=== PATIENT | male | born 1945 | race Caucasian/White ===

== ENCOUNTER → 2017-11-18 16:18 | Outpatient (CLI) | payer MEDICARE, MEDICAID, SELFPAY | PROVIDERS: PCP Family Medicine; Visit Provider Family Medicine | DX: I25.10 Atherosclerotic heart disease of native coronary artery without angina pectoris (principal); R06.02 Shortness of breath | CPT/HCPCS: 93005 ==

== ENCOUNTER → 2017-11-21 09:47 | Outpatient (CLI) | payer MEDICARE, MEDICAID, SELFPAY ==
--- NOTE | 2017-11-21 10:03 | CA_ITS ---
PROCEDURE: 2-D M-mode and color Doppler study INDICATIONS FOR THE TEST: Chest pain COPD Heart Murmur Tobacco Smoking Palpitations Fatigue Syncope Edema HypertensionXDiabetes Mellitus Rheumatic Fever SOBXDOEXObesity HyperlipidemiaX Family History HD Additional History CM,ASHD PATIENT INFORMATION HEIGHT: 65 WEIGHT:195 GENDER: Male B/P:130/80 2-D/M-MODE INTERPRETATION: 2-D MEASUREMENTS OBSERVED VALUES IN CMS Right Ventricular Dimension (RVDd) 1.8 Interventricular Septum (Thickness)(IVsd) 1.1 Left Ventricular Internal Dimensions(LVIDd) 4.7 Left Ventricular Posterior Wall (Thickness)(LVPWd) 1.0 Aortic Root 3.3 Aortic Cusp Separation 1.9 Left Atrial Dimensions (LAD) 3.8 2D 1. Left atrium is mildly enlarged, left ventricle is normal size, there is mild concentric left ventricular hypertrophy present, visually estimated ejection fraction 55% with no obvious regional wall motion abnormality. 2. The right atrium and right ventricle are normal size and contractility. 3. The aortic valve is thickened and calcified leaflet continue to display mobility. 4. The mitral and tricuspid valve leaflets are minimally thickened. 5. The pulmonic valve is poorly visualized. 6. No significant pericardial effusion noted. DOPPLER INTERROGATION: Doppler interrogation of the aortic, mitral and tricuspid valvular presence of mild aortic, mild mitral and tricuspid regurgitation, tricuspid regurgitant jet velocity is insufficient for calculation of the right ventricular systolic pressure, grade 1 diastolic dysfunction seen with tissue Doppler evidence of raised left atrial pressure. CONCLUSION: 1. Mildly enlarged left atrium, normal left ventricular size, mild concentric left ventricular hypertrophy, visually estimated ejection fraction 55% with no obvious regional wall motion abnormality, grade 1 diastolic dysfunction seen with tissue Doppler evidence of raised left atrial pressure. Mild mitral, aortic and tricuspid regurgitation. 3. No significant pericardial effusion noted.
== END ==
PROVIDERS: Family Provider Family Medicine; PCP Family Medicine; Visit Provider Family Medicine
DX: R06.02 Shortness of breath (principal); I25.5 Ischemic cardiomyopathy; I25.10 Atherosclerotic heart disease of native coronary artery without angina pectoris
CPT/HCPCS: 93306

== ENCOUNTER 2017-11-28 11:25 | Inpatient (IN) | payer MEDICARE, MEDICAID, SELFPAY ==
[2017-11-28] VITALS (9 sets, daily range): BP systolic 107–190; BP diastolic 60–112; PULSE 66–103; RESP 18–28; TEMP 36.7–37.2; O2SAT 92–99; BMI 27.8; BMI 33.3; BMI 31.1
--- NOTE | 2017-11-28 | CT_ITS ---
CT angio chest HISTORY: Shortness of breath, chest pain, positive d-dimer ITS.REASON: POS D-DIMER ORDERING PHYSICIAN: Neville Dye MD PATIENT AGE: 72 years TECHNIQUE: Axial images obtained following the administration of 75 mL of Isovue 370 . Sagittal, and coronal reformatted images are also generated and reviewed. COMPARISON: None FINDINGS: There are scattered pulmonary emboli present in the proximal aspect of the right lower lobe branches, right middle lobe branches, left upper lobe branches and left lower lobe branches of the pulmonary arteries. No saddle embolus evident. No aortic aneurysm or dissection. There are few small lymph nodes in the mediastinum most prominent in the subcarinal region measuring up to 2.2 x 1.7 cm. Small nodes are present in the left hilum There is a large hiatal hernia. There is mild cardiomegaly. No obvious pericardial effusion. There is patchy groundglass density in the lower lobes on both sides nonspecific There is a 1 cm noncalcified nodule in the left upper lobe. There is some micronodularity of the margins of this nodule. This is indeterminate and follow-up is recommended. Consolidation is present within the medial aspect of the lingula. Upper abdominal images show a large hiatal hernia. No acute bony anomalies. IMPRESSION: 1. Positive for bilateral pulmonary emboli 2. Consolidation within the lingula system with pneumonia. 3. Indeterminate 1 cm nodule in the left upper lobe. Neoplasm or noncalcified granuloma is considered. PET CT follow-up recommended when patient can tolerate. 4. Large hiatal hernia
--- NOTE | 2017-11-28 11:29 | XR_ITS ---
XR chest 2V HISTORY: ITS.REASON: CHEST PAIN WITH MOVEMENT ORDERING PHYSICIAN: Eriberto Martínez MD PATIENT AGE: 72 years COMPARISON: 03/13/2011 FINDINGS: Cardiomegaly without failure. There is a large hiatal hernia. Patchy density is present in the lingula with an area of pneumonia. No acute bony anomalies. IMPRESSION: 1. Cardiomegaly with hiatal hernia. 2. Patchy lingular infiltrate.
[2017-11-28 11:45] LABS: Basophils % 0.4 % (0.1-2.0); Eosinophils # 0.4 K/mm3 (0.0-0.4); Eosinophils % 4.4 % (0.1-12.0); Lymphocytes # 1.3 K/mm3 (0.7-4.5); Lymphocytes % 14.9 K/mm3 (10-50); Mean Corpuscular Hemoglobin 29.2 pg (27.0-31.2); Mean Corpuscular Volume 91.4 fl (80-94); Mean Platelet Volume 7.4 fl (7.4-10.4); Monocytes # 0.6 K/mm3 (0.1-1.0); Monocytes % 6.7 % (1.7-9.3); Neutrophils # 6.2 K/mm3 (1.8-7.8); Neutrophils % 73.6 % (37.0-80.0); Platelet Count 307 K/mm3 (142-424); Red Blood Count 5.15 M/mm3 (4.60-6.20); Red Cell Distribution Width 14.2 % (11.5-17.5); White Blood Count 8.4 K/mm3 (4.8-10.8)
--- NOTE | 2017-11-28 11:51 | HMH.EDCP ---
ED Disposition Clinical Impression: Chest pain, Hypertensive urgency, Hiatal hernia, Renal insufficiency, Pulmonary embolism Disposition: Still a Patient Condition on Discharge: Fair - Critical Care Critical Care Time: No Attestation: On 11/28/17, the high probability of a clinically significant, sudden or life threatening deterioration of the following system(s) required my full and direct attention, intervention and personal management. The time I documented below is in addition to time spent performing reported procedures but includes the following listed in this critical care notation. Medical Decision Making - Medical Records Medical records reviewed: Yes: I reviewed the patient's medical records. Vital Signs: 11/28/17 11:25 11/28/17 11:40 11/28/17 12:55 Temperature 98.1 F Temperature Source Oral Pulse Rate 85 Pulse Rate [Right Brachial] 66 103 H Respiratory Rate 18 18 Blood Pressure [Right Arm] 190/112 107/60 Blood Pressure Mean [Right Arm] 138 75 Blood Pressure Source [Right Arm] Automatic Cuff Automatic Cuff Blood Pressure Position [Right Arm] Sitting Sitting 02 Sat by Pulse Oximetry 98 99 Oxygen Delivery Method Room Air Room Air - Lab Data Lab Results 11/28/17 11:35: WBC 8.4, RBC 5.15, Hgb 15.0, Hct 47.0, MCV 91.4, MCH 29.2, MCHC 32.0, RDW 14.2, Plt Count 307, MPV 7.4, Neut % (Auto) 73.6, Lymph % (Auto) 14.9, [place] % (Auto) 6.7, Eos % (Auto) 4.4, Baso % (Auto) 0.4, Neut # (Auto) 6.2, Lymph # (Auto) 1.3, [place] # (Auto) 0.6, Eos # (Auto) 0.4, Baso # (Auto) 0.0 11/28/17 11:35: Sodium 143, Potassium 3.9, Chloride 110 H, Carbon Dioxide 29, Anion Gap 7.9, BUN 19 H, Creatinine 1.63 H, Estimated Creat Clear 52, Estimated GFR 42 L, Est GFR ( Amer) 50 L, Glucose 111 H, Calcium 9.4, Total Bilirubin 0.6, AST 18, ALT 30, Alkaline Phosphatase 79, Total Creatine Kinase 84, CK-MB (CK-2) 0.6, CK-MB (CK-2) Rel Index 0.7, Troponin I < 0.02, Total Protein 7.3, Albumin 3.5, Globulin 3.8 H, Albumin/Globulin Ratio 0.9 L 11/28/17 11:35: D-Dimer 2020 H* 11/28/17 11:35: B-Natriuretic Peptide 52 Result diagrams: 11/28/17 11:35 11/28/17 11:35 Orders (Tests/Meds): ED MEDICATIONS Generic Name Dose Route Start Last Admin Trade Name Freq PRN Reason Stop Dose Admin Aspirin 325 mg 11/29/17 09:00 Aspirin Ec 325mg Tablet PO 12/29/17 08:59 DAILY ZAIDA Enoxaparin Sodium 80 mg 11/28/17 14:30 Lovenox 80mg/0.8ml Syringe SQ 12/28/17 14:29 Q12H ZAIDA Sodium Chloride 1,000 mls @ 50 mls/hr 11/28/17 14:07 Sod Chloride 0.9% 1000ml Bag IV 12/28/17 14:06 .Q20H ZAIDA Discontinued Medications Generic Name Dose Route Start Last Admin Trade Name Freq PRN Reason Stop Dose Admin Albuterol/Ipratropium 3 ml 11/28/17 11:43 11/28/17 11:40 Duoneb 3ml Neb IH 11/28/17 11:44 3 ml ONCE ONE Administration Aspirin 324 mg 11/28/17 11:30 11/28/17 11:38 Aspirin 81mg Chewable Tablet PO 11/28/17 11:31 324 mg ONCE ONE Administration Aspirin 325 mg 11/29/17 09:00 Aspirin Ec 325mg Tablet PO 12/29/17 08:59 DAILY ZAIDA Enoxaparin Sodium 80 mg 11/28/17 12:30 11/28/17 12:44 Lovenox 80mg/0.8ml Syringe SQ 11/28/17 12:31 80 mg ONCE ONE Administration Sodium Chloride 250 mls @ 999 mls/hr 11/28/17 13:30 Sodium Chloride 0.9% 250ml Bag IV 11/28/17 13:45 .Q16M ONE Sodium Chloride 250 mls @ 999 mls/hr 11/28/17 13:45 Sodium Chloride 0.9% 250ml Bag IV 11/28/17 14:00 ONCE ONE Sodium Chloride 250 mls @ 999 mls/hr 11/28/17 14:07 Sodium Chloride 0.9% 250ml Bag IV 11/28/17 14:22 .Q16M ONE Sodium Chloride 250 mls @ 999 mls/hr 11/28/17 14:07 Sodium Chloride 0.9% 250ml Bag IV 11/28/17 14:22 ONCE ONE Iopamidol 70 ml 11/28/17 14:00 11/28/17 14:04 Rad-Isovue 300 75ml IV 11/28/17 14:01 70 ml ONCE ONE Administration Nitroglycerin 1 gm 11/28/17 12:30 11/28/17 12:30 Nitroglycerin 1 Inch Oint Ud
--- NOTE | 2017-11-28 11:54 | ED_ITS ---
ED Disposition Clinical Impression: Chest pain, Hypertensive urgency, Hiatal hernia, Renal insufficiency, Pulmonary embolism Disposition: Still a Patient Condition on Discharge: Fair - Critical Care Critical Care Time: No Attestation: On 11/28/17, the high probability of a clinically significant, sudden or life threatening deterioration of the following system(s) required my full and direct attention, intervention and personal management. The time I documented below is in addition to time spent performing reported procedures but includes the following listed in this critical care notation. Medical Decision Making - Medical Records Medical records reviewed: Yes: I reviewed the patient's medical records. Vital Signs: 11/28/17 11:25 11/28/17 11:40 11/28/17 12:55 Temperature 98.1 F Temperature Source Oral Pulse Rate 85 Pulse Rate [Right Brachial] 66 103 H Respiratory Rate 18 18 Blood Pressure [Right Arm] 190/112 107/60 Blood Pressure Mean [Right Arm] 138 75 Blood Pressure Source [Right Arm] Automatic Cuff Automatic Cuff Blood Pressure Position [Right Arm] Sitting Sitting 02 Sat by Pulse Oximetry 98 99 Oxygen Delivery Method Room Air Room Air - Lab Data Lab Results 11/28/17 11:35: WBC 8.4, RBC 5.15, Hgb 15.0, Hct 47.0, MCV 91.4, MCH 29.2, MCHC 32.0, RDW 14.2, Plt Count 307, MPV 7.4, Neut % (Auto) 73.6, Lymph % (Auto) 14.9 , [place] % (Auto) 6.7, Eos % (Auto) 4.4, Baso % (Auto) 0.4, Neut # (Auto) 6.2, Lymph # (Auto) 1.3, [place] # (Auto) 0.6, Eos # (Auto) 0.4, Baso # (Auto) 0.0 11/28/17 11:35: Sodium 143, Potassium 3.9, Chloride 110 H, Carbon Dioxide 29, Anion Gap 7.9, BUN 19 H, Creatinine 1.63 H, Estimated Creat Clear 52, Estimated GFR 42 L, Est GFR ( Amer) 50 L, Glucose 111 H, Calcium 9.4, Total Bilirubin 0.6, AST 18, ALT 30, Alkaline Phosphatase 79, Total Creatine Kinase 84 , CK-MB (CK-2) 0.6, CK-MB (CK-2) Rel Index 0.7, Troponin I < 0.02, Total Protein 7.3, Albumin 3.5, Globulin 3.8 H, Albumin/Globulin Ratio 0.9 L 11/28/17 11:35: D-Dimer 2020 H* 11/28/17 11:35: B-Natriuretic Peptide 52 Result diagrams: 11/28/17 11:35 11/28/17 11:35 Orders (Tests/Meds): ED MEDICATIONS Generic Name Dose Route Start Last Admin Trade Name Freq PRN Reason Stop Dose Admin Aspirin 325 mg 11/29/17 09:00 Aspirin Ec 325mg Tablet PO 12/29/17 08:59 DAILY ZAIDA Enoxaparin Sodium 80 mg 11/28/17 14:30 Lovenox 80mg/0.8ml Syringe SQ 12/28/17 14:29 Q12H ZAIDA Sodium Chloride 1,000 mls @ 50 mls/hr 11/28/17 14:07 Sod Chloride 0.9% 1000ml Bag IV 12/28/17 14:06 .Q20H ZAIDA Discontinued Medications Generic Name Dose Route Start Last Admin Trade Name Freq PRN Reason Stop Dose Admin Albuterol/Ipratropium 3 ml 11/28/17 11:43 11/28/17 11:40 Duoneb 3ml Neb IH 11/28/17 11:44 3 ml ONCE ONE Administration Aspirin 324 mg 11/28/17 11:30 11/28/17 11:38 Aspirin 81mg Chewable Tablet PO 11/28/17 11:31 324 mg ONCE ONE Administration Aspirin 325 mg 11/29/17 09:00 Aspirin Ec 325mg Tablet PO 12/29/17 08:59 DAILY ZAIDA Enoxaparin Sodium 80 mg 11/28/17 12:30 11/28/17 12:44 Lovenox 80mg/0.8ml Syringe SQ 11/28/17 12:31 80 mg ONCE ONE Administration Sodium Chloride 250 mls @ 999 mls/hr 02
[2017-11-28 12:06] LABS: Alanine Aminotransferase 30 U/L (12-78); Albumin Level 3.5 gm/dL (3.4-5.0); Albumin/Globulin Ratio 0.9 (1.1-1.8); Alkaline Phosphatase 79 U/L (46-116); Anion Gap 7.9 mEq/L (5-15); Aspartate Amino Transferase 18 U/L (15-37); Bilirubin,Total 0.6 mg/dL (0.2-1.0); Blood Urea Nitrogen 19 mg/dL (7-18); CKMB Relative Index 0.7 U/L (0-4.0); Calcium 9.4 mg/dL (8.5-10.1); Carbon Dioxide 29 mmol/L (21.0-32.0); Chloride 110 mmol/L (98-107); Creatine Kinase 84 U/L (39-308); Creatine Kinase MB 0.6 mg/ml (0.0-3.6); Creatinine Clearance Estimated 52 mL/min (0-300); Creatinine,Serum 1.63 mg/dL (0.70-1.30); Estimated Glomerular Filt Rate 42 ml/min (>60); GFR (African American) 50 ML/MIN (>60); Globulin 3.8 gm/dl (1.3-3.2); Glucose 111 mg/dL (74-106); Potassium 3.9 mmoL/L (3.5-5.1); Sodium 143 mmol/L (136-145); Total Protein,Serum 7.3 gm/dL (6.4-8.2); Troponin I < 0.02 ng/ml (0.00-0.06)
[2017-11-28 12:24] LABS: D-Dimer 2020 (0-400)
--- NOTE | 2017-11-28 13:11 | PC.NURSE ---
PT UP TO RESTROOM
--- NOTE | 2017-11-28 16:02 | HMH.HP ---
*Admission Date: 11/28/17 <Spring Gerard 11/28/17 17:13> *Chief complaint: SOA <Spring Gerard 11/28/17 17:13> *History of present illness: The chart is reviewed. Admitted with pulmonary embolisms. Receiving enoxaparin complains of chest pain. Pain medication will be ordered. [facility] <Neville Dye - 11/28/17 19:44> Mr. Gallardo is a 72 year old white male with a history of hypertension and [place]. 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 He then woke up at 0800 am with left-sided chest pain and SOA. He describes the pain as dull and it increases with deep breathing, cough and upper extremities movement. He denies having fever, chills, or productive sputum. He denies any radiation. He denies palpitations and nausea. He denies hematemesis, coffee-ground emesis, or bleeding per rectum. His blood pressure was 180/100 in the ER. He was evaluated and a CTA showed a PE. He was admitted. <Spring Gerard 11/28/17 17:41> [facility] History Medical History: Reports:: Cardiomyopathy, Hyperlipidemia, Hypertension, Myocardial Infarction Denies:: Cancer, Diabetes Mellitus Type 1, Diabetes Mellitus Type 2, MRSA <Spring Gerard 11/28/17 17:41> Other Surgeries: Yes: Hernia Repair <Spring Gerard 11/28/17 17:13> Comment: Fatty tumor removed from back <Spring Gerard 11/28/17 17:41> - *Social History Educational Level: Completed High School <Spring Gerard 11/28/17 17:13> Smoking Status: Unknown if ever smoked <Spring Gerard 11/28/17 17:13> Tobacco Type: smokeless tobacco <Spring Gerard 11/28/17 17:13> Smoking End Date: 2 weeks ago <Spring Gerard 11/28/17 17:13> Alcohol Intake: never <Spring Gerard 11/28/17 17:13> Occupational Status: retired <Spring Gerard 11/28/17 17:13> - Psychiatric History Expresses thoughts of harming self/others: None <Spring Gerard 11/28/17 17:13> Suicide Plan Description: No Plan <Spring Gerard 11/28/17 17:13> *Family Hx:: Diabetes, Hypertension <Spring Gerard 11/28/17 17:41> Review of Systems - Constitutional Denies body ache(s), Denies chills, Denies weakness <Spring Gerard 11/28/17 17:41> - Eyes Denies blurry vision, Denies double vision <Spring Gerard 11/28/17 17:41> - ENT Denies nasal discharge, Denies sore throat <Spring Gerard 11/28/17 17:41> - *Cardiovascular Reports chest pain, Denies irregular heart rhythm, Denies leg swelling <Spring Gerard 11/28/17 17:41> - *Respiratory Reports shortness of breath <Spring Gerard 11/28/17 17:41> - *Gastrointestinal Denies abdominal pain, Denies constipation, Denies nausea, Denies vomiting <Spring Gerard 11/28/17 17:41> - *Genitourinary Denies difficulty urinating, Denies painful urination <Spring Gerard 11/28/17 17:41> - *Musculoskeletal Denies joint pain, Denies muscle weakness <Spring Gerard 11/28/17 17:41> - *Neurologic Denies headache(s), Denies dizziness <Spring Gerard 11/28/17 17:41> Meds Home Medications Medication Instructions Recorded Confirmed Type Aspirin [Aspir 81] 81 mg PO DAILY 11/28/17 11/28/17 History Aspirin [[place] Aspirin] 81 mg PO DAILY 11/28/17 11/28/17 History Atorvastatin Calcium [Atorvastatin 80 mg PO DAILY 11/28/17 11/28/17 History 80mg Tab] B12/Levomefolate Calcium/B-6 1 each PO DAILY 11/28/17 11/28/17 History [Folbic Rf Tablet] Citalopram Hydrobromide [Celexa 20 mg PO DAILY 11/28/17 11/28/17 History 20mg Tablet] Ergocalciferol (Vitamin D2) 400 unit PO DAILY 11/28/17 11/28/17 History [Vitamin D] Fenofibrate Nanocrystallized 145 mg PO DAILY 11/28/17 11/28/17 History [Fenofibrate] Lisinopril [Lisinopril 10mg Tab] 10 mg PO DAILY MDD . 11/28/17 11/28/17 History Metoprolol Tartrate [Lopressor 100 mg PO DAILY 11/28/17 11/28/17 History 100mg Tablet] Metoprolol Tartrate [Lopressor 50 mg PO PM 11/28/17 11/28/17 History 50mg tablet] Mirabegron [Myrbetriq] 25 mg PO DAILY 11/28/17 11/28/17 History Niacin [[facility] [place]
--- NOTE | 2017-11-28 17:13 | P.HP_ITS ---
*Admission Date: 11/28/17 <Spring Gerard 11/28/17 17:13> *Chief complaint: SOA <Spring Gerard 11/28/17 17:13> *History of present illness: The chart is reviewed. Admitted with pulmonary embolisms. Receiving enoxaparin complains of chest pain. Pain medication will be ordered. [facility] <Neville Dye - 11/28/17 19:44> Mr. Gallardo is a 72 year old white male with a history of hypertension and [place]. 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 He then woke up at 0800 am with left-sided chest pain and SOA. He describes the pain as dull and it increases with deep breathing, cough and upper extremities movement. He denies having fever, chills, or productive sputum. He denies any radiation. He denies palpitations and nausea. He denies hematemesis, coffee-ground emesis , or bleeding per rectum. His blood pressure was 180/100 in the ER. He was evaluated and a CTA showed a PE. He was admitted. <Spring Gerard 11/28/17 17:41> [facility] History Medical History: Reports:: Cardiomyopathy, Hyperlipidemia, Hypertension, Myocardial Infarction Denies:: Cancer, Diabetes Mellitus Type 1, Diabetes Mellitus Type 2, MRSA < Spring Gerard 11/28/17 17:41> Other Surgeries: Yes: Hernia Repair <Spring Gerard 11/28/17 17:13> Comment: Fatty tumor removed from back <Spring Gerard 11/28/17 17:41> - *Social History Educational Level: Completed High School <Spring Gerard 11/28/17 17:13> Smoking Status: Unknown if ever smoked <Spring Gerard 11/28/17 17:13> Tobacco Type: smokeless tobacco <Spring Gerard 11/28/17 17:13> Smoking End Date: 2 weeks ago <Spring Gerard 11/28/17 17:13> Alcohol Intake: never <Spring Gerard 11/28/17 17:13> Occupational Status: retired <Spring Gerard 11/28/17 17:13> - Psychiatric History Expresses thoughts of harming self/others: None <Spring Gerard 11/28/17 17: 13> Suicide Plan Description: No Plan <Spring Gerard 11/28/17 17:13> *Family Hx:: Diabetes, Hypertension <Spring Gerard 11/28/17 17:41> Review of Systems - Constitutional Denies body ache(s), Denies chills, Denies weakness <Spring Gerard 11/28/17 17:41> - Eyes Denies blurry vision, Denies double vision <Spring Gerard 11/28/17 17:41> - ENT Denies nasal discharge, Denies sore throat <Spring Gerard 11/28/17 17:41> - *Cardiovascular Reports chest pain, Denies irregular heart rhythm, Denies leg swelling <Spring Gerard 11/28/17 17:41> - *Respiratory Reports shortness of breath <Spring Gerard 11/28/17 17:41> - *Gastrointestinal Denies abdominal pain, Denies constipation, Denies nausea, Denies vomiting < Spring Gerard 11/28/17 17:41> - *Genitourinary Denies difficulty urinating, Denies painful urination <Spring Gerard 17:41> - *Musculoskeletal Denies joint pain, Denies muscle weakness <Spring Gerard 11/28/17 17:41> - *Neurologic Denies headache(s), Denies dizziness <Spring Gerard 11/28/17 17:41> Meds Home Medications Medication Instructions Recorded Confirmed Type Aspirin [Aspir 81] 81 mg PO DAILY 11/28/17 11/28/17 History Aspirin [[employer] Aspirin] 81 mg PO DAILY 11/28/17 11/28/17 History Atorvastatin Calcium [Atorvastatin 80 mg PO DAILY 11/28/17 11/28/17 History 80mg Tab] B12/Levomefolate Calcium/B-6 1 each PO DAILY 11/28/17 11/28/17 History [Folbic Rf Tablet] Citalopram Hydrobromide [Celexa 20 mg PO DAILY 11/28/17 11/28/17 History 20mg Tablet] Ergocalciferol (Vitamin D2) 400 unit PO DAILY 11/28/17 11/28/17 History [Vitamin D] Fen
[2017-11-28 18:04] LABS: Troponin I < 0.02 ng/ml (0.00-0.06)
--- NOTE | 2017-11-28 19:15 | PC.NURSE ---
REPORT GIVEN TO ETTA CAZARES RN
[2017-11-28 21:00] LABS: Troponin I < 0.02 ng/ml (0.00-0.06)
[2017-11-29] VITALS (11 sets, daily range): BP systolic 116–154; BP diastolic 71–102; PULSE 65–86; RESP 18–34; TEMP 36.6–37.1; O2SAT 93–97
--- NOTE | 2017-11-29 03:43 | PC.NURSE ---
PT CONT TO HAVE CHEST/PLEURAL PAIN. PT STATES IT FEELS LIKE A PULLED MUSCLE. LUNGS ARE DIMINISHED. PT REMAINS ON 2L OF NC WITH AN SAT OF 95% AT THIS TIME. 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 MORPHINE 4 MG WAS ADMIN X2 AND 2MG OF MORPHINE X1. PT REMAINS NSR ON TELEMETRY. LOVENOX ADMIN PER DEC. ABX ALSO ADMIN PER DEC. PT WAS EDUCATED ON MEDICATIONS GIVEN. NO OTHER CONCERNS AT THIS TIME. WILL CONT TO MONITOR.
--- NOTE | 2017-11-29 07:40 | P.CONPHA_ITS ---
[facility] Pharmacy VTE Monitoring - Patient Demographics Admission date: 11/28/17 Report Date: 11/29/17 Time: 07:39 Allergies/Adverse Reactions: Patient Allergies No Known Allergies Allergy (Verified 11/28/17 11:26) Height: 1.65 m Weight: 84.878 kg Patient Problems: Current Active Problems Chest pain (Acute) Hypertensive urgency (Acute) Hiatal hernia (Chronic) Renal insufficiency (Acute) Pulmonary embolism (Acute) - VTE Risk Labs: VTE Related Lab Results Hgb 15.0 g/dL (14.1-18.0) 11/28/17 11:35 Hct 47.0 % (42.0-52.0) 11/28/17 11:35 Plt Count 307 K/mm3 (142-424) 11/28/17 11:35 BUN 19 mg/dL (7-18) H 11/28/17 11:35 Creatinine 1.63 mg/dL (0.70-1.30) H 11/28/17 11:35 Estimated Creat Clear 52 mL/min (0-300) 11/28/17 11:35 Was VTE Risk Assessment Performed: Yes VTE Score: 1 VTE Risk Level: Very Low Risk - Prophylaxis VTE Prophylaxis Ordered?: Yes Types of VTE Prophylaxis: Pharmacological Pharmacologic Type: Enoxaparin - VTE Diagnosis Confirmed Treatment or plan recommended: Continue Current Treatment
--- NOTE | 2017-11-29 07:51 | PC.NURSE ---
0715 RECEIVED REPORT FROM ETTA CAZARES RN
--- NOTE | 2017-11-29 08:39 | HMH.ACPN2 ---
Internal Medicine - PN: Subj *Date: 11/29/17 *Time: 08:39 Interval history: Patient states he is feeling better today. Chest pain is improving. He slept last night and ate most of his breakfast. Exam Vital signs and Labs for Last 24 Hours: Temp Pulse Resp BP Pulse Ox 98.1 F 70 20 122/76 93 L 11/29/17 04:00 11/29/17 04:00 11/29/17 04:00 11/29/17 04:00 11/29/17 04:00 Laboratory Results - last 24 hr 11/28/17 17:40: Troponin I < 0.02 11/28/17 20:30: Troponin I < 0.02 I & O for Last 24 hours: Intake & Output 11/26/17 11/27/17 11/28/17 11/29/17 11:59 11:59 11:59 11:59 Intake Total 992 / 992 Balance 992 / 992 Weight 187 lb 2 oz - Constitutional no acute distress - *Routine Respiratory Exam Present: CTA bilaterally - *Routine Cardiovascular Exam Present: RRR - *Routine Abdominal Exam Present: soft, normoactive bowel sounds. Absent: tenderness - *Routine Extremities Exam Absent: edema Assessment and Plan (1) Pulmonary embolism Current visit: Yes Status: Acute Category: Medical Code(s): I26.99 - Other pulmonary embolism without acute cor pulmonale (2) Chest pain Current visit: Yes Status: Acute Category: Medical Code(s): R07.9 - Chest pain, unspecified (3) Hypertensive urgency Current visit: Yes Status: Acute Category: Medical Code(s): I16.0 - Hypertensive urgency (4) Renal insufficiency Current visit: Yes Status: Acute Category: Medical Code(s): N28.9 - Disorder of kidney and ureter, unspecified (5) Hiatal hernia Current visit: Yes Status: Chronic Category: Medical Code(s): K44.9 - Diaphragmatic hernia without obstruction or gangrene - Assessment and plan all Dx Assessment and Plan for all problems:: Patient has been started on rocephin for a possible pneumonia. He is currently getting lovenox. Will get lower extremity dopplers today.
--- NOTE | 2017-11-29 11:00 | NVE_ITS ---
Venous Exam Indications: 415.19 Other pulmonary embolism and infarction. IMPRESSIONS 1. There is no evidence of significant Reflux. 2. No evidence of deep or superficial vein thrombosis involving the right lower extremity and left lower extremity History: PMH: Pulmonary embolus. Risk factors: Hypertension. Complete lower extremity venous duplex evaluation. Doppler flow study including spectral analysis, color and edgar scale imaging. Location: Bedside. Patient status: Inpatient. Tables: Venous flow and imaging: + +-------+ + Location Overall Flow properties + +-------+ + Right common femoral Patent Normal phasicity; spontaneous; normal augmentation; compressible + +-------+ + Right saphenofemoral junction Patent Compressible + +-------+ + Right profunda femoral Patent Compressible + +-------+ + Right femoral Patent Normal phasicity; spontaneous; normal augmentation; compressible; no reflux + +-------+ + Right greater saphenous Patent Normal phasicity; spontaneous; normal augmentation; compressible + +-------+ + Right popliteal Patent Normal phasicity; spontaneous; normal augmentation; compressible + +-------+ + Right posterior tibial Patent Compressible + +-------+ + Right peroneal Patent Compressible + +-------+ + Right gastrocnemius Patent Compressible + +-------+ + Right soleal Patent Compressible + +-------+ + Left common femoral Patent Normal phasicity; spontaneous; normal augmentation; compressible + +-------+ + Left saphenofemoral junction Patent Compressible + +-------+ + Left profunda femoral Patent Compressible + +-------+ + Left femoral Patent Normal phasicity; spontaneous; normal augmentation; compressible + +-------+ + Left greater saphenous Patent Normal phasicity; spontaneous; normal augmentation; compressible + +-------+ + Left popliteal
--- NOTE | 2017-11-29 14:35 | XR_ITS ---
XR chest portable HISTORY: Follow-up pneumonia ITS.REASON: SOA, CHEST PAIN ORDERING PHYSICIAN: Neville Dye MD PATIENT AGE: 72 years COMPARISON: To 118 FINDINGS: There are low lung lines. There is a hiatal hernia with mild cardiomegaly. Increasing consolidation is present within the lingula consistent with worsening pneumonia. IMPRESSION: Worsening lingular pneumonia
[2017-11-29 14:52] LABS: ABG Base Excess -1.2 mmol/L (-2.4-2.3); ABG HCO3 23.5 mmhg (22.0-26.0); ABG Oxygen Saturation 96 % (90-100); ABG PCO2 38.7 mmhg (35.0-45.0); ABG TCO2 24.7 mmhg (23-27)
[2017-11-29 14:53] LABS: Allen's Test ACCEPTABLE; Oxygen 2LPM %
[2017-11-29 14:54] LABS: Source L RADIAL
[2017-11-29 15:12] LABS: INR 1.03 (0.9-1.1); Prothrombin Time 11.1 seconds (9.4-11.8)
[2017-11-29 15:26] LABS: Creatine Kinase 61 U/L (39-308); Troponin I < 0.02 ng/ml (0.00-0.06)
[2017-11-29 15:31] LABS: CKMB Relative Index 0.8 U/L (0-4.0); Creatine Kinase MB < 0.5 mg/ml (0.0-3.6)
[2017-11-29 15:50] LABS: INR 1.04 (0.9-1.1); Prothrombin Time 11.2 seconds (9.4-11.8)
[2017-11-29 17:05] LABS: Basophils % 0.4 % (0.1-2.0); Eosinophils # 0.2 K/mm3 (0.0-0.4); Eosinophils % 1.7 % (0.1-12.0); Hematocrit 45.9 % (42.0-52.0); Hemoglobin 14.6 g/dL (14.1-18.0); Lymphocytes % 10.6 K/mm3 (10-50); Mean Corpuscular HGB Conc 31.9 g/dL (31.8-35.4); Mean Corpuscular Hemoglobin 29.6 pg (27.0-31.2); Mean Corpuscular Volume 92.8 fl (80-94); Mean Platelet Volume 8.3 fl (7.4-10.4); Monocytes # 0.6 K/mm3 (0.1-1.0); Monocytes % 6.7 % (1.7-9.3); Neutrophils # 7.8 K/mm3 (1.8-7.8); Neutrophils % 80.7 % (37.0-80.0); Platelet Count 271 K/mm3 (142-424); Red Blood Count 4.94 M/mm3 (4.60-6.20); Red Cell Distribution Width 14.1 % (11.5-17.5); White Blood Count 9.6 K/mm3 (4.8-10.8)
--- NOTE | 2017-11-29 19:38 | PC.NURSE ---
PATIENT IS RESTING IN BED WITH FAMILY AT BEDSIDE. HE HAS SEVERE PAIN LEFT CHEST WHEN COUGHING. EARLIER IN SHIFT AROUND 1430 HE HAD A COUGHING SPELL AND BECAME SOA AND DIAPHORETIC. DR TELLEZ ORDERED A CARDIAC WORKUP INCLUDING CXR, CARDIAC ENZYMES, EKG, AND ABG. CARDIAC WORKUP WAS UNREMARKABLE. PATIENT CALMED DOWN AND STARTED FEELING BETTER AFTER 4MG MORPHINE GIVEN PER MAR. PATIENT IS CALM AT THIS TIME VISITING WITH FAMILY. CALL LIGHT WITHIN REACH WILL CONTINUE TO MONITOR
[2017-11-30] VITALS (12 sets, daily range): BP systolic 111–146; BP diastolic 63–90; PULSE 70–90; RESP 16–30; TEMP 36.7–36.9; O2SAT 93–96
--- NOTE | 2017-11-30 00:42 | PC.NURSE ---
AT [address] TELLEZ NOTIFIED OF PTS DECREASED O2 SAT TO LOW 80'S. PT WITH COUGHING SPELL, DIAPHORETIC. LUNGS DIMINISHED THOUGHOUT WITH WHEEZING. INCREASED OXYGEN TO 3L PER NC. MORPHINE 2MG IV GIVEN. RECEIVED ORDER FOR DUONEB NOW AND TID. PT EVENTUALLY FELL OFF TO SLEEP AND O2 SATS 91-93 PERCENT ON 3L PER NC.
--- NOTE | 2017-11-30 06:28 | PC.NURSE ---
PT HAS RESTED WELL SINCE EPISODE OF DECREASED SATS, AND COUGH. REQUESTING MORPHINE EVERY 2 -3 HOURS FOR CHEST DISCOMFORT AND GENERALIZED PAIN. AT BSD. NSR ON TELEMETRY. PT CURRENTLY ON 3L PER NC WITH O2 SAT 93 PERCENT.
[2017-11-30 06:49] LABS: INR 1.12 (0.9-1.1); Prothrombin Time 12.1 seconds (9.4-11.8)
[2017-11-30 06:56] LABS: Alanine Aminotransferase 23 U/L (12-78); Albumin/Globulin Ratio 0.8 (1.1-1.8); Alkaline Phosphatase 62 U/L (46-116); Anion Gap 13.2 mEq/L (5-15); Aspartate Amino Transferase 21 U/L (15-37); Bilirubin,Total 0.5 mg/dL (0.2-1.0); Blood Urea Nitrogen 24 mg/dL (7-18); Calcium 9.3 mg/dL (8.5-10.1); Carbon Dioxide 26 mmol/L (21.0-32.0); Chloride 106 mmol/L (98-107); Creatinine Clearance Estimated 54 mL/min (0-300); Creatinine,Serum 1.45 mg/dL (0.70-1.30); Estimated Glomerular Filt Rate 48 ml/min (>60); GFR (African American) 58 ML/MIN (>60); Glucose 110 mg/dL (74-106); Potassium 4.2 mmoL/L (3.5-5.1); Sodium 141 mmol/L (136-145)
--- NOTE | 2017-11-30 07:46 | PC.NURSE ---
REPORT OBTAINED FROM AMBAR EVANS
--- NOTE | 2017-11-30 15:27 | P.PN_ITS ---
Internal Medicine - PN: Subj *Date: 11/30/17 *Time: 15:23 Interval history: The patient was seen this morning. He had some discomfort during the night but seems more stable this morning. His states that she thinks he is doing better. Exam Vital signs and Labs for Last 24 Hours: Temp Pulse Resp BP Pulse Ox 98.1 F 70 18 127/63 96 11/30/17 12:00 11/30/17 12:00 11/30/17 12:00 11/30/17 12:00 11/30/17 12:00 Laboratory Results - last 24 hr 11/29/17 14:55: Total Creatine Kinase 61, CK-MB (CK-2) < 0.5, CK-MB (CK-2) Rel Index 0.8, Troponin I < 0.02 11/29/17 14:55: PT 11.1, INR 1.03 11/29/17 14:55: WBC 9.6, RBC 4.94, Hgb 14.6, Hct 45.9, MCV 92.8, MCH 29.6, MCHC 31.9, RDW 14.1, Plt Count 271, MPV 8.3, Neut % (Auto) 80.7 H, Lymph % (Auto) 10.6, [place] % (Auto) 6.7, Eos % (Auto) 1.7, Baso % (Auto) 0.4, Neut # (Auto) 7.8 , Lymph # (Auto) 1.0, [place] # (Auto) 0.6, Eos # (Auto) 0.2, Baso # (Auto) 0.0 11/29/17 15:30: PT 11.2, INR 1.04 11/30/17 05:50: Sodium 141, Potassium 4.2, Chloride 106, Carbon Dioxide 26, Anion Gap 13.2, BUN 24 H D, Creatinine 1.45 H, Estimated Creat Clear 54, Estimated GFR 48 L, Est GFR ( Amer) 58 L, Glucose 110 H, Calcium 9.3, Total Bilirubin 0.5, AST 21, ALT 23, Alkaline Phosphatase 62, Total Protein 7.0 , Albumin 3.0 L, Globulin 4.0 H, Albumin/Globulin Ratio 0.8 L 11/30/17 05:50: PT 12.1 H, INR 1.12 H I & O for Last 24 hours: Intake & Output 11/28/17 11/29/17 11/30/17 12/01/17 11:59 11:59 11:59 11:59 Intake Total 992 / 992 1773 / 1773 Balance 992 / 992 1773 / 1773 Weight 187 lb 2 oz Microbiology Reports for the Last 24 Hours: Microbiology 11/29/17 20:40 Sputum - Expectorated Sputum Gram Stain - Final - Constitutional no acute distress - *Routine HEENT Exam Eye: Present: PERRL ENT: Present: mucous membranes moist - *Routine Respiratory Exam Present: decreased breath sounds Comments: Air movement. Some bibasilar rales. I do not hear any specific endings in the lingular area. - *Routine Cardiovascular Exam Present: RRR - *Routine Extremities Exam Absent: edema Assessment and Plan (1) Pulmonary embolism Current visit: Yes Status: Acute Category: Medical Code(s): I26.99 - Other pulmonary embolism without acute cor pulmonale (2) Chest pain Current visit: Yes Status: Acute Category: Medical Code(s): R07.9 - Chest pain, unspecified (3) Hypertensive urgency Current visit: Yes Status: Acute Category: Medical Code(s): I16.0 - Hypertensive urgency (4) Renal insufficiency Current visit: Yes Status: Acute Category: Medical Code(s): N28.9 - Disorder of kidney and ureter, unspecified (5) Hiatal hernia Current visit: Yes Status: Chronic Category: Medical Code(s): K44.9 - Diaphragmatic hernia without obstruction or gangrene - Assessment and plan all Dx Assessment and Plan for all problems:: Daily Coumadin ordered.
--- NOTE | 2017-11-30 15:46 | HMH.PHAVTE ---
[facility] Pharmacy VTE Monitoring - Patient Demographics Admission date: 11/28/17 Report Date: 11/30/17 Time: 15:46 Allergies/Adverse Reactions: Patient Allergies No Known Allergies Allergy (Verified 11/28/17 11:26) Height: 1.65 m Weight: 84.878 kg Patient Problems: Current Active Problems Chest pain (Acute) Hypertensive urgency (Acute) Hiatal hernia (Chronic) Renal insufficiency (Acute) Pulmonary embolism (Acute) Confusion (Acute) - VTE Risk Labs: VTE Related Lab Results Hgb 14.6 g/dL (14.1-18.0) 11/29/17 14:55 Hct 45.9 % (42.0-52.0) 11/29/17 14:55 Plt Count 271 K/mm3 (142-424) 11/29/17 14:55 PT 12.1 seconds (9.4-11.8) H 11/30/17 05:50 INR 1.12 (0.9-1.1) H 11/30/17 05:50 BUN 24 mg/dL (7-18) H D 11/30/17 05:50 Creatinine 1.45 mg/dL (0.70-1.30) H 11/30/17 05:50 Estimated Creat Clear 54 mL/min (0-300) 11/30/17 05:50 Was VTE Risk Assessment Performed: Yes VTE Score: 1 VTE Risk Level: Very Low Risk - Prophylaxis VTE Prophylaxis Ordered?: Yes Types of VTE Prophylaxis: TEDS Knee High, Pharmacological Pharmacologic Type: Enoxaparin (AND WARFARIN) - VTE Diagnosis Confirmed Treatment or plan recommended: Add Warfarin Warfarin counseling provided if indicated?: Yes Bridge therapy started inpt?: Yes (LOVENOX AND WARFARIN) Comment: INR ON DISCHARGE IS 2.49
[2017-11-30 16:18] LABS: Basophils % 0.4 % (0.1-2.0); Eosinophils # 0.3 K/mm3 (0.0-0.4); Eosinophils % 3.7 % (0.1-12.0); Hematocrit 40.6 % (42.0-52.0); Lymphocytes # 0.9 K/mm3 (0.7-4.5); Lymphocytes % 11.3 K/mm3 (10-50); Mean Corpuscular Hemoglobin 29.8 pg (27.0-31.2); Mean Corpuscular Volume 93.1 fl (80-94); Mean Platelet Volume 7.9 fl (7.4-10.4); Monocytes # 0.6 K/mm3 (0.1-1.0); Monocytes % 6.5 % (1.7-9.3); Neutrophils # 6.5 K/mm3 (1.8-7.8); Neutrophils % 78.2 % (37.0-80.0); Platelet Count 222 K/mm3 (142-424); Red Blood Count 4.36 M/mm3 (4.60-6.20); White Blood Count 8.4 K/mm3 (4.8-10.8)
--- NOTE | 2017-11-30 17:50 | PC.NURSE ---
patient has done well this shift. has been up to use bathroom but was reminded to not walk much at this time. did get sob at times with exertion. is starting to cough up some sputum that was tinged with blood a couple of times. no concerns at this time. still having pain in chest staying about a 5. vss will continue to monitor.
--- NOTE | 2017-11-30 19:57 | PC.NURSE ---
report give to cristal ward
[2017-12-01] VITALS (15 sets, daily range): BP systolic 144–186; BP diastolic 68–108; PULSE 60–96; RESP 18–22; TEMP 36.3–36.9; O2SAT 93–97
--- NOTE | 2017-12-01 04:36 | PC.NURSE ---
NSR NOTED PER MACHINE CHOCOLATE MOLDER. WHEEZING NOTED PER AUSCULTATION OF LUNG SOUNDS.
--- NOTE | 2017-12-01 05:40 | PC.NURSE ---
C/O PULLING PAIN IN CHEST FOLLOWING COUGHING, REQUESTED PRN PAIN MEDICATION, RATED PAIN 7/10 ON 0-10 JUICE SCALEMAN. MEDICATED WITH PRN MORPHINE PER DEC.
[2017-12-01 06:14] LABS: Prothrombin Time 22.8 seconds (9.4-11.8)
--- NOTE | 2017-12-01 10:23 | CT_ITS ---
CT abdomen pelvis w con CLINICAL INDICATION: Abdominal tenderness and bloating. Left upper lobe nodule, evaluate for neoplasm ITS.REASON: PE ORDERING PHYSICIAN: Neville Dye MD PATIENT AGE: 72 years COMPARISON: 11/30/2015 TECHNIQUE: Axial images obtained with sagittal and coronal reformats. PROCEDURE: Oral Contrast: Redicat IV Contrast: 75 mL Isovue-[id number]. FINDINGS: Is a moderate to large sized hiatal hernia with compressive atelectasis. Small left pleural effusion. Atelectatic change left lung base. Pulmonary emboli noted in the lower lobe branches. Atelectasis or infiltrate within the lingula and left lower lobe No focal liver lesion. The gallbladder, spleen, pancreas and adrenal glands are unremarkable. No renal mass or obstructing renal or ureteral calculi. Diverticulum is present projecting off the descending portion of the duodenum Unremarkable appendix. No evidence of intestinal obstruction or free air. Tiny umbilical hernia contains fat. Colonic diverticulosis noted. No evidence of diverticulitis. Lobular soft tissue density is present in the right inguinal region 2.8 x 2.2 cm similar to the previous exam. Mildly enlarged prostate of 5.8 cm. There is a small left inguinal hernia containing fat. Grade 1 spondylitic spondylolisthesis L5-S1. IMPRESSION: 1. Large hiatal hernia. 2. Small left effusion with bibasilar atelectasis and/or infiltrate 3. No acute abdominal or pelvic findings. 4. Soft tissue density right inguinal region similar to the previous exam and could be related to postsurgical change with scarring from prior hernia repair. Adenopathy is also a consideration. Small left inguinal hernia 4. Mildly enlarged prostate 5. No evidence of abdominal or pelvic metastasis
--- NOTE | 2017-12-01 10:26 | HMH.ACPN2 ---
Internal Medicine - PN: Subj *Date: 12/01/17 *Time: 10:26 Interval history: He feels significantly better. He is not having chest pain at this time. His chest is slightly tender to palpation. His lungs sound clear. He complains of constipation. His INR is therapeutic. Coumadin dose will be adjusted. CT of the abdomen will be obtained. Exam Vital signs and Labs for Last 24 Hours: Temp Pulse Resp BP Pulse Ox 97.4 F L 96 H 20 156/100 94 L 12/01/17 08:00 12/01/17 08:00 12/01/17 08:00 12/01/17 08:00 12/01/17 08:30 Laboratory Results - last 24 hr 11/30/17 16:03: WBC 8.4, RBC 4.36 L, Hgb 13.0 L, Hct 40.6 L, MCV 93.1, MCH 29.8, MCHC 32.0, RDW 14.0, Plt Count 222, MPV 7.9, Neut % (Auto) 78.2, Lymph % (Auto) 11.3, [place] % (Auto) 6.5, Eos % (Auto) 3.7, Baso % (Auto) 0.4, Neut # (Auto) 6.5, Lymph # (Auto) 0.9, [place] # (Auto) 0.6, Eos # (Auto) 0.3, Baso # (Auto) 0.0 12/01/17 05:35: PT 22.8 H, INR 2.10 H Laboratory Tests 11/30/17 11/30/17 11/30/17 05:50 05:50 16:03 WBC 8.4 Hgb 13.0 L Hct 40.6 L INR 1.12 H Sodium 141 Potassium 4.2 Chloride 106 BUN 24 H D Creatinine 1.45 H 12/01/17 05:35 WBC Hgb Hct INR 2.10 H Sodium Potassium Chloride BUN Creatinine I & O for Last 24 hours: Intake & Output 11/28/17 11/29/17 11/30/17 12/01/17 11:59 11:59 11:59 11:59 Intake Total 992 / 992 1773 / 1773 2803 / 2803 Output Total 950 / 950 Balance 992 / 992 1773 / 1773 1853 / 1853 Weight 187 lb 2 oz 187 lb 2 oz - Constitutional no acute distress - *Routine HEENT Exam Eye: Present: PERRL ENT: Present: mucous membranes moist - Routine Chest/Breast/Axilla Exam Chest wall: Present: tenderness (Lessened) - *Routine Respiratory Exam Present: CTA bilaterally - *Routine Cardiovascular Exam Present: RRR, S4 - *Routine Abdominal Exam Present: soft. Absent: tenderness, organomegaly - *Routine Extremities Exam Absent: edema - *Routine Neurological Exam Present: alert, oriented X3 Assessment and Plan (1) Pulmonary embolism Current visit: Yes Status: Acute Category: Medical Code(s): I26.99 - Other pulmonary embolism without acute cor pulmonale (2) Chest pain Current visit: Yes Status: Acute Category: Medical Code(s): R07.9 - Chest pain, unspecified (3) Hypertensive urgency Current visit: Yes Status: Acute Category: Medical Code(s): I16.0 - Hypertensive urgency (4) Renal insufficiency Current visit: Yes Status: Acute Category: Medical Code(s): N28.9 - Disorder of kidney and ureter, unspecified (5) Hiatal hernia Current visit: Yes Status: Chronic Category: Medical Code(s): K44.9 - Diaphragmatic hernia without obstruction or gangrene
--- NOTE | 2017-12-01 10:29 | P.PN_ITS ---
Internal Medicine - PN: Subj *Date: 12/01/17 *Time: 10:26 Interval history: He feels significantly better. He is not having chest pain at this time. His chest is slightly tender to palpation. His lungs sound clear. He complains of constipation. His INR is therapeutic. Coumadin dose will be adjusted. CT of the abdomen will be obtained. Exam Vital signs and Labs for Last 24 Hours: Temp Pulse Resp BP Pulse Ox 97.4 F L 96 H 20 156/100 94 L 12/01/17 08:00 12/01/17 08:00 12/01/17 08:00 12/01/17 08:00 12/01/17 08:30 Laboratory Results - last 24 hr 11/30/17 16:03: WBC 8.4, RBC 4.36 L, Hgb 13.0 L, Hct 40.6 L, MCV 93.1, MCH 29.8 , MCHC 32.0, RDW 14.0, Plt Count 222, MPV 7.9, Neut % (Auto) 78.2, Lymph % (Auto ) 11.3, [place] % (Auto) 6.5, Eos % (Auto) 3.7, Baso % (Auto) 0.4, Neut # (Auto) 6.5, Lymph # (Auto) 0.9, [place] # (Auto) 0.6, Eos # (Auto) 0.3, Baso # (Auto) 0.0 12/01/17 05:35: PT 22.8 H, INR 2.10 H Laboratory Tests 11/30/17 11/30/17 11/30/17 05:50 05:50 16:03 WBC 8.4 Hgb 13.0 L Hct 40.6 L INR 1.12 H Sodium 141 Potassium 4.2 Chloride 106 BUN 24 H D Creatinine 1.45 H 12/01/17 05:35 WBC Hgb Hct INR 2.10 H Sodium Potassium Chloride BUN Creatinine I & O for Last 24 hours: Intake & Output 11/28/17 11/29/17 11/30/17 12/01/17 11:59 11:59 11:59 11:59 Intake Total 992 / 992 1773 / 1773 2803 / 2803 Output Total 950 / 950 Balance 992 / 992 1773 / 1773 1853 / 1853 Weight 187 lb 2 oz 187 lb 2 oz - Constitutional no acute distress - *Routine HEENT Exam Eye: Present: PERRL ENT: Present: mucous membranes moist - Routine Chest/Breast/Axilla Exam Chest wall: Present: tenderness (Lessened) - *Routine Respiratory Exam Present: CTA bilaterally - *Routine Cardiovascular Exam Present: RRR, S4 - *Routine Abdominal Exam Present: soft. Absent: tenderness, organomegaly - *Routine Extremities Exam Absent: edema - *Routine Neurological Exam Present: alert, oriented X3 Assessment and Plan (1) Pulmonary embolism Current visit: Yes Status: Acute Category: Medical Code(s): I26.99 - Other pulmonary embolism without acute cor pulmonale (2) Chest pain Current visit: Yes Status: Acute Category: Medical Code(s): R07.9 - Chest pain, unspecified (3) Hypertensive urgency Current visit: Yes Status: Acute Category: Medical Code(s): I16.0 - Hypertensive urgency (4) Renal insufficiency Current visit: Yes Status: Acute Category: Medical Code(s): N28.9 - Disorder of kidney and ureter, unspecified (5) Hiatal hernia Current visit: Yes Status: Chronic Category: Medical Code(s): K44.9 - Diaphragmatic hernia without obstruction or gangrene
--- NOTE | 2017-12-01 11:41 | P.PN_ITS ---
Internal Medicine - PN: Subj *Date: 12/01/17 *Time: 11:39 Exam Vital signs and Labs for Last 24 Hours: Temp Pulse Resp BP Pulse Ox 97.4 F L 96 H 20 156/100 94 L 12/01/17 08:00 12/01/17 08:00 12/01/17 08:00 12/01/17 08:00 12/01/17 08:30 Laboratory Results - last 24 hr 11/30/17 16:03: WBC 8.4, RBC 4.36 L, Hgb 13.0 L, Hct 40.6 L, MCV 93.1, MCH 29.8 , MCHC 32.0, RDW 14.0, Plt Count 222, MPV 7.9, Neut % (Auto) 78.2, Lymph % (Auto ) 11.3, [place] % (Auto) 6.5, Eos % (Auto) 3.7, Baso % (Auto) 0.4, Neut # (Auto) 6.5, Lymph # (Auto) 0.9, [place] # (Auto) 0.6, Eos # (Auto) 0.3, Baso # (Auto) 0.0 12/01/17 05:35: PT 22.8 H, INR 2.10 H I & O for Last 24 hours: Intake & Output 11/28/17 11/29/17 11/30/17 12/01/17 23:59 23:59 23:59 23:59 Intake Total 384 / 384 1328 / 1328 1413 / 1413 2443 / 2443 Output Total 800 / 800 150 / 150 Balance 384 / 384 1328 / 1328 613 / 613 2293 / 2293 Weight 84.878 kg 84.878 kg 84.878 kg Assessment and Plan (1) Pulmonary embolism Current visit: Yes Status: Acute Category: Medical Code(s): I26.99 - Other pulmonary embolism without acute cor pulmonale (2) Chest pain Current visit: Yes Status: Acute Category: Medical Code(s): R07.9 - Chest pain, unspecified (3) Hypertensive urgency Current visit: Yes Status: Acute Category: Medical Code(s): I16.0 - Hypertensive urgency (4) Renal insufficiency Current visit: Yes Status: Acute Category: Medical Code(s): N28.9 - Disorder of kidney and ureter, unspecified (5) Hiatal hernia Current visit: Yes Status: Chronic Category: Medical Code(s): K44.9 - Diaphragmatic hernia without obstruction or gangrene The patient's infection will respond to the chosen ABx?: Yes Is the patient receiving the right drug, dose, and route?: Yes Could a more targeted ABx be ordered?: No
--- NOTE | 2017-12-01 17:09 | PC.NURSE ---
BLOOD PRESSURE ELEVATED AT THIS TIME. GIVING NIGHT DOSE OF METOPROLOL NOW. WILL RECHECK BP IN 45MINUTES. IF NO CHANGE WILL NOTIFY
[2017-12-01 17:26] LABS: PSA, Free 0.87 ng/mL; Prostate Specific Ag 3.3 ng/mL (0.0-4.0)
--- NOTE | 2017-12-01 18:01 | PC.NURSE ---
CALLED DR. TELLEZ TO REPORT INCREASE OF PATIENT BP OF 150'S OVER 108 AND THAT IT HAD BEEN HIGHER AT TIMES. ALSO TOLD MD THAT METOPROLOL WAS GIVEN AND MD ASKED ABOUT PATIENT BP MEDS. MD STATED TO GIVE PATIENT 10MG OF LISINOPRIL NOW AND TO CHANGE THE DAILY DOSE OF LISINOPRIL TO 20MG
--- NOTE | 2017-12-01 19:51 | PC.NURSE ---
SOME FAMILY CONCERNS WITH PATIENT APPEARING CONFUSED AT TIMES. STAFF HAS NOTICED SOME MILD CONFUSION AT TIMES, THAT PATIENT SEEMS TO CATCH SELF WHEN SAYING SOME THINGS. APPEARS THAT STRESS OF HOSPITAL STAY IS CAUSING SOME CONFUSION AT TIMES, AND HAS BEEN SEEN PULLLING AT CORDS AND SOME FORGETFULNESS. PASSED TO CLIENT CARE SPECIALIST NURSE THIS INFO TO STAY AWARE OF
--- NOTE | 2017-12-01 20:13 | PC.NURSE ---
nurse notifiied of pts elevated bp
--- NOTE | 2017-12-01 22:18 | PC.NURSE ---
[employer] MANAG[employer] TRAINEE PROGRAM STORES FOR ROSALINDA AT 2130. DR. TELLEZ RESPONDED TO PAGE AT 2136. NOTIFIED OF ELEVATED BP: 157/103 NOTED ON 1999 VITAL SIGN ROUND. MILD CONFUSION NOTED WELL ON ASSESSMENT. PT IS A&OX3 BUT MAKES INAPPROPRIATE STATEMENTS TO FAMILY AND STAFF. FOR EXAMPLE, PT HAS STATED LOOK AT ALL THAT WATER OUT THERE AND POINTS TO THE [address] WAY. STATING TO RT ARE YOU MY SNAPPER ON? NO WATER WAS NOTED IN [address]. ON ASSESSMENT, PERRLA NOTED, WOODWORKING CRAFTSMAN EQUAL BILAT, NO FACIAL DROOPING NOTED, FACE REMAINS SYMMETRICAL WITH SMILE. BP WAS OBTAINED AT 2129 AGAIN AND NOTED AT 157/97. OTHER VS NOTED WNL. PRN MORPHINE HAS NOT BEEN ADMINISTERED THIS SHIFT. ADDITIONAL BP MEDICATION WAS ADMINISTERED PER DAY SHIFT RN. DR. ETLLEZ ORDERED AMLODIPINE 2.5MG PO ONE TIME DOSE. THIS ORDER WAS VERIFIED WITH/ REPEATED BACK TO , CONFIRMED ORDER.
[2017-12-02] VITALS (11 sets, daily range): BP systolic 140–178; BP diastolic 76–110; PULSE 64–87; RESP 18–20; TEMP 36.6–36.9; O2SAT 91–96
--- NOTE | 2017-12-02 04:10 | PC.NURSE ---
nurse notifieed of pts bp
--- NOTE | 2017-12-02 05:58 | PC.NURSE ---
NO CHANGE SINCE LAST DOCUMENTED. ON REASSESSMENT PT REMAINED A&OX3 BUT INAPPROPIATE BEHAVIOR AND STATEMENTS ARE STILL BEING MADE. DRUG COORDINATOR HAVE REMAINED EQUAL AND PERRLA REMAINS. INCONTINENT EPISODES NOTED. PT WOKE UP IN MIDDLE OF NIGHT AND STATED HEY HONEY, LET'S GET OUT OF HERE. GIVE ME MY SHOES AND LET'S GO. SAFETY DEVICE WAS APPLIED WHILE WAS SLEEPING. WEANED OXYGEN FROM 3LNC TO 1LNC AND PT HAS TOLERATED WELL WITH O2SATS REMAINING >90%. NSR NOTED PER ROADING ENGINEER. VSS. WILL CONTINUE TO MONITOR.
[2017-12-02 06:29] LABS: INR 3.18 (0.9-1.1); Prothrombin Time 34.8 seconds (9.4-11.8)
--- NOTE | 2017-12-02 08:49 | HMH.ACPN2 ---
Internal Medicine - PN: Subj *Date: 12/02/17 *Time: 08:49 Interval history: Laboratory Tests 12/02/17 05:55 INR 3.18 H Patient Denies CP and SOB; stayed with him all night and states that he has been confused; eating OK Nurses say BP remains elevated Exam Vital signs and Labs for Last 24 Hours: Temp Pulse Resp BP Pulse Ox 98.2 F 79 20 178/97 91 L 12/02/17 04:00 12/02/17 06:15 12/02/17 04:00 12/02/17 04:00 12/02/17 06:15 Laboratory Results - last 24 hr 11/29/17 15:30: Prostate Specific Ag 3.3, Free PSA 0.87, % Free PSA 26.4 12/02/17 05:55: PT 34.8 H, INR 3.18 H I & O for Last 24 hours: Intake & Output 11/29/17 11/30/17 12/01/17 12/02/17 11:59 11:59 11:59 11:59 Intake Total 992 / 992 1773 / 1773 2803 / 2803 1934 / 1934 Output Total 950 / 950 200 / 200 Balance 992 / 992 1773 / 1773 1853 / 1853 1734 / 1734 Weight 187 lb 2 oz 187 lb 2 oz Microbiology Reports for the Last 24 Hours: Microbiology 11/29/17 20:40 Sputum - Expectorated Sputum Gram Stain - Final - *Routine Respiratory Exam Present: CTA bilaterally - *Routine Cardiovascular Exam Present: RRR - *Routine Abdominal Exam Present: soft, normoactive bowel sounds. Absent: tenderness - *Routine Extremities Exam Present: edema (trace bilaterally) Assessment and Plan (1) Pulmonary embolism Current visit: Yes Status: Acute Category: Medical Code(s): I26.99 - Other pulmonary embolism without acute cor pulmonale (2) Chest pain Current visit: Yes Status: Acute Category: Medical Code(s): R07.9 - Chest pain, unspecified (3) Hypertensive urgency Current visit: Yes Status: Acute Category: Medical Code(s): I16.0 - Hypertensive urgency (4) Renal insufficiency Current visit: Yes Status: Acute Category: Medical Code(s): N28.9 - Disorder of kidney and ureter, unspecified (5) Hiatal hernia Current visit: Yes Status: Chronic Category: Medical Code(s): K44.9 - Diaphragmatic hernia without obstruction or gangrene (6) Confusion Current visit: Yes Status: Acute Category: Medical Code(s): R41.0 - Disorientation, unspecified - Assessment and plan all Dx Assessment and Plan for all problems:: will add Amlodipine qd
[2017-12-02 09:17] LABS: Basophils % 0.4 % (0.1-2.0); Eosinophils # 0.5 K/mm3 (0.0-0.4); Eosinophils % 9.3 % (0.1-12.0); Hematocrit 41.8 % (42.0-52.0); Hemoglobin 13.6 g/dL (14.1-18.0); Lymphocytes # 0.6 K/mm3 (0.7-4.5); Lymphocytes % 11.8 K/mm3 (10-50); Mean Corpuscular HGB Conc 32.6 g/dL (31.8-35.4); Mean Corpuscular Hemoglobin 29.1 pg (27.0-31.2); Mean Corpuscular Volume 89.3 fl (80-94); Mean Platelet Volume 7.7 fl (7.4-10.4); Monocytes # 0.3 K/mm3 (0.1-1.0); Monocytes % 6.2 % (1.7-9.3); Neutrophils # 3.9 K/mm3 (1.8-7.8); Neutrophils % 72.4 % (37.0-80.0); Platelet Count 247 K/mm3 (142-424); Red Blood Count 4.68 M/mm3 (4.60-6.20); Red Cell Distribution Width 13.8 % (11.5-17.5); White Blood Count 5.4 K/mm3 (4.8-10.8)
[2017-12-02 09:28] LABS: Alanine Aminotransferase 35 U/L (12-78); Albumin/Globulin Ratio 0.7 (1.1-1.8); Alkaline Phosphatase 59 U/L (46-116); Anion Gap 8.7 mEq/L (5-15); Aspartate Amino Transferase 33 U/L (15-37); Bilirubin,Total 0.3 mg/dL (0.2-1.0); Blood Urea Nitrogen 21 mg/dL (7-18); Calcium 9.6 mg/dL (8.5-10.1); Carbon Dioxide 30 mmol/L (21.0-32.0); Chloride 103 mmol/L (98-107); Creatinine Clearance Estimated 58 mL/min (0-300); Creatinine,Serum 1.37 mg/dL (0.70-1.30); Estimated Glomerular Filt Rate 51 ml/min (>60); GFR (African American) 62 ML/MIN (>60); Globulin 4.2 gm/dl (1.3-3.2); Glucose 115 mg/dL (74-106); Potassium 3.7 mmoL/L (3.5-5.1); Sodium 138 mmol/L (136-145); Total Protein,Serum 7.2 gm/dL (6.4-8.2)
--- NOTE | 2017-12-02 09:38 | XR_ITS ---
XR chest 2V HISTORY: Follow-up pneumonia ITS.REASON: PE, pneumonia ORDERING PHYSICIAN: Neville Dye MD PATIENT AGE: 72 years COMPARISON: 2-18 FINDINGS: Borderline cardiomegaly without failure. Moderate-sized hiatal hernia once again noted. There remains consolidation within the lingula not significant change. There is a small left pleural effusion. Degenerative changes are present in the shoulders and thoracic spine. IMPRESSION: 1. No change lingular infiltrate with small effusion. 2. Hiatal hernia.
[2017-12-02 15:18] LABS: PTT-LA 32.2 sec (0.0-51.9); Protein C Functional 84 % (73-180)
[2017-12-03] VITALS: BP 147/97; PULSE 70; PULSE 76; RESP 20; TEMP 36.3; O2SAT 93
--- NOTE | 2017-12-03 00:49 | PC.NURSE ---
AT 2255 DR. WALTERS NOTIFIED OF BP ELEVATED AT 1999 VITAL SIGN ROUND. OBTAINED BP AGAIN AT 2235. BP NOTED 167/97. DR. TELLEZ HAD ADDED AMLODIPINE ONCE A DAY TO PT'S MEDICATIONS. METOPROLOL, AMLODIPINE, LISINOPRIL, AND HCTZ ADMINISTERED ON DAY SHIFT BUT NO MEDICATIONS AVAILABLE FOR ADMINISTRATION ON FRONT SERVICES AGENT. ORDERED: ONE TIME DOSE OF 0.1 MG PO CLONIDINE CLONIDINE ADMINISTERED PER DEC.
--- NOTE | 2017-12-03 03:35 | PC.NURSE ---
NO COMPLAINTS STATED. PT STATED I FEEL GREAT. LUNG SOUNDS CLEAR BUT DIMINISHED IN BASES. TOLERATED RA WELL. NO CONFUSION NOTED THIS SHIFT. NSR NOTED PER YARDER BOSS. VSS. WILL CONTINUE TO MONITOR.
[2017-12-03 04:00] VITALS: BP 149/95; PULSE 68; PULSE 70; RESP 20; TEMP 36.5; O2SAT 92
[2017-12-03 05:57] VITALS: PULSE 71; O2SAT 91
[2017-12-03 05:59] VITALS: PULSE 66
[2017-12-03 06:22] LABS: Protein S Antigen, Total 91 % (60-150); Protein S Functional 85 % (63-140)
[2017-12-03 06:23] LABS: Lupus Reflex Interpretation Comment: (.)
[2017-12-03 07:05] LABS: INR 2.49 (0.9-1.1); Prothrombin Time 27.2 seconds (9.4-11.8)
[2017-12-03 08:00] VITALS: BP 123/84; PULSE 79; RESP 20; TEMP 36.4; O2SAT 93
--- NOTE | 2017-12-03 08:35 | HMH.ACPN2 ---
Internal Medicine - PN: Subj *Date: 12/03/17 *Time: 08:35 Interval history: Feels much better today; slept well last night; eating without problems; bowels are moving; he is voiding QS; he denies chest pain and shortness of breath; has been ambulating in the room without difficulty and shortness of breath states that both she and her slept well last night: She has noted no confusion; nursing documentation indicates no confusion. Exam Vital signs and Labs for Last 24 Hours: Temp Pulse Resp BP Pulse Ox 97.5 F L 79 20 123/84 93 L 12/03/17 08:00 12/03/17 08:00 12/03/17 08:00 12/03/17 08:00 12/03/17 08:00 Laboratory Results - last 24 hr 11/29/17 19:36: Functional Protein C 84, Protein S Antigen 91, Functional Protein S 85 11/29/17 19:36: LA PTT Screen 32.2, Dil Cliff Viper Venom 47.7 H, Lupus Anticoag Interp Comment: 12/02/17 09:05: Sodium 138, Potassium 3.7, Chloride 103, Carbon Dioxide 30, Anion Gap 8.7, BUN 21 H, Creatinine 1.37 H, Estimated Creat Clear 58, Estimated GFR 51 L, Est GFR ( Amer) 62, Glucose 115 H, Calcium 9.6, Total Bilirubin 0.3, AST 33 D, ALT 35 D, Alkaline Phosphatase 59, Total Protein 7.2, Albumin 3.0 L, Globulin 4.2 H, Albumin/Globulin Ratio 0.7 L 12/02/17 09:05: WBC 5.4 D, RBC 4.68, Hgb 13.6 L, Hct 41.8 L, MCV 89.3, MCH 29.1, MCHC 32.6, RDW 13.8, Plt Count 247, MPV 7.7, Neut % (Auto) 72.4, Lymph % (Auto) 11.8, [place] % (Auto) 6.2, Eos % (Auto) 9.3, Baso % (Auto) 0.4, Neut # (Auto) 3.9, Lymph # (Auto) 0.6 L, [place] # (Auto) 0.3, Eos # (Auto) 0.5 H, Baso # (Auto) 0.0 12/03/17 06:05: PT 27.2 H, INR 2.49 H 12/03/17 06:05: PT 27.2 H, INR 2.49 H I & O for Last 24 hours: Intake & Output 11/30/17 12/01/17 12/02/17 12/03/17 11:59 11:59 11:59 11:59 Intake Total 1773 / 1773 2803 / 2803 2174 / 2174 960 / 960 Output Total 950 / 950 200 / 200 100 / 100 Balance 1773 / 1773 1853 / 1853 1973 / 1973 860 / 860 Weight 187 lb 2 oz Microbiology Reports for the Last 24 Hours: Microbiology 11/29/17 20:40 Sputum - Expectorated Sputum Gram Stain - Final 11/29/17 20:40 Sputum - Expectorated Sputum Sputum Culture - Final Normal Respiratory [facility] Reports for the Last 24 Hours: 11/28/17 CTA of chest IMPRESSION: 1. Positive for bilateral pulmonary emboli 2. Consolidation within the lingula system with pneumonia. 3. Indeterminate 1 cm nodule in the left upper lobe. Neoplasm or noncalcified granuloma is considered. PET CT follow-up recommended when patient can tolerate. 4. Large hiatal hernia 12/02/17 CXR IMPRESSION: 1. No change lingular infiltrate with small effusion. 2. Hiatal hernia. 12/01/17 CT of abdomen and pelvis IMPRESSION: 1. Large hiatal hernia. 2. Small left effusion with bibasilar atelectasis and/or infiltrate 3. No acute abdominal or pelvic findings. 4. Soft tissue density right inguinal region similar to the previous exam and could be related to postsurgical change with scarring from prior hernia repair. Adenopathy is also a consideration. Small left inguinal hernia 4. Mildly enlarged prostate 5. No evidence of abdominal or pelvic metastasis - Constitutional no acute distress Comments: Awake and sitting up in the bed talking with his - *Routine Respiratory Exam Absent: accessory muscle use Comments: Review right basilar crackles - *Routine Cardiovascular Exam Present: RRR - *Routine Abdominal Exam Present: soft, normoactive bowel sounds. Absent: tenderness - *Routine Extremities Exam Present: full ROM. Absent: edema - *Routine Neurological Exam Present: alert, oriented X3 Assessment and Plan (1) Pulmonary embolism Current visit: Yes Status: Acute Category: Medical Code(s): I26.99 - Other pulmonary embolism without acute cor pulmonale (2) Chest pain Current visit: Yes Status: Acute Category: Medical Code(s): R07.9 - Chest pain, unspecified (3) Hypertensi
--- NOTE | 2017-12-03 08:39 | P.PN_ITS ---
Internal Medicine - PN: Subj *Date: 12/03/17 *Time: 08:35 Interval history: Feels much better today; slept well last night; eating without problems; bowels are moving; he is voiding QS; he denies chest pain and shortness of breath; has been ambulating in the room without difficulty and shortness of breath states that both she and her slept well last night: She has noted no confusion; nursing documentation indicates no confusion. Exam Vital signs and Labs for Last 24 Hours: Temp Pulse Resp BP Pulse Ox 97.5 F L 79 20 123/84 93 L 12/03/17 08:00 12/03/17 08:00 12/03/17 08:00 12/03/17 08:00 12/03/17 08:00 Laboratory Results - last 24 hr 11/29/17 19:36: Functional Protein C 84, Protein S Antigen 91, Functional Protein S 85 11/29/17 19:36: LA PTT Screen 32.2, Dil Cliff Viper Venom 47.7 H, Lupus Anticoag Interp Comment: 12/02/17 09:05: Sodium 138, Potassium 3.7, Chloride 103, Carbon Dioxide 30, Anion Gap 8.7, BUN 21 H, Creatinine 1.37 H, Estimated Creat Clear 58, Estimated GFR 51 L, Est GFR ( Amer) 62, Glucose 115 H, Calcium 9.6, Total Bilirubin 0.3, AST 33 D, ALT 35 D, Alkaline Phosphatase 59, Total Protein 7.2 , Albumin 3.0 L, Globulin 4.2 H, Albumin/Globulin Ratio 0.7 L 12/02/17 09:05: WBC 5.4 D, RBC 4.68, Hgb 13.6 L, Hct 41.8 L, MCV 89.3, MCH 29.1 , MCHC 32.6, RDW 13.8, Plt Count 247, MPV 7.7, Neut % (Auto) 72.4, Lymph % (Auto ) 11.8, [place] % (Auto) 6.2, Eos % (Auto) 9.3, Baso % (Auto) 0.4, Neut # (Auto) 3.9, Lymph # (Auto) 0.6 L, [place] # (Auto) 0.3, Eos # (Auto) 0.5 H, Baso # (Auto) 0.0 12/03/17 06:05: PT 27.2 H, INR 2.49 H 12/03/17 06:05: PT 27.2 H, INR 2.49 H I & O for Last 24 hours: Intake & Output 11/30/17 12/01/17 12/02/17 12/03/17 11:59 11:59 11:59 11:59 Intake Total 1773 / 1773 2803 / 2803 2174 / 2174 960 / 960 Output Total 950 / 950 200 / 200 100 / 100 Balance 1773 / 1773 1853 / 1853 1973 / 1973 860 / 860 Weight 187 lb 2 oz Microbiology Reports for the Last 24 Hours: Microbiology 11/29/17 20:40 Sputum - Expectorated Sputum Gram Stain - Final 11/29/17 20:40 Sputum - Expectorated Sputum Sputum Culture - Final Normal Res[facility] Reports for the Last 24 Hours: 11/28/17 CTA of chest IMPRESSION: 1. Positive for bilateral pulmonary emboli 2. Consolidation within the lingula system with pneumonia. 3. Indeterminate 1 cm nodule in the left upper lobe. Neoplasm or noncalcified granuloma is considered. PET CT follow-up recommended when patient can tolerate. 4. Large hiatal hernia 12/02/17 CXR IMPRESSION: 1. No change lingular infiltrate with small effusion. 2. Hiatal hernia. 12/01/17 CT of abdomen and pelvis IMPRESSION: 1. Large hiatal hernia. 2. Small left effusion with bibasilar atelectasis and/or infiltrate 3. No acute abdominal or pelvic findings. 4. Soft tissue density right inguinal region similar to the previous exam and could be related to postsurgical change with scarring from prior hernia repair. Adenopathy is also a consideration. Small left inguinal hernia 4. Mildly enlarged prostate 5. No evidence of abdominal or pelvic metastasis - Constitutional no acute distress Comments: Awake and sitting up in the bed talking with his - *Routine Respiratory Exam Absent: accessory muscle use Comments: Review right basilar crackles - *Routine Cardiovascular Exam Present: RRR - *
[2017-12-03 11:41] VITALS: BP 122/80; PULSE 64; RESP 20; O2SAT 97
--- NOTE | 2017-12-03 13:32 | PC.NURSE ---
was paged at 1300 about pt discharge, awaiting return call.
--- NOTE | 2017-12-04 08:12 | HMH.DCSUM ---
General - General Admission date: 11/28/17 Discharge date: 12/03/17 HPI HPI: Mr. Gallardo is a 72 year old white male with a history of hypertension and MS. 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 He then woke up at 0800 am with left-sided chest pain and SOA. He describes the pain as dull and it increases with deep breathing, cough and upper extremities movement. He denies having fever, chills, or productive sputum. He denies any radiation. He denies palpitations and nausea. He denies hematemesis, coffee-ground emesis, or bleeding per rectum. His blood pressure was 180/100 in the ER. He was evaluated and a CTA showed a PE. He was admitted. Objective Vital signs: Temp Pulse Resp BP Pulse Ox 97.5 F L 64 20 122/80 97 12/03/17 08:00 12/03/17 11:41 12/03/17 11:41 12/03/17 11:41 12/03/17 11:41 Narrative: - Constitutional no acute distress - *Routine HEENT Exam Head: Present: normocephalic, atraumatic Eye: Present: EOMI, PERRL ENT: Present: mucous membranes moist - *Routine Neck Exam Present: supple, full ROM - *Routine Respiratory Exam Present: CTA bilaterally - *Routine Cardiovascular Exam Present: RRR - *Routine Abdominal Exam Present: soft, normoactive bowel sounds. Absent: tenderness - *Routine Extremities Exam Absent: edema - *Routine Skin Exam Present: intact - *Routine Neurological Exam Present: alert, oriented X3 Hospital Course Hospital Course: The patient was started on lovenox for his PE. CXR showed a possible pneumonia, therefore he was started on abx as well. His lower extremity dopplers showed no DVT. He was started on coumadin. His CP resolved, but then he began having abdominal pain. A CT was ordered but showed nothing acute. He was adequately anticoagulated on Coumadin. There is 1 lupus study (viper venom)that is very slightly elevated. On repeat chest x-ray he still had a lingular infiltrate which Dr. Dye felt was connected with the pulmonary emboli more than an infectious process. He was, however discharged on Cefdinir as well as 5 mg of Coumadin daily. He will be seen back in the office soon for recheck of his INR. DS: Diagnosis - Discharge Diagnosis (1) Pulmonary embolism Status: Acute (2) Chest pain Status: Acute (3) Hypertensive urgency Status: Acute (4) Renal insufficiency Status: Acute (5) Hiatal hernia Status: Chronic Meds Home Medications Medication Instructions Recorded Confirmed Type Aspirin [Aspir 81] 81 mg PO DAILY 11/28/17 11/28/17 History Atorvastatin Calcium [Atorvastatin 80 mg PO HS 11/28/17 11/29/17 History 80mg Tab] B12/Levomefolate Calcium/B-6 1 each PO DAILY 11/28/17 11/28/17 History [Folbic Rf Tablet] Citalopram Hydrobromide [Celexa 20 mg PO DAILY 11/28/17 11/28/17 History 20mg Tablet] Ergocalciferol (Vitamin D2) 400 unit PO DAILY 11/28/17 11/28/17 History [Vitamin D] Fenofibrate Nanocrystallized 145 mg PO DAILY 11/28/17 11/28/17 History [Fenofibrate] Lisinopril [Lisinopril 10mg Tab] 10 mg PO DAILY 11/28/17 11/28/17 History Metoprolol Tartrate [Lopressor 100 mg PO DAILY 11/28/17 11/28/17 History 100mg Tablet] Metoprolol Tartrate [Lopressor 50 mg PO PM 11/28/17 11/28/17 History 50mg tablet] Mirabegron [Myrbetriq] 25 mg PO DAILY 11/28/17 11/28/17 History Niacin [Slo-Niacin] 250 mg PO HS 11/28/17 11/29/17 History Potassium Chloride [K-Tab ER 20 20 meq PO DAILY 11/28/17 11/28/17 History mEq] Temazepam [Restoril] 15 mg PO HS 11/28/17 11/29/17 History hydroCHLOROthiazide 12.5 mg PO QODHS 11/28/17 11/29/17 History [Hydrochlorothiazide 12.5mg Tab] Nitroglycerin 0.4 mg PO Q5MINP PRN 11/29/17 11/29/17 History Allergies Allergy/AdvReac Type Severity Reaction Status Date / Time No Known Allergies Allergy Verified 11/28/17 11:26 Discharge Plan - Patient Discharge Instructions ACTIVITY: Limited activi
--- NOTE | 2017-12-04 08:19 | P.DS_ITS ---
General - General Admission date: 11/28/17 Discharge date: 12/03/17 HPI HPI: Mr. Gallardo is a 72 year old white male with a history of hypertension and AL. 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 He then woke up at 0800 am with left-sided chest pain and SOA. He describes the pain as dull and it increases with deep breathing, cough and upper extremities movement. He denies having fever, chills, or productive sputum. He denies any radiation. He denies palpitations and nausea. He denies hematemesis, coffee-ground emesis , or bleeding per rectum. His blood pressure was 180/100 in the ER. He was evaluated and a CTA showed a PE. He was admitted. Objective Vital signs: Temp Pulse Resp BP Pulse Ox 97.5 F L 64 20 122/80 97 12/03/17 08:00 12/03/17 11:41 12/03/17 11:41 12/03/17 11:41 12/03/17 11:41 Narrative: - Constitutional no acute distress - *Routine HEENT Exam Head: Present: normocephalic, atraumatic Eye: Present: EOMI, PERRL ENT: Present: mucous membranes moist - *Routine Neck Exam Present: supple, full ROM - *Routine Respiratory Exam Present: CTA bilaterally - *Routine Cardiovascular Exam Present: RRR - *Routine Abdominal Exam Present: soft, normoactive bowel sounds. Absent: tenderness - *Routine Extremities Exam Absent: edema - *Routine Skin Exam Present: intact - *Routine Neurological Exam Present: alert, oriented X3 Hospital Course Hospital Course: The patient was started on lovenox for his PE. CXR showed a possible pneumonia , therefore he was started on abx as well. His lower extremity dopplers showed no DVT. He was started on coumadin. His CP resolved, but then he began having abdominal pain. A CT was ordered but showed nothing acute. He was adequately anticoagulated on Coumadin. There is 1 lupus study (viper venom)that is very slightly elevated. On repeat chest x-ray he still had a lingular infiltrate which Dr. Dye felt was connected with the pulmonary emboli more than an infectious process. He was, however discharged on Cefdinir as well as 5 mg of Coumadin daily. He will be seen back in the office soon for recheck of his INR. DS: Diagnosis - Discharge Diagnosis (1) Pulmonary embolism Status: Acute (2) Chest pain Status: Acute (3) Hypertensive urgency Status: Acute (4) Renal insufficiency Status: Acute (5) Hiatal hernia Status: Chronic Meds Home Medications Medication Instructions Recorded Confirmed Type Aspirin [Aspir 81] 81 mg PO DAILY 11/28/17 11/28/17 History Atorvastatin Calcium [Atorvastatin 80 mg PO HS 11/28/17 11/29/17 History 80mg Tab] B12/Levomefolate Calcium/B-6 1 each PO DAILY 11/28/17 11/28/17 History [Folbic Rf Tablet] Citalopram Hydrobromide [Celexa 20 mg PO DAILY 11/28/17 11/28/17 History 20mg Tablet] Ergocalciferol (Vitamin D2) 400 unit PO DAILY 11/28/17 11/28/17 History [Vitamin D] Fenofibrate Nanocrystallized 145 mg PO DAILY 11/28/17 11/28/17 History [Fenofibrate] Lisinopril [Lisinopril 10mg Tab] 10 mg PO DAILY 11/28/17 11/28/17 History Metoprolol Tartrate [Lopressor 100 mg PO DAILY 11/28/17 11/28/17 History 100mg Tablet] Metoprolol Tartrate [Lopressor 50 mg PO PM 11/28/17 11/28/17 History 50mg tablet] Mirabegron [Myrbetriq] 25 mg PO DAILY 11/28/17 11/28/17
[2017-12-04 18:16] LABS: Protein C Antigen 61 % (60-150)
[2017-12-04 18:18] LABS: PSA, Free 1.76 ng/mL; Prostate Specific Ag 8.5 ng/mL (0.0-4.0)
[2017-12-06 17:02] LABS: dRVVT 47.7 sec (0.0-47.0); dRVVT Mix 40.4 sec (0.0-47.0)
== END 2017-12-03 13:48 | disposition home or self-care (01) | DRG 176 ==
LOC: ER 13:53 → 2ND 11-29 10:25
PROVIDERS: Admitting Provider Family Medicine; Emergency Provider Emergency Medicine; Family Provider Family Medicine; PCP Family Medicine; Visit Provider Family Medicine
DX: I26.99 Other pulmonary embolism without acute cor pulmonale (principal); I42.9 Cardiomyopathy, unspecified; I16.0 Hypertensive urgency; N28.9 Disorder of kidney and ureter, unspecified; K44.9 Diaphragmatic hernia without obstruction or gangrene; K59.00 Constipation, unspecified; R41.0 Disorientation, unspecified; I10 Essential (primary) hypertension; I25.2 Old myocardial infarction; Z82.49 Family history of ischemic heart disease and other diseases of the circulatory system; Z83.3 Family history of diabetes mellitus; Z79.82 Long term (current) use of aspirin; Z79.899 Other long term (current) drug therapy
CPT/HCPCS: 36415; 71045; 71046; 71275; 74177; 80053; 81241; 82550; 82553; 82803; 83880; 84153; 84154; 84484; 85025; 85302; 85305; 85378; 85610; 85613; 87070; 87205; 93005; 93041; 93970; 94640; 94760; 94761; 96365; 99283; J2270; Q9967

== ENCOUNTER → 2018-03-19 15:28 | Outpatient (CLI) | payer MEDICARE, MEDICAID, SELFPAY ==
[2018-03-19 15:30] LABS: Microscopic, Urine URINE MICROSCOPIC (MICROSCOPIC)
[2018-03-19 15:43] LABS: Basophils % 0.8 % (0.1-2.0); Eosinophils # 0.4 K/mm3 (0.0-0.4); Eosinophils % 7.2 % (0.1-12.0); Hematocrit 43.5 % (42.0-52.0); Hemoglobin 14.6 g/dL (14.1-18.0); Lymphocytes # 1.3 K/mm3 (0.7-4.5); Mean Corpuscular HGB Conc 33.5 g/dL (31.8-35.4); Mean Corpuscular Hemoglobin 29.9 pg (27.0-31.2); Mean Corpuscular Volume 89.3 fl (80-94); Mean Platelet Volume 8.2 fl (7.4-10.4); Monocytes # 0.3 K/mm3 (0.1-1.0); Neutrophils # 2.8 K/mm3 (1.8-7.8); Platelet Count 213 K/mm3 (142-424); Red Blood Count 4.87 M/mm3 (4.60-6.20); Red Cell Distribution Width 16.3 % (11.5-17.5); White Blood Count 4.8 K/mm3 (4.8-10.8)
[2018-03-19 16:02] LABS: Appearance,Urine CLEAR (Clear); Bilirubin,Urine Negative (Negative); Blood, Urine Negative (Negative); Color,Urine YELLOW (Yellow); Glucose,Urine (UA) Negative (Negative); Ketones,Urine Negative (Negative); Leukocyte Esterase,Urine Negative (Negative); Nitrate,Urine Negative (Negative); PH,Urine 5.5 (5.0-8.5); Protein,Urine Negative (Negative); Specific Gravity, Urine >= 1.030 (1.005-1.030); Urobilinogen,Urine 0.2 EU/dl (0.2)
[2018-03-19 16:21] LABS: RBC,Urine Occasional #/hpf (0-3); WBC,Urine Occasional #/hpf (0-3)
[2018-03-19 16:22] LABS: Bacteria,Urine 1+ /lpf; Hyaline Casts,Urine Occasional #/lpf (0); Mucus,Urine 2+ /lpf; Squamous Epithelial Cell,Urine Occasional #/hpf (0-5)
[2018-03-19 21:27] LABS: Alanine Aminotransferase 38 U/L (12-78); Albumin Level 3.7 gm/dL (3.4-5.0); Albumin/Globulin Ratio 1.2 (1.1-1.8); Alkaline Phosphatase 56 U/L (46-116); Anion Gap 11.2 mEq/L (5-15); Aspartate Amino Transferase 16 U/L (15-37); Bilirubin,Total 0.3 mg/dL (0.2-1.0); Blood Urea Nitrogen 22 mg/dL (7-18); Calcium 9.5 mg/dL (8.5-10.1); Carbon Dioxide 27 mmol/L (21.0-32.0); Chloride 111 mmol/L (98-107); Creatinine,Serum 1.64 mg/dL (0.70-1.30); Estimated Glomerular Filt Rate 41 ml/min (>60); GFR (African American) 50 ML/MIN (>60); Globulin 3.1 gm/dl (1.3-3.2); Glucose 93 mg/dL (74-106); Potassium 4.2 mmoL/L (3.5-5.1); Sodium 145 mmol/L (136-145); Total Protein,Serum 6.8 gm/dL (6.4-8.2)
== END ==
PROVIDERS: Visit Provider Physician Assistant
DX: N18.9 Chronic kidney disease, unspecified (principal); I10 Essential (primary) hypertension; Z79.01 Long term (current) use of anticoagulants; Z51.81 Encounter for therapeutic drug level monitoring
CPT/HCPCS: 36415; 80053; 81001; 85025

== ENCOUNTER 2019-01-05 22:00 | Observation (INO) ==
[2019-01-05 22:21] LABS: Basophils # 0.1 K/mm3 (0-0.2); Basophils % 0.9 % (0.1-2.0); Eosinophils # 0.4 K/mm3 (0.0-0.4); Eosinophils % 7.6 % (0.1-12.0); Hematocrit 46.5 % (42.0-52.0); Hemoglobin 15.3 g/dL (14.1-18.0); Lymphocytes # 1.6 K/mm3 (0.7-4.5); Lymphocytes % 27.2 % (10-50); Mean Corpuscular Hemoglobin 30.7 pg (27.0-31.2); Mean Corpuscular Volume 93.1 fl (80-94); Mean Platelet Volume 7.7 fl (7.4-10.4); Monocytes # 0.5 K/mm3 (0.1-1.0); Monocytes % 7.9 % (1.7-9.3); Neutrophils # 3.2 K/mm3 (1.8-7.8); Neutrophils % 56.5 % (37.0-80.0); Platelet Count 228 K/mm3 (142-424); Red Cell Distribution Width 15.3 % (11.5-17.5); White Blood Count 5.7 K/mm3 (4.8-10.8)
[2019-01-05 22:24] LABS: INR 1.77 (0.9-1.1); Prothrombin Time 17.9 seconds (9.4-11.8)
[2019-01-05 22:30] LABS: Anion Gap 14.5 mEq/L (5-15); Blood Urea Nitrogen 20 mg/dL (7-18); Calcium 9.5 mg/dL (8.5-10.1); Carbon Dioxide 25 mmol/L (21.0-32.0); Chloride 109 mmol/L (98-107); Glucose 135 mg/dL (74-106); Potassium 3.5 mmoL/L (3.5-5.1); Sodium 145 mmol/L (136-145)
--- NOTE | 2019-01-06 00:30 | Emergency Department Note ---
ED Disposition Clinical Impression: Renal insufficiency, Hiatal hernia Chest pain Qualifiers: Chest pain type: precordial pain Qualified Code(s): R07.2 - Precordial pain Pulmonary embolism Qualifiers: Pulmonary embolism type: unspecified Chronicity: chronic Acute cor pulmonale presence: without acute cor pulmonale Qualified Code(s): I27.82 - Chronic pulmonary embolism Disposition: Admitted as Observation Condition on Discharge: Good Referrals: Neville Dye MD [Primary Care Provider] - - Critical Care Critical Care Time: No Attestation: On 01/05/19, the high probability of a clinically significant, sudden or life threatening deterioration of the following system(s) required my full and direct attention, intervention and personal management. The time I documented below is in addition to time spent performing reported procedures but includes the following listed in this critical care notation. Medical Decision Making - Medical Records Medical records reviewed: Yes: I reviewed the patient's medical records. - Santino Inquiry Pt receiving controlled substance: No Vital Signs: 01/05/19 22:01 01/05/19 23:08 01/06/19 00:03 Temperature 98.3 F Temperature Source Oral Pulse Rate [Right Radial] 82 68 63 Respiratory Rate 16 18 18 Blood Pressure [Right Arm] 165/111 H 151/104 H 140/77 Blood Pressure Mean [Right Arm] 129 119 98 Blood Pressure Source [Right Arm] Automatic Cuff Automatic Cuff Blood Pressure Position [Right Arm] Supine Sitting 02 Sat by Pulse Oximetry 100 100 96 Oxygen Delivery Method Room Air Room Air - Lab Data Lab results reviewed: Yes: I reviewed the patient's lab results. Lab Results 01/05/19 22:05: WBC 5.7, RBC 5.00, Hgb 15.3, Hct 46.5, MCV 93.1, MCH 30.7, MCHC 33.0, RDW 15.3, Plt Count 228, MPV 7.7, Neut % (Auto) 56.5, Lymph % (Auto) 27.2, [place] % (Auto) 7.9, Eos % (Auto) 7.6, Baso % (Auto) 0.9, Neut # (Auto) 3.2, Lymph # (Auto) 1.6, [place] # (Auto) 0.5, Eos # (Auto) 0.4, Baso # (Auto) 0.1 01/05/19 22:05: Sodium 145, Potassium 3.5, Chloride 109 H, Carbon Dioxide 25, Anion Gap 14.5, BUN 20 H, Creatinine 1.57 H, Estimated Creat Clear 53, Estimated GFR 43 L, Est GFR ( Amer) 53 L, Glucose 135 H, Calcium 9.5, Troponin I < 0.02 01/05/19 22:05: PT 17.9 H, INR 1.77 H Result diagrams: 01/05/19 22:05 01/05/19 22:05 Orders (Tests/Meds): ED MEDICATIONS Generic Name Dose Route Start Last Admin Trade Name Freq PRN Reason Stop Dose Admin Sodium Chloride 10 ml 01/05/19 22:08 Saline Flush 10ml Syringe IV 02/04/19 22:07 NEEDED PRN Maintain IV Site Discontinued Medications Generic Name Dose Route Start Last Admin Trade Name Freq PRN Reason Stop Dose Admin Aspirin 324 mg 01/05/19 22:08 01/05/19 22:25 Aspirin 81mg Chewable Tablet PO 01/05/19 22:09 324 mg ONCE ONE Administration Enoxaparin Sodium 90 mg 01/06/19 00:41 Lovenox 100mg/Ml Syringe SQ 01/06/19 00:42 ONCE ONE ORDERS Category Date Time Status XR chest 2V Stat Exams 01/05/19 22:07 Taken - Radiology Data #1 Image(s): Chest Image Reviewed: Yes I reviewed the patient's radiology image Preliminary Findings: Abnormal (hiatial hernia ) - ECG Data Tracing #1 Normal Sinus Rhythm: Yes Ischemic changes: non-specific ST-T wave changes ECG compared to prior tracings: there are no significant changes - Physician Consults Physician Consulted: efrain Reason -: Admission Chest Pain HPI - General Chief Complaint: Chest Pain Stated Complaint: chest pain Time Seen by Provider: 01/05/19 22:15 Mode of Arrival: Family Vehicle Source of Information: Patient, Spouse, Medical Record Limitations: No Limitations Description of Symptoms (Recalled from ER Triage Doc. by RN): pt states he took his bp twice at home and it was elevated to 200 systolic. pt states he began having pain across the top of his chest on the way to ed but pain has resolved at this time. - History of Present Illness HPI narrative: pt with 20 min episode of ant chest pain which is now resolved - pt with hx of cad and htn with recent admit for pul emboli on coumadin complaint: chest pain indicative of cardiac Onset (ago): hour(s) Duration: now resolved Activity at onset: during rest Pain location: substernal Severity: moderate Relieving factors: nothing Risk Factors for CAD: Hypertension, Hypercholesterolemia, Family Hx of CAD Treatments prior to or on arrival for Cardiac Chest Pain: aspirin - CHETAN Score for Non-Stemi Age of Patient: 70-79 years old Heart Rate: 70-89 bpm Systolic Blood Pressure: 160-199 mmHg Serum Creatinine: 1.20-1.59 mg/dl CHF [place] Class: I-No CHF Other Risk Factors: None Non-Stemi Risk Score: 104 - Related Data Prior Cardiac Testing/Procedures: Stenting Home Medications Medication Instructions Recorded Confirmed Aspirin [Aspir 81] 81 mg PO DAILY 11/28/17 01/05/19 Atorvastatin Calcium [Atorvastatin 80 mg PO HS 11/28/17 01/05/19 80mg Tab] B12/Levomefolate Calcium/B-6 1 each PO DAILY 11/28/17 01/05/19 [Folbic Rf Tablet] Citalopram Hydrobromide [Celexa 20 mg PO DAILY 11/28/17 01/05/19 20mg Tablet] Ergocalciferol (Vitamin D2) 400 unit PO DAILY 11/28/17 01/05/19 [Vitamin D] Fenofibrate Nanocrystallized 145 mg PO DAILY 11/28/17 01/05/19 [Fenofibrate] Lisinopril [Lisinopril 10mg Tab] 10 mg PO DAILY 11/28/17 01/05/19 Metoprolol Tartrate [Lopressor 100 mg PO DAILY 11/28/17 01/05/19 100mg Tablet] Metoprolol Tartrate [Lopressor 50 mg PO PM 11/28/17 01/05/19 50mg tablet] Mirabegron [Myrbetriq] 25 mg PO DAILY 11/28/17 01/05/19 Niacin [Slo-Niacin] 250 mg PO HS 11/28/17 01/05/19 Potassium Chloride [K-Tab ER 20 20 meq PO DAILY 11/28/17 01/05/19 mEq] Temazepam [Restoril] 15 mg PO HS 11/28/17 01/05/19 hydroCHLOROthiazide 12.5 mg PO QODHS 11/28/17 01/05/19 [Hydrochlorothiazide 12.5mg Tab] Nitroglycerin 0.4 mg PO Q5MINP PRN 11/29/17 01/05/19 Amlodipine Besylate [Norvasc 5mg 5 mg PO DAILY 01/05/19 01/05/19 tablet] Cefdinir [Omnicef 300mg Capsule] 300 mg PO BID 01/05/19 01/05/19 Warfarin Sodium [Coumadin 5mg 5 mg PO DIRECTED 01/05/19 01/05/19 tablet] Allergies Allergy/AdvReac Type Severity Reaction Status Date / Time No Known Allergies Allergy Verified 01/05/19 22:07 [facility] History - Hepatitis A Screen Drug use history?: No High risk sexual behaviors?: No History of sexually transmitted infection?: No Currently employed?: No Childcare worker?: No Do you have indoor plumbing?: Yes Do you have electricity?: Yes Attestation statement:: This patient has been screened for Hepatitis A risk factors. I have reviewed the patient's past medical history: Yes Medical History: Reports:: Cardiomyopathy, Hyperlipidemia, Hypertension, Myocardial Infarction Denies:: Cancer, Diabetes Mellitus Type 1, Diabetes Mellitus Type 2, MRSA Other Surgeries: Yes: Hernia Repair Comment: Fatty tumor removed from back - Social History Smoking Status: Never smoker Tobacco Type: smokeless tobacco # Packs/Day (cigarettes): 0 Alcohol Intake: never Occupational Status: retired - Psychiatric History Expresses thoughts of harming self/others: None Suicide Plan Description: No Plan Family Hx:: Diabetes, Hypertension ROS Obtained: Yes All systems reviewed & no additional complaints - Constitutional Constitutional: Denies fever(s) - Eyes Eyes: Denies change in vision - ENT Ears, Nose, Mouth, and Throat: Denies sore throat - Cardiovascular Cardiovascular: Reports chest pain, Denies dyspnea - Respiratory Respiratory: No cough - Gastrointestinal Gastrointestingal: Denies: abdominal pain - Genitourinary Male Genitourinary: Denies hematuria - Musculoskeletal Musculoskeletal: Denies joint pain, Denies neck pain - Integumentary/Breasts Skin/Breast: Denies rash - Neurologic Neurologic: Denies seizure-like activity Physical Exam - General General appearance: alert, in no apparent distress, obese - Head Head exam: normocephalic - Eye Eye exam: Present: PERRL, EOMI. Absent: scleral icterus - ENT ENT exam: Present: mucous membranes dry - Neck Neck exam: Present: trachea midline - Respiratory Respiratory exam: Present: normal lung sounds bilaterally. Absent: respiratory distress - Cardiovascular Cardiovascular exam: Present: regular rate, systolic murmur, +S4 - Abdominal Exam Abdominal exam: Present: soft - Extremities Exam Extremities exam: Present: pedal edema. Absent: calf tenderness - Neurological Exam Neurological exam: Present: alert, oriented X3, CN II-XII intact - Psychiatric Psychiatric exam: Present: normal affect - Skin Skin exam: Absent: rash
[2019-01-06 05:41] LABS: Basophils % 0.8 % (0.1-2.0); Eosinophils # 0.4 K/mm3 (0.0-0.4); Hematocrit 41.7 % (42.0-52.0); Hemoglobin 13.9 g/dL (14.1-18.0); Lymphocytes # 1.6 K/mm3 (0.7-4.5); Lymphocytes % 35.6 % (10-50); Mean Corpuscular HGB Conc 33.2 g/dL (31.8-35.4); Mean Corpuscular Hemoglobin 30.7 pg (27.0-31.2); Mean Corpuscular Volume 92.4 fl (80-94); Mean Platelet Volume 7.9 fl (7.4-10.4); Monocytes # 0.4 K/mm3 (0.1-1.0); Monocytes % 8.5 % (1.7-9.3); Neutrophils # 2.1 K/mm3 (1.8-7.8); Neutrophils % 46.1 % (37.0-80.0); Platelet Count 203 K/mm3 (142-424); Red Blood Count 4.51 M/mm3 (4.60-6.20); Red Cell Distribution Width 15.3 % (11.5-17.5); White Blood Count 4.5 K/mm3 (4.8-10.8)
[2019-01-06 05:51] LABS: INR 1.92 (0.9-1.1); Prothrombin Time 19.4 seconds (9.4-11.8)
[2019-01-06 05:58] LABS: Anion Gap 11.4 mEq/L (5-15); Blood Urea Nitrogen 20 mg/dL (7-18); Calcium 8.9 mg/dL (8.5-10.1); Carbon Dioxide 26 mmol/L (21.0-32.0); Chloride 110 mmol/L (98-107); Glucose 122 mg/dL (74-106); Potassium 3.4 mmoL/L (3.5-5.1); Sodium 144 mmol/L (136-145)
--- NOTE | 2019-01-06 07:44 | Pharmacy Consult Notes ---
[facility] Pharmacy VTE Monitoring - Patient Demographics Admission date: 01/06/19 Report Date: 01/06/19 Time: 07:44 Allergies/Adverse Reactions: Patient Allergies No Known Allergies Allergy (Verified 01/05/19 22:07) Height: 1.65 m Weight: 87.685 kg Patient Problems: Current Active Problems Chest pain (Acute) Hiatal hernia (Chronic) Renal insufficiency (Acute) Pulmonary embolism (Acute) - VTE Risk Labs: VTE Related Lab Results Hgb 13.9 g/dL (14.1-18.0) L 01/06/19 05:24 Hct 41.7 % (42.0-52.0) L 01/06/19 05:24 Plt Count 203 K/mm3 (142-424) 01/06/19 05:24 PT 19.4 seconds (9.4-11.8) H 01/06/19 05:24 INR 1.92 (0.9-1.1) H 01/06/19 05:24 BUN 20 mg/dL (7-18) H 01/06/19 05:24 Creatinine 1.36 mg/dL (0.70-1.30) H 01/06/19 05:24 Estimated Creat Clear 59 mL/min (50-200) 01/06/19 05:24 Was VTE Risk Assessment Performed: Yes VTE Score: 4 VTE Risk Level: Low Risk Clinical Trial Participant: No - Prophylaxis VTE Prophylaxis Ordered?: Yes Types of VTE Prophylaxis: TEDS Knee High Location of Applied Device: Not Applicable
--- NOTE | 2019-01-06 08:52 | Consult Report ---
History of Present Illness Consult date: 01/06/19 Requesting physician: Neville Dye Consult reason: chest pain Chief complaint: chest pain Additional Medical History:: 1. Coronary artery disease A. History of anterior FL approximately 2005 B. Left heart catheterization 2005, Dr. Laureano, occluded LAD in the midportion with extensive anterior apical wall hypokinesis and ejection fraction of 40%. 2. Hypertension A. Echocardiogram, 10/2017,2D 1. Left atrium is mildly enlarged, left ventricle is normal size, there is mild concentric left ventricular hypertrophy present, visually estimated ejection fraction 55% with no obvious regional wall motion abnormality. 2. The right atrium and right ventricle are normal size and contractility. 3. The aortic valve is thickened and calcified leaflet continue to display mobility. 4. The mitral and tricuspid valve leaflets are minimally thickened. 5. The pulmonic valve is poorly visualized. 6. No significant pericardial effusion noted. DOPPLER INTERROGATION: Doppler interrogation of the aortic, mitral and tricuspid valvular presence of mild aortic, mild mitral and tricuspid regurgitation, tricuspid regurgitant jet velocity is insufficient for calculation of the right ventricular systolic pressure, grade 1 diastolic dysfunction seen with tissue Doppler evidence of raised left atrial pressure. CONCLUSION: 1. Mildly enlarged left atrium, normal left ventricular size, mild concentric left ventricular hypertrophy, visually estimated ejection fraction 55% with no obvious regional wall motion abnormality, grade 1 diastolic dysfunction seen with tissue Doppler evidence of raised left atrial pressure. Mild mitral, aortic and tricuspid regurgitation. 3. No significant pericardial effusion noted 3. Hyperlipidemia 4. History of bilateral pulmonary emboli , chronic Coumadin therapy 4. History of GERD with moderate hiatal hernia A. Patient reports history of esophageal stricture with subsequent dilatation x2 in the past History of present illness: 73-year-old white male with history as noted above presented to the emergency department yesterday for a [id number] episode of chest pain in the substernal area described as a heartburn sensation. Patient denies radiation of symptoms, nausea, vomiting or diarrhea. Possibly some diaphoresis noted per the patient's . Symptoms occurred after taking food and medications. Patient did try to force himself to belch which may have helped. Symptoms resolved with no recurrence. Patient came to the hospital due to his extensive coronary and pulmonary history for evaluation and subsequent admission. Cardiac troponins x3 have returned normal and EKG shows sinus rhythm with LVH and poor R wave progression anteriorly. Cardiology consulted for evaluation recommendations. Blood pressure noted to be markedly elevated during ER evaluation but did improve. [facility] History Medical History: Reports:: Cardiomyopathy, Hyperlipidemia, Hypertension, Myocardial Infarction Denies:: Cancer, Diabetes Mellitus Type 1, Diabetes Mellitus Type 2, MRSA *Have you ever received a pneumonia vaccine?: Yes *Have you received a flu vaccine this season?: Yes Other Surgeries: Yes: Hernia Repair - *Social History Smoking Status: Never smoker Tobacco Type: smokeless tobacco # Packs/Day (cigarettes): 0 Alcohol Intake: never *Occupational Status:: retired *Travel in the last 8 weeks: None - Psychiatric History Expresses thoughts of harming self/others: None Suicide Plan Description: No Plan Family Hx:: Diabetes, Hypertension Meds Home Medications Medication Instructions Recorded Confirmed Type Aspirin [Aspir 81] 81 mg PO DAILY 11/28/17 01/05/19 History Atorvastatin Calcium [Atorvastatin 80 mg PO HS 11/28/17 01/05/19 History 80mg Tab] B12/Levomefolate Calcium/B-6 1 each PO DAILY 11/28/17 01/05/19 History [Folbic Rf Tablet] Citalopram Hydrobromide [Celexa 20 mg PO DAILY 11/28/17 01/05/19 History 20mg Tablet] Ergocalciferol (Vitamin D2) 400 unit PO DAILY 11/28/17 01/05/19 History [Vitamin D] Metoprolol Tartrate [Lopressor 100 mg PO DAILY 11/28/17 01/05/19 History 100mg Tablet] Metoprolol Tartrate [Lopressor 50 mg PO PM 11/28/17 01/05/19 History 50mg tablet] Mirabegron [Myrbetriq] 25 mg PO DAILY 11/28/17 01/05/19 History Niacin [Slo-Niacin] 250 mg PO HS 11/28/17 01/05/19 History Potassium Chloride [K-Tab ER 20 20 meq PO DAILY 11/28/17 01/05/19 History mEq] Temazepam [Restoril] 15 mg PO HS 11/28/17 01/05/19 History hydroCHLOROthiazide 12.5 mg PO QODHS 11/28/17 01/05/19 History [Hydrochlorothiazide 12.5mg Tab] Nitroglycerin 0.4 mg PO Q5MINP PRN 11/29/17 01/05/19 History Amlodipine Besylate [Norvasc 5mg 5 mg PO DAILY 01/05/19 01/05/19 History tablet] Warfarin Sodium [Coumadin 5mg 5 mg PO DIRECTED 01/05/19 01/05/19 History tablet] Fenofibrate Nanocrystallized 145 mg PO DAILY 01/06/19 01/06/19 History [Fenofibrate] Lisinopril [Lisinopril 20mg Tab] 20 mg PO DAILY 01/06/19 01/06/19 History Omeprazole [Omeprazole 40mg 40 mg PO DAILY 01/06/19 01/06/19 History Capsule] Allergies Allergy/AdvReac Type Severity Reaction Status Date / Time No Known Allergies Allergy Verified 01/05/19 22:07 Review of Systems - *Cardiovascular Reports chest pain, Denies shortness of breath, Denies generalized swelling - *Respiratory Denies cough, Denies shortness of breath - *Gastrointestinal Denies abdominal pain, Denies loose stools, Denies vomiting - *Genitourinary Reports urinary urgency - *Musculoskeletal Denies joint pain, Denies back pain - *Neurologic Denies seizure-like activity Exam Vital signs and Labs for Last 24 Hours: Temp Pulse Resp BP Pulse Ox 98.0 F 58 L 17 151/93 H 95 01/06/19 08:00 01/06/19 08:00 01/06/19 08:00 01/06/19 08:00 01/06/19 08:00 Laboratory Results - last 24 hr 01/05/19 22:05: WBC 5.7, RBC 5.00, Hgb 15.3, Hct 46.5, MCV 93.1, MCH 30.7, MCHC 33.0, RDW 15.3, Plt Count 228, MPV 7.7, Neut % (Auto) 56.5, Lymph % (Auto) 27.2, Ida % (Auto) 7.9, Eos % (Auto) 7.6, Baso % (Auto) 0.9, Neut # (Auto) 3.2, Lymph # (Auto) 1.6, Ida # (Auto) 0.5, Eos # (Auto) 0.4, Baso # (Auto) 0.1 01/05/19 22:05: Sodium 145, Potassium 3.5, Chloride 109 H, Carbon Dioxide 25, Anion Gap 14.5, BUN 20 H, Creatinine 1.57 H, Estimated Creat Clear 53, Estimated GFR 43 L, Est GFR ( Amer) 53 L, Glucose 135 H, Calcium 9.5, Troponin I < 0.02 01/05/19 22:05: PT 17.9 H, INR 1.77 H 01/06/19 04:03: Troponin I < 0.02 01/06/19 05:24: WBC 4.5 L, RBC 4.51 L, Hgb 13.9 L, Hct 41.7 L, MCV 92.4, MCH 30.7, MCHC 33.2, RDW 15.3, Plt Count 203, MPV 7.9, Neut % (Auto) 46.1, Lymph % (Auto) 35.6, Ida % (Auto) 8.5, Eos % (Auto) 9.0, Baso % (Auto) 0.8, Neut # (Auto) 2.1, Lymph # (Auto) 1.6, Ida # (Auto) 0.4, Eos # (Auto) 0.4, Baso # (Auto) 0.0 01/06/19 05:24: PT 19.4 H, INR 1.92 H 01/06/19 05:24: Sodium 144, Potassium 3.4 L, Chloride 110 H, Carbon Dioxide 26, Anion Gap 11.4, BUN 20 H, Creatinine 1.36 H, Estimated Creat Clear 59, Estimated GFR 51 L, Est GFR ( Amer) 62, Glucose 122 H, Calcium 8.9, Magnesium 1.9, Troponin I < 0.02 I & O for Last 24 hours: Intake & Output 01/03/19 01/04/19 01/05/19 01/06/19 10:59 11:59 11:59 11:59 Intake Total 360 / 360 Balance 360 / 360 Weight 193 lb 5 oz - *Routine HEENT Exam Head: Present: normocephalic Eye: Present: EOMI, PERRL ENT: Present: mucous membranes moist - *Routine Neck Exam Present: supple. Absent: JVD, carotid bruit - *Routine Respiratory Exam Present: CTA bilaterally. Absent: accessory muscle use, rales, rhonchi, wheezes - *Routine Cardiovascular Exam Present: RRR. Absent: murmur, gallop, rubs - *Routine Abdominal Exam Present: soft. Absent: tenderness, distended, guarding - *Routine Extremities Exam Absent: edema, calf tenderness - *Routine Neurological Exam Present: alert, oriented X3, moving all extremities Assessment and Plan (1) Chest pain Current visit: Yes Status: Acute Qualifiers: Chest pain type: precordial pain Qualified Code(s): R07.2 - Precordial pain Category: Medical Code(s): R07.9 - Chest pain, unspecified (2) Pulmonary embolism Current visit: Yes Status: Acute Qualifiers: Pulmonary embolism type: unspecified Chronicity: chronic Acute cor pulmonale presence: without acute cor pulmonale Qualified Code(s): I27.82 - Chronic pulmonary embolism Category: Medical Code(s): I26.99 - Other pulmonary embolism without acute cor pulmonale (3) Renal insufficiency Current visit: Yes Status: Acute Category: Medical Code(s): N28.9 - Disorder of kidney and ureter, unspecified (4) Hiatal hernia Current visit: Yes Status: Chronic Category: Medical Code(s): K44.9 - Diaphragmatic hernia without obstruction or gangrene (5) Hypertensive urgency Current visit: No Status: Acute Category: Medical Code(s): I16.0 - Hypertensive urgency - Assessment and plan all Dx Assessment and Plan for all problems:: 1. Chest pain, brief with normal troponins and EKG without acute changes. Recommend the patient can be discharged home for further workup as an outpatient including stress test and repeat echocardiogram. 2. Regarding hypertension, patient is on maximally tolerated dose of beta- candace with heart rates in the 50s. Would recommend increasing his lisinopril to 20 mg daily with close follow-up of his renal status. 3. Follow-up in our office in 1-2 weeks
--- NOTE | 2019-01-06 09:31 | H&P/Discharge Summary ---
General - General Admission date:: 01/06/19 Discharge date: 01/06/19 *Admission Date: 01/06/19 *Chief complaint: Chest pain *History of present illness: Mr. Gallardo is a 73-year-old white male with history of coronary artery disease, hypertension, hyperlipidemia, depression, pulmonary embolism, and chronic kidney disease stage III who presented to the emergency department yesterday after experiencing 20-30 minutes of chest pain across the anterior chest. Denies having any shortness of breath, radiation, nausea or vomiting. He states he may have had some heartburn. Symptoms did resolve but blood pressure was elevated his encouraged him to come to the emergency room. Patient was evaluated in the emergency room and admitted for further evaluation and treatment. Cardiac troponins have been negative x3 and EKG showed normal sinus rhythm with left ventricular hypertrophy and poor R wave progression anteriorly. Blood pressure was noted to be markedly elevated during the ER evaluation but did improve. Patient arrived to his room about 3 AM and has slept very little. He feels comfortable this morning and continually denies any further chest pain and shortness of breath. request a cardiology consult. [facility] History Medical History: Reports:: Cardiomyopathy, Congestive Heart Failure, Coronary Artery Disease, Depression, Gastroesophageal Reflux Disease(GERD), Hyperlipidemia, Hypertension, Myocardial Infarction Denies:: Cancer, Diabetes Mellitus Type 1, Diabetes Mellitus Type 2, MRSA *Have you ever received a pneumonia vaccine?: Yes *Have you received a flu vaccine this season?: Yes Other Surgeries: Yes: Hernia Repair Comment: Fatty tumor removed from his back - *Social History Smoking Status: Never smoker Tobacco Type: smokeless tobacco # Packs/Day (cigarettes): 0 Alcohol Intake: never *Occupational Status:: retired *Travel in the last 8 weeks: None - Psychiatric History Expresses thoughts of harming self/others: None Suicide Plan Description: No Plan Family Hx:: Coronary Artery Disease, Diabetes, Hypertension Review of Systems - Constitutional Denies fever(s), Denies headache(s) - ENT Denies dizziness, Denies ear pain, Denies sore throat - *Cardiovascular Reports chest pain, Denies excessive sweating, Denies shortness of breath, Denies irregular heart rhythm, Denies leg swelling - *Respiratory Denies chest congestion, Denies cough, Denies shortness of breath - *Gastrointestinal Reports heartburn, Denies abdominal pain, Denies belching, Denies change in bowel habits, Denies change in stools, Denies constipation, Denies difficulty swallowing, Denies nausea, Denies vomiting - *Genitourinary Denies difficulty urinating - *Musculoskeletal Denies abnormal walking, Denies muscle weakness - *Neurologic Denies behavioral changes, Denies dizziness, Denies headache(s), Denies seizure- like activity Exam Vital signs and Labs for Last 24 Hours: Temp Pulse Resp BP Pulse Ox 98.0 F 58 L 17 151/93 H 95 01/06/19 08:00 01/06/19 08:00 01/06/19 08:00 01/06/19 08:00 01/06/19 08:00 Laboratory Results - last 24 hr 01/05/19 22:05: WBC 5.7, RBC 5.00, Hgb 15.3, Hct 46.5, MCV 93.1, MCH 30.7, MCHC 33.0, RDW 15.3, Plt Count 228, MPV 7.7, Neut % (Auto) 56.5, Lymph % (Auto) 27.2, [place]ombs % (Auto) 7.9, Eos % (Auto) 7.6, Baso % (Auto) 0.9, Neut # (Auto) 3.2, Lymph # (Auto) 1.6, [place] # (Auto) 0.5, Eos # (Auto) 0.4, Baso # (Auto) 0.1 01/05/19 22:05: Sodium 145, Potassium 3.5, Chloride 109 H, Carbon Dioxide 25, An ion Gap 14.5, BUN 20 H, Creatinine 1.57 H, Estimated Creat Clear 53, Estimated GFR 43 L, Est GFR ( Amer) 53 L, Glucose 135 H, Calcium 9.5, Troponin I < 0.02 01/05/19 22:05: PT 17.9 H, INR 1.77 H 01/06/19 04:03: Troponin I < 0.02 01/06/19 05:24: WBC 4.5 L, RBC 4.51 L, Hgb 13.9 L, Hct 41.7 L, MCV 92.4, MCH 30.7, MCHC 33.2, RDW 15.3, Plt Count 203, MPV 7.9, Neut % (Auto) 46.1, Lymph % (Auto) 35.6, [place] % (Auto) 8.5, Eos % (Auto) 9.0, Baso % (Auto) 0.8, Neut # (Auto) 2.1, Lymph # (Auto) 1.6, [place] # (Auto) 0.4, Eos # (Auto) 0.4, Baso # (Auto) 0.0 01/06/19 05:24: PT 19.4 H, INR 1.92 H 01/06/19 05:24: Sodium 144, Potassium 3.4 L, Chloride 110 H, Carbon Dioxide 26, Anion Gap 11.4, BUN 20 H, Creatinine 1.36 H, Estimated Creat Clear 59, Estimated GFR 51 L, Est GFR ( Amer) 62, Glucose 122 H, Calcium 8.9, Magnesium 1.9, Troponin I < 0.02 I & O for Last 24 hours: Intake & Output 01/03/19 01/04/19 01/05/19 01/06/19 10:59 11:59 11:59 11:59 Intake Total 360 / 360 Balance 360 / 360 Weight 193 lb 5 oz Radiology Reports for the Last 24 Hours: 01/05/2019 chest x-ray FINDINGS: Unremarkable heart size. There is a moderate-sized hiatal hernia. Lungs are clear. No acute bony findings. IMPRESSION: Moderate-sized hiatal hernia otherwise negative - Constitutional no acute distress Comments: Sitting up in the bed eating his breakfast - *Routine HEENT Exam Head: Present: normocephalic, atraumatic Eye: Present: EOMI, PERRL. Absent: conjunctival icterus, scleral injection ENT: Present: mucous membranes moist, oropharynx clear - *Routine Neck Exam Present: supple, full ROM. Absent: carotid bruit, lymphadenopathy, thyromegaly - *Routine Respiratory Exam Present: CTA bilaterally (Anteriorly and posteriorly) - *Routine Cardiovascular Exam Present: RRR - *Routine Abdominal Exam Present: soft, normoactive bowel sounds. Absent: tenderness, distended - *Routine Extremities Exam Absent: edema, calf tenderness - *Routine Neurological Exam Present: alert, oriented X3. Absent: pronator drift Hospital Course Hospital Course: After admission patient had no further chest pain. Although he did not sleep he did rest comfortably. He also denied shortness of breath and nausea. He was seen by cardiology with the following assessment and plan: 1. Chest pain, brief with normal troponins and EKG without acute changes. Recommend the patient can be discharged home for further workup as an outpatient including stress test and repeat echocardiogram. 2. Regarding hypertension, patient is on maximally tolerated dose of beta- candace with heart rates in the 50s. Would recommend increasing his lisinopril to 20 mg daily with close follow-up of his renal status. 3. Follow-up in our office in 1-2 weeks Results Labs on day of discharge: Labs from last 24 hours 01/06/19 01/06/19 01/06/19 05:24 05:24 05:24 WBC 4.5 L RBC 4.51 L Hgb 13.9 L Hct 41.7 L MCV 92.4 MCH 30.7 MCHC 33.2 RDW 15.3 Plt Count 203 MPV 7.9 Neut % (Auto) 46.1 Lymph % (Auto) 35.6 Toombs % (Auto) 8.5 Eos % (Auto) 9.0 Baso % (Auto) 0.8 Neut # (Auto) 2.1 Lymph # (Auto) 1.6 Toombs # (Auto) 0.4 Eos # (Auto) 0.4 Baso # (Auto) 0.0 PT 19.4 H INR 1.92 H Sodium 144 Potassium 3.4 L Chloride 110 H Carbon Dioxide 26 Anion Gap 11.4 BUN 20 H Creatinine 1.36 H Estimated Creat Clear 59 Estimated GFR 51 L Est GFR ( Amer) 62 Glucose 122 H Calcium 8.9 Magnesium 1.9 Troponin I < 0.02 01/06/19 01/05/19 01/05/19 04:03 22:05 22:05 WBC RBC Hgb Hct MCV MCH MCHC RDW Plt Count MPV Neut % (Auto) Lymph % (Auto) [place]ombs % (Auto) Eos % (Auto) Baso % (Auto) Neut # (Auto) Lymph # (Auto) [place]ombs # (Auto) Eos # (Auto) Baso # (Auto) PT 17.9 H INR 1.77 H Sodium 145 Potassium 3.5 Chloride 109 H Carbon Dioxide 25 Anion Gap 14.5 BUN 20 H Creatinine 1.57 H Estimated Creat Clear 53 Estimated GFR 43 L Est GFR ( Amer) 53 L Glucose 135 H Calcium 9.5 Magnesium Troponin I < 0.02 < 0.02 01/05/19 22:05 WBC 5.7 RBC 5.00 Hgb 15.3 Hct 46.5 MCV 93.1 MCH 30.7 MCHC 33.0 RDW 15.3 Plt Count 228 MPV 7.7 Neut % (Auto) 56.5 Lymph % (Auto) 27.2 [place]ombs % (Auto) 7.9 Eos % (Auto) 7.6 Baso % (Auto) 0.9 Neut # (Auto) 3.2 Lymph # (Auto) 1.6 Toombs # (Auto) 0.5 Eos # (Auto) 0.4 Baso # (Auto) 0.1 PT INR Sodium Potassium Chloride Carbon Dioxide Anion Gap BUN Creatinine Estimated Creat Clear Estimated GFR Est GFR ( Amer) Glucose Calcium Magnesium Troponin I DS: Diagnosis - Discharge Diagnosis (1) Chest pain Status: Acute (2) Pulmonary embolism Status: Chronic (3) Renal insufficiency Status: Chronic (4) Hiatal hernia Status: Chronic (5) Hypertensive urgency Status: Acute (6) Coronary artery disease Status: Acute (7) Hyperlipidemia Status: Acute Discharge Medications - Medications for Discharge Home Medication List at Discharge: No Action Potassium Chloride [K-Tab ER 20 mEq] 20 meq PO DAILY Niacin [Slo-Niacin] 250 mg PO HS Mirabegron [Myrbetriq] 25 mg PO DAILY hydroCHLOROthiazide [Hydrochlorothiazide 12.5mg Tab] 12.5 mg PO QODHS Ergocalciferol (Vitamin D2) [Vitamin D] 400 unit PO DAILY Citalopram Hydrobromide [Celexa 20mg Tablet] 20 mg PO DAILY Atorvastatin Calcium [Atorvastatin 80mg Tab] 80 mg PO HS Aspirin [Aspir 81] 81 mg PO DAILY Metoprolol Tartrate [Lopressor 50mg tablet] 50 mg PO PM Warfarin Sodium [Coumadin 5mg tablet] 5 mg PO DIRECTED Omeprazole [Omeprazole 40mg Capsule] 40 mg PO DAILY Fenofibrate Nanocrystallized [Fenofibrate] 145 mg PO DAILY Metoprolol Tartrate [Lopressor 100mg Tablet] 100 mg PO DAILY Temazepam [Restoril] 15 mg PO HS B12/Levomefolate Calcium/B-6 [Folbic Rf Tablet] 1 each PO DAILY Nitroglycerin 0.4 mg PO Q5MINP PRN PRN Reason: Chest Pain Amlodipine Besylate [Norvasc 5mg tablet] 5 mg PO DAILY Lisinopril [Lisinopril 20mg Tab] 20 mg PO DAILY Disposition Disposition: Home, Self-Care
== END 2019-01-06 14:05 | disposition home or self-care (01) ==
LOC: 2ND 22:00 → ER 22:00 → 2ND 01-06 01:02
PROVIDERS: ADMIT Emergency Medicine; ATTEND Family Medicine
DX: I16.0 Hypertensive urgency; K44.9 Diaphragmatic hernia without obstruction or gangrene; I25.10 Atherosclerotic heart disease of native coronary artery without angina pectoris; R07.2 Precordial pain; N18.3 Chronic kidney disease, stage 3 (moderate); Z79.82 Long term (current) use of aspirin; Z79.899 Other long term (current) drug therapy; I51.7 Cardiomegaly; K21.9 Gastro-esophageal reflux disease without esophagitis; I25.2 Old myocardial infarction; E78.5 Hyperlipidemia, unspecified; R07.9 Chest pain, unspecified; I27.82 Chronic pulmonary embolism; Z79.01 Long term (current) use of anticoagulants; I12.9 Hypertensive chronic kidney disease with stage 1 through stage 4 chronic kidney disease, or unspecified chronic kidney disease
CPT/HCPCS: 36415; 71020; 71046; 80048; 83735; 84484; 85025; 85378; 85610; 93005; 99284; G0378

== ENCOUNTER 2019-07-22 21:34 | Observation (INO) ==
[2019-07-22 21:54] LABS: Basophils % 0.7 % (0.1-2.0); Eosinophils # 0.4 K/mm3 (0.0-0.4); Eosinophils % 6.4 % (0.1-12.0); Hematocrit 48.4 % (42.0-52.0); Hemoglobin 14.8 g/dL (14.1-18.0); Lymphocytes # 1.6 K/mm3 (0.7-4.5); Mean Corpuscular HGB Conc 30.5 g/dL (31.8-35.4); Mean Corpuscular Volume 97.3 fl (80-94); Monocytes # 0.5 K/mm3 (0.1-1.0); Monocytes % 8.5 % (1.7-9.3); Neutrophils # 3.1 K/mm3 (1.8-7.8); Neutrophils % 56.3 % (37.0-80.0); Platelet Count 262 K/mm3 (142-424); Red Blood Count 4.98 M/mm3 (4.60-6.20); White Blood Count 5.6 K/mm3 (4.8-10.8)
[2019-07-22 22:06] LABS: Amylase 51 U/L (25-115); Anion Gap 10.6 mEq/L (5-15); Blood Urea Nitrogen 19 mg/dL (7-18); Calcium 8.9 mg/dL (8.5-10.1); Carbon Dioxide 29 mmol/L (21.0-32.0); Chloride 108 mmol/L (98-107); Glucose 147 mg/dL (74-106); Sodium 144 mmol/L (136-145)
[2019-07-22 22:21] LABS: Activated Partial Thrombo Time 26.4 seconds (23.6-34.0); INR 1.12 (0.9-1.1); Prothrombin Time 11.6 seconds (9.4-11.8)
--- NOTE | 2019-07-22 22:25 | Emergency Department Note ---
ED Disposition Clinical Impression: Unstable angina pectoris, Hiatal hernia, Renal insufficiency HTN (hypertension) Qualifiers: Hypertension type: essential hypertension Qualified Code(s): I10 - Essential (primary) hypertension Disposition: Admitted as Observation Condition on Discharge: Good Referrals: Provider,Referral, [Referring] - - Critical Care Critical Care Time: No Attestation: On 07/22/19, the high probability of a clinically significant, sudden or life threatening deterioration of the following system(s) required my full and direct attention, intervention and personal management. The time I documented below is in addition to time spent performing reported procedures but includes the following listed in this critical care notation. Medical Decision Making - Medical Records Medical records reviewed: Yes: I reviewed the patient's medical records. - Santino Inquiry Pt receiving controlled substance: No Vital Signs: 07/22/19 21:35 07/22/19 22:06 Temperature 98.6 F Temperature Source Temporal Artery Scan Pulse Rate [Right Brachial] 89 58 L Respiratory Rate 20 18 Blood Pressure [Right Arm] 180/90 H 138/74 Blood Pressure Mean [Right Arm] 120 95 Blood Pressure Source [Right Arm] Manual Cuff/ Auscultation Automatic Cuff Blood Pressure Position [Right Arm] Sitting Sitting 02 Sat by Pulse Oximetry 99 98 Oxygen Delivery Method Room Air Room Air - Lab Data Lab results reviewed: Yes: I reviewed the patient's lab results. Lab Results 07/22/19 21:40: WBC 5.6, RBC 4.98, Hgb 14.8, Hct 48.4, MCV 97.3 H, MCH 29.7, MCHC 30.5 L, RDW 16.0, Plt Count 262, MPV 8.0, Neut % (Auto) 56.3, Lymph % (Auto) 28.0, [place] % (Auto) 8.5, Eos % (Auto) 6.4, Baso % (Auto) 0.7, Neut # (Auto) 3.1, Lymph # (Auto) 1.6, [place] # (Auto) 0.5, Eos # (Auto) 0.4, Baso # (Auto) 0.0 07/22/19 21:40: Sodium 144, Potassium 3.6, Chloride 108 H, Carbon Dioxide 29, Anion Gap 10.6, BUN 19 H, Creatinine 1.64 H, Estimated Creat Clear 48, Estimated GFR 41 L, Est GFR ( Amer) 50 L, Glucose 147 H, Calcium 8.9, Troponin I < 0.02, Amylase 51, Lipase 231 07/22/19 21:40: PT 11.6, INR 1.12 H, APTT 26.4 Result diagrams: 07/22/19 21:40 07/22/19 21:40 Orders (Tests/Meds): ED MEDICATIONS Discontinued Medications Generic Name Dose Route Start Last Admin Trade Name Freq PRN Reason Stop Dose Admin Aspirin 243 mg 07/22/19 22:06 07/22/19 21:35 Aspirin 81mg Chewable Tablet PO 07/22/19 22:07 243 mg ONCE ONE Administration ORDERS Category Date Time Status XR chest 2V Stat Exams 07/22/19 21:45 Ordered ECG Request by /Marly Stat Y 07/22/19 21:45 Ordered - Radiology Data #1 Image(s): Chest Image Reviewed: Yes I reviewed the patient's radiology image Preliminary Findings: Abnormal (hiatal hernia ) - ECG Data Tracing #1 Normal Sinus Rhythm: Yes Ischemic changes: non-specific ST-T wave changes - Physician Consults Physician Consulted: kassie Reason -: Admission Additional Consult: sandy Reason -: Pt condition Chest Pain HPI - General Chief Complaint: Chest Pain Stated Complaint: CP Time Seen by Provider: 07/22/19 21:45 Mode of Arrival: Ambulatory Source of Information: Patient, Spouse, Medical Record Limitations: No Limitations Description of Symptoms (Recalled from ER Triage Doc. by RN): Pt c/o cp x 3 days. He states it is similar to when he had an MO. - History of Present Illness HPI narrative: intermittent chest pain described as tightness over the last 3 days - different fron prev gerd - has hx of cad complaint: chest pain indicative of cardiac Onset (ago): day(s) Duration: now resolved Activity at onset: during rest Pain location: substernal Severity: moderate Quality: heaviness Relieving factors: nothing Risk Factors for CAD: Hypertension, Hypercholesterolemia, Family Hx of CAD Treatments prior to or on arrival for Cardiac Chest Pain: none - CHETAN Score for Non-Stemi Age of Patient: 70-79 years old Heart Rate: 70-89 bpm Systolic Blood Pressure: 160-199 mmHg Serum Creatinine: 1.60-1.99 mg/dl CHF [place] Class: I-No CHF Other Risk Factors: None Non-Stemi Risk Score: 107 - Related Data Prior Cardiac Testing/Procedures: Stenting Home Medications Medication Instructions Recorded Confirmed Aspirin [Aspir 81] 81 mg PO DAILY 11/28/17 07/22/19 Atorvastatin Calcium [Atorvastatin 80 mg PO HS 11/28/17 07/22/19 80mg Tab] Citalopram Hydrobromide [Celexa 20 mg PO DAILY 11/28/17 07/22/19 20mg Tablet] Metoprolol Tartrate [Lopressor 100 mg PO DAILY 11/28/17 07/22/19 100mg Tablet] Mirabegron [Myrbetriq] 25 mg PO DAILY 11/28/17 07/22/19 Niacin [Slo-Niacin] 250 mg PO HS 11/28/17 07/22/19 Potassium Chloride [K-Tab ER 20 20 meq PO DAILY 11/28/17 07/22/19 mEq] Temazepam [Restoril] 15 mg PO HS 11/28/17 07/22/19 hydroCHLOROthiazide 12.5 mg PO QODHS 11/28/17 07/22/19 [Hydrochlorothiazide 12.5mg Tab] Amlodipine Besylate [Norvasc 5mg 5 mg PO DAILY 01/05/19 07/22/19 tablet] Fenofibrate Nanocrystallized 145 mg PO DAILY 01/06/19 07/22/19 [Fenofibrate] Lisinopril [Lisinopril 20mg Tab] 20 mg PO DAILY 01/06/19 07/22/19 Omeprazole [Omeprazole 40mg 40 mg PO DAILY 01/06/19 07/22/19 Capsule] Rivaroxaban [Xarelto 10mg tablet] 10 mg PO DAILY 07/22/19 07/22/19 Allergies Allergy/AdvReac Type Severity Reaction Status Date / Time No Known Allergies Allergy Verified 07/22/19 21:44 [facility] History - Hepatitis A Screen Drug use history?: No High risk sexual behaviors?: No History of sexually transmitted infection?: No Currently employed?: No Childcare worker?: No Do you have indoor plumbing?: Yes Do you have electricity?: Yes Attestation statement:: This patient has been screened for Hepatitis A risk factors. I have reviewed the patient's past medical history: Yes Medical History: Reports:: Cardiomyopathy, Congestive Heart Failure, Coronary Artery Disease, Depression, Gastroesophageal Reflux Disease(GERD), Hyperlipidemia, Hypertension, Myocardial Infarction Denies:: Cancer, Diabetes Mellitus Type 1, Diabetes Mellitus Type 2, MRSA Other Surgeries: Yes: Hernia Repair Comment: Fatty tumor removed from his back - Social History Smoking Status: Never smoker Tobacco Type: smokeless tobacco # Packs/Day (cigarettes): 0 Alcohol Intake: never Occupational Status: retired Housing: house - Psychiatric History Pschychiatric History:: Reports:: Depression Family Hx:: Coronary Artery Disease, Diabetes, Hypertension ROS Obtained: Yes All systems reviewed & no additional complaints - Constitutional Constitutional: Denies fever(s) - Eyes Eyes: Denies change in vision - ENT Ears, Nose, Mouth, and Throat: Denies sore throat - Cardiovascular Cardiovascular: Reports chest pain, Reports chest pain at rest, Denies dyspnea, Denies radiating jaw, neck or arm pain - Respiratory Respiratory: No cough - Gastrointestinal Gastrointestingal: Reports: nausea. Denies: abdominal pain, vomiting - Genitourinary Male Genitourinary: Denies hematuria - Musculoskeletal Musculoskeletal: Denies joint pain - Integumentary/Breasts Skin/Breast: Denies rash - Neurologic Neurologic: Denies seizure-like activity Physical Exam - General General appearance: alert, in no apparent distress - Head Head exam: normocephalic - Eye Eye exam: Present: PERRL, EOMI. Absent: scleral icterus - ENT ENT exam: Present: mucous membranes dry - Neck Neck exam: Present: trachea midline - Respiratory Respiratory exam: Present: normal lung sounds bilaterally. Absent: respiratory distress - Cardiovascular Cardiovascular exam: Present: regular rate, systolic murmur, +S4 - Abdominal Exam Abdominal exam: Present: soft - Extremities Exam Extremities exam: Present: full ROM. Absent: calf tenderness - Neurological Exam Neurological exam: Present: alert, oriented X3, CN II-XII intact - Psychiatric Psychiatric exam: Present: normal affect - Skin Skin exam: Absent: rash
[2019-07-23 06:34] LABS: Basophils % 0.6 % (0.1-2.0); Eosinophils # 0.3 K/mm3 (0.0-0.4); Eosinophils % 6.4 % (0.1-12.0); Hematocrit 45.2 % (42.0-52.0); Hemoglobin 13.8 g/dL (14.1-18.0); Lymphocytes # 1.6 K/mm3 (0.7-4.5); Lymphocytes % 32.2 % (10-50); Mean Corpuscular HGB Conc 30.5 g/dL (31.8-35.4); Mean Corpuscular Volume 96.5 fl (80-94); Mean Platelet Volume 8.1 fl (7.4-10.4); Monocytes # 0.4 K/mm3 (0.1-1.0); Monocytes % 8.5 % (1.7-9.3); Neutrophils # 2.6 K/mm3 (1.8-7.8); Neutrophils % 52.3 % (37.0-80.0); Platelet Count 225 K/mm3 (142-424); Red Blood Count 4.68 M/mm3 (4.60-6.20); White Blood Count 4.9 K/mm3 (4.8-10.8)
[2019-07-23 06:42] LABS: Anion Gap 10.6 mEq/L (5-15)
--- NOTE | 2019-07-23 07:49 | Consult Report ---
History of Present Illness Consult date: 07/23/19 Requesting physician: Neville Dye Consult reason: chest pain Chief complaint: chest pain Additional Medical History:: 1. Coronary artery disease A. History of anterior HI approximately 2005 B. Left heart catheterization 2005, Dr. Laureano, occluded LAD in the midportion with extensive anterior apical wall hypokinesis and ejection fraction of 40%. 2. Hypertension A. Echocardiogram, 10/2017,2D 1. Left atrium is mildly enlarged, left ventricle is normal size, there is mild concentric left ventricular hypertrophy present, visually estimated ejection fraction 55% with no obvious regional wall motion abnormality. 2. The right atrium and right ventricle are normal size and contractility. 3. The aortic valve is thickened and calcified leaflet continue to display mobility. 4. The mitral and tricuspid valve leaflets are minimally thickened. 5. The pulmonic valve is poorly visualized. 6. No significant pericardial effusion noted. DOPPLER INTERROGATION: Doppler interrogation of the aortic, mitral and tricuspid valvular presence of mild aortic, mild mitral and tricuspid regurgitation, tricuspid regurgitant jet velocity is insufficient for calculation of the right ventricular systolic pressure, grade 1 diastolic dysfunction seen with tissue Doppler evidence of raised left atrial pressure. CONCLUSION: 1. Mildly enlarged left atrium, normal left ventricular size, mild concentric left ventricular hypertrophy, visually estimated ejection fraction 55% with no obvious regional wall motion abnormality, grade 1 diastolic dysfunction seen with tissue Doppler evidence of raised left atrial pressure. Mild mitral, aortic and tricuspid regurgitation. 3. No significant pericardial effusion noted 3. Hyperlipidemia 4. History of bilateral pulmonary emboli , chronic Coumadin therapy (recently switched to Xarelto) 4. History of GERD with moderate hiatal hernia A. Patient reports history of esophageal stricture with subsequent dilatation x2 in the past History of present illness: 74-year-old white male with prior history of myocardial infarction in 2005 presented to the emergency department for further evaluation of substernal burning type chest pain that has been recurrent over the last 3 to 4 days with exertion and are the same symptoms as he had in 2006 with his heart attack. Symptoms last up to half hour at a time without nausea, vomiting, diaphoresis or radiation of pain. EKG shows sinus bradycardia in the 50s with no acute ST segment changes. Poor R wave progression is noted. Patient does have nitroglycerin tablets but has never used them. Troponins have returned normal x3. Patient does relate a history of esophageal stricture with dilatation on 2 separate occasions and hiatal hernia. Cardiology consulted for evaluation recommendations. [facility] History Medical History: Reports:: Cardiomyopathy, Congestive Heart Failure, Coronary Artery Disease, Depression, Gastroesophageal Reflux Disease(GERD), Hyperlipidemia, Hypertension, Myocardial Infarction Denies:: Cancer, Diabetes Mellitus Type 1, Diabetes Mellitus Type 2, MRSA *Have you ever received a pneumonia vaccine?: Yes *Have you received a flu vaccine this season?: Yes Other Surgeries: Yes: Hernia Repair Amputation: No Fractures: Yes (Left arm - plates) - *Social History Educational Level: Attended High School Smoking Status: Never smoker Tobacco Type: smokeless tobacco # Packs/Day (cigarettes): 0 Alcohol Intake: never *Occupational Status:: retired Housing: house Household Members: spouse *Travel in the last 8 weeks: None - Psychiatric History Pschychiatric History:: Reports:: Depression Family Hx:: Coronary Artery Disease, Diabetes, Hypertension Meds Home Medications Medication Instructions Recorded Confirmed Type Aspirin [Aspir 81] 81 mg PO DAILY 11/28/17 07/22/19 History Atorvastatin Calcium [Atorvastatin 80 mg PO HS 11/28/17 07/22/19 History 80mg Tab] Citalopram Hydrobromide [Celexa 20 mg PO DAILY 11/28/17 07/22/19 History 20mg Tablet] Metoprolol Tartrate [Lopressor 100 mg PO DAILY 11/28/17 07/22/19 History 100mg Tablet] Mirabegron [Myrbetriq] 25 mg PO DAILY 11/28/17 07/22/19 History Niacin [Slo-Niacin] 250 mg PO HS 11/28/17 07/22/19 History Potassium Chloride [K-Tab ER 20 20 meq PO DAILY 11/28/17 07/22/19 History mEq] Temazepam [Restoril] 15 mg PO HS 11/28/17 07/22/19 History hydroCHLOROthiazide 12.5 mg PO QODHS 11/28/17 07/22/19 History [Hydrochlorothiazide 12.5mg Tab] Amlodipine Besylate [Norvasc 5mg 5 mg PO DAILY 01/05/19 07/22/19 History tablet] Fenofibrate Nanocrystallized 145 mg PO DAILY 01/06/19 07/22/19 History [Fenofibrate] Lisinopril [Lisinopril 20mg Tab] 20 mg PO DAILY 01/06/19 07/22/19 History Omeprazole [Omeprazole 40mg 40 mg PO DAILY 01/06/19 07/22/19 History Capsule] Rivaroxaban [Xarelto 10mg tablet] 10 mg PO DAILY 07/22/19 07/22/19 History Allergies Allergy/AdvReac Type Severity Reaction Status Date / Time No Known Allergies Allergy Verified 07/22/19 21:44 Review of Systems - Constitutional Denies chills, Denies fever(s) - *Cardiovascular Reports chest pain, Denies shortness of breath - *Respiratory Denies cough, Denies shortness of breath - *Gastrointestinal Denies abdominal pain, Denies nausea, Denies vomiting - *Genitourinary Denies blood in urine - *Musculoskeletal Denies joint pain, Denies back pain - *Neurologic Denies dizziness, Denies seizure-like activity Exam Vital signs and Labs for Last 24 Hours: Temp Pulse Resp BP Pulse Ox 97.7 F 50 L 18 143/86 H 97 07/23/19 04:00 07/23/19 06:06 07/23/19 06:06 07/23/19 06:06 07/23/19 06:06 Laboratory Results - last 24 hr 07/22/19 21:40: WBC 5.6, RBC 4.98, Hgb 14.8, Hct 48.4, MCV 97.3 H, MCH 29.7, MCHC 30.5 L, RDW 16.0, Plt Count 262, MPV 8.0, Neut % (Auto) 56.3, Lymph % (Auto) 28.0, [place] % (Auto) 8.5, Eos % (Auto) 6.4, Baso % (Auto) 0.7, Neut # (Auto) 3.1, Lymph # (Auto) 1.6, [place] # (Auto) 0.5, Eos # (Auto) 0.4, Baso # (Auto) 0.0 07/22/19 21:40: Sodium 144, Potassium 3.6, Chloride 108 H, Carbon Dioxide 29, Anion Gap 10.6, BUN 19 H, Creatinine 1.64 H, Estimated Creat Clear 48, Estimated GFR 41 L, Est GFR ( Amer) 50 L, Glucose 147 H, Calcium 8.9, Troponin I < 0.02, Amylase 51, Lipase 231 07/22/19 21:40: PT 11.6, INR 1.12 H, APTT 26.4 07/23/19 02:10: Troponin I < 0.02 07/23/19 05:23: Troponin I < 0.02 07/23/19 05:23: WBC 4.9, RBC 4.68, Hgb 13.8 L, Hct 45.2, MCV 96.5 H, MCH 29.5, MCHC 30.5 L, RDW 16.0, Plt Count 225, MPV 8.1, Neut % (Auto) 52.3, Lymph % (Auto) 32.2, [place] % (Auto) 8.5, Eos % (Auto) 6.4, Baso % (Auto) 0.6, Neut # (Auto) 2.6, Lymph # (Auto) 1.6, [place] # (Auto) 0.4, Eos # (Auto) 0.3, Baso # (Auto) 0.0 07/23/19 05:23: Sodium 145, Potassium 3.6, Chloride 111 H, Carbon Dioxide 27, Anion Gap 10.6, BUN 17, Creatinine 1.49 H, Estimated Creat Clear 51, Estimated GFR 46 L, Est GFR ( Amer) 56 L, Glucose 94 D, Calcium 9.0, Magnesium 1.8 I & O for Last 24 hours: Intake & Output 07/20/19 07/21/19 07/22/19 07/23/19 11:59 11:59 11:59 11:59 Intake Total 580 / 580 Output Total 400 / 400 Balance 180 / 180 Weight 186 lb 12.8 oz - *Routine HEENT Exam Head: Present: normocephalic Eye: Present: EOMI, PERRL ENT: Present: mucous membranes moist - *Routine Neck Exam Present: supple. Absent: JVD, carotid bruit - *Routine Respiratory Exam Present: CTA bilaterally. Absent: accessory muscle use, rales, rhonchi, wheezes - *Routine Cardiovascular Exam Present: RRR. Absent: murmur, gallop, rubs - *Routine Abdominal Exam Present: soft. Absent: tenderness, distended, guarding - *Routine Extremities Exam Absent: edema, calf tenderness - *Routine Neurological Exam Present: alert, oriented X3, moving all extremities Assessment and Plan (1) Unstable angina pectoris Current visit: Yes Status: Acute Category: Medical Code(s): I20.0 - Unstable angina (2) HTN (hypertension) Current visit: Yes Status: Acute Qualifiers: Hypertension type: essential hypertension Qualified Code(s): I10 - Essential (primary) hypertension Category: Medical Code(s): I10 - Essential (primary) hypertension (3) Renal insufficiency Current visit: Yes Status: Chronic Category: Medical Code(s): N28.9 - Disorder of kidney and ureter, unspecified (4) Coronary artery disease Current visit: No Status: Acute Category: Medical Code(s): I25.10 - Atherosclerotic heart disease of [place] coronary artery without angina pectoris (5) Hyperlipidemia Current visit: No Status: Acute Category: Medical Code(s): E78.5 - Hyperlipidemia, unspecified (6) History of pulmonary embolism Current visit: Yes Status: Acute Category: Medical Code(s): Z86.711 - Pe rsonal history of pulmonary embolism - Assessment and plan all Dx Assessment and Plan for all problems:: 1. Recurrent chest pain despite 2 antianginal medications at maximally tolerated doses consistent with unstable angina pectoris. Troponins normal x3 and EKG with no acute ST segment changes. At the patient's cardiac history and recommend proceeding with left heart catheterization today to reevaluate his coronary arteries. Risks, benefits and procedure discussed with the patient and family and they agree to proceed. 2. Echocardiogram results pending 3. Further recommendations to follow.
--- NOTE | 2019-07-23 08:06 | Pharmacy Consult Notes ---
[facility] Pharmacy VTE Monitoring - Patient Demographics Admission date: 07/23/19 Report Date: 07/23/19 Time: 08:05 Allergies/Adverse Reactions: Patient Allergies No Known Allergies Allergy (Verified 07/22/19 21:44) Height: 1.68 m Weight: 84.731 kg Patient Problems: Current Active Problems Hiatal hernia (Chronic) Renal insufficiency (Chronic) Unstable angina pectoris (Acute) HTN (hypertension) (Acute) - VTE Risk Labs: VTE Related Lab Results Hgb 13.8 g/dL (14.1-18.0) L 07/23/19 05:23 Hct 45.2 % (42.0-52.0) 07/23/19 05:23 Plt Count 225 K/mm3 (142-424) 07/23/19 05:23 PT 11.6 seconds (9.4-11.8) 07/22/19 21:40 INR 1.12 (0.9-1.1) H 07/22/19 21:40 APTT 26.4 seconds (23.6-34.0) 07/22/19 21:40 BUN 17 mg/dL (7-18) 07/23/19 05:23 Creatinine 1.49 mg/dL (0.70-1.30) H 07/23/19 05:23 Estimated Creat Clear 51 mL/min (50-200) 07/23/19 05:23 VTE Score: 2 VTE Risk Level: Very Low Risk Clinical Trial Participant: No - Prophylaxis VTE Prophylaxis Ordered?: Yes Types of VTE Prophylaxis: TEDS Knee High
--- NOTE | 2019-07-23 08:58 | History & Physical Report ---
*Admission Date: 07/23/19 *Chief complaint: heartburn *History of present illness: Mr. Gallardo is a 74-year-old white male with prior history of [place] in 2005 who presented to the emergency department after he began having a substernal burning type chest pain that has been recurrent over the last 3 to 4 days. His states it seems to be worse with exertion and with eating. He had the same symptoms with his heart attack in 2006. The symptoms would last up to half an hour but he denies any associated nausea, vomiting, diaphoresis, or radiation of pain. EKG showed sinus bradycardia in the 50s with no acute ST segment changes. Poor R wave progression was noted. Troponins have returned normal x3. Cardiology was consulted for further evaluation and treatment. They feel the patient will need a heart cath. Of note the patient does have a history of esophageal stricture with dilatation on 2 separate occasions as well as a hiatal hernia. He also has nitroglycerin tablets but never takes them. [facility] History I have reviewed the patient's past medical history: Yes Medical History: Reports:: Cardiomyopathy, Congestive Heart Failure, Coronary Artery Disease, Depression, Gastroesophageal Reflux Disease(GERD), Hyperlipidemia, Hypertension, Myocardial Infarction Denies:: Cancer, Diabetes Mellitus Type 1, Diabetes Mellitus Type 2, MRSA *Have you ever received a pneumonia vaccine?: Yes *Have you received a flu vaccine this season?: Yes Other Surgeries: Yes: Hernia Repair Amputation: No Fractures: Yes (Left arm - plates) - *Social History Educational Level: Attended High School Smoking Status: Never smoker Tobacco Type: smokeless tobacco # Packs/Day (cigarettes): 0 Alcohol Intake: never *Occupational Status:: retired Housing: house Household Members: spouse *Travel in the last 8 weeks: None - Psychiatric History Pschychiatric History:: Reports:: Depression Family Hx:: Coronary Artery Disease, Diabetes, Hypertension Review of Systems - Constitutional Denies body ache(s), Denies chills, Denies weakness - Eyes Denies blurry vision, Denies double vision - ENT Denies nasal congestion, Denies sore throat - *Cardiovascular Reports chest pain (substernal burning pain), Denies shortness of breath, Denies rapid, pounding, or irregular heartbeat, Denies radiating jaw, neck or arm pain - *Respiratory Denies cough, Denies shortness of breath - *Gastrointestinal Denies abdominal pain, Denies loose stools, Denies nausea, Denies vomiting - *Genitourinary Denies difficulty urinating, Denies painful urination - *Musculoskeletal Denies joint pain, Denies muscle weakness - *Neurologic Denies dizziness, Denies seizure-like activity, Denies dizziness, Denies weakness Meds Home Medications Medication Instructions Recorded Confirmed Type Aspirin [Aspir 81] 81 mg PO DAILY 11/28/17 07/22/19 History Atorvastatin Calcium [Atorvastatin 80 mg PO HS 11/28/17 07/22/19 History 80mg Tab] Citalopram Hydrobromide [Celexa 20 mg PO DAILY 11/28/17 07/22/19 History 20mg Tablet] Metoprolol Tartrate [Lopressor 100 mg PO DAILY 11/28/17 07/22/19 History 100mg Tablet] Mirabegron [Myrbetriq] 25 mg PO DAILY 11/28/17 07/22/19 History Niacin [Slo-Niacin] 250 mg PO HS 11/28/17 07/22/19 History Potassium Chloride [K-Tab ER 20 20 meq PO DAILY 11/28/17 07/22/19 History mEq] Temazepam [Restoril] 15 mg PO HS 11/28/17 07/22/19 History hydroCHLOROthiazide 12.5 mg PO QODHS 11/28/17 07/22/19 History [Hydrochlorothiazide 12.5mg Tab] Amlodipine Besylate [Norvasc 5mg 5 mg PO DAILY 01/05/19 07/22/19 History tablet] Fenofibrate Nanocrystallized 145 mg PO DAILY 01/06/19 07/22/19 History [Fenofibrate] Lisinopril [Lisinopril 20mg Tab] 20 mg PO DAILY 01/06/19 07/22/19 History Omeprazole [Omeprazole 40mg 40 mg PO DAILY 01/06/19 07/22/19 History Capsule] Rivaroxaban [Xarelto 10mg tablet] 10 mg PO DAILY 07/22/19 07/22/19 History Allergies Allergy/AdvReac Type Severity Reaction Status Date / Time No Known Allergies Allergy Verified 07/22/19 21:44 Exam Vital signs and Labs for Last 24 Hours: Temp Pulse Resp BP Pulse Ox 97.7 F 50 L 18 143/86 H 97 07/23/19 04:00 07/23/19 06:06 07/23/19 06:06 07/23/19 06:06 07/23/19 06:06 Laboratory Results - last 24 hr 07/22/19 21:40: WBC 5.6, RBC 4.98, Hgb 14.8, Hct 48.4, MCV 97.3 H, MCH 29.7, MCHC 30.5 L, RDW 16.0, Plt Count 262, MPV 8.0, Neut % (Auto) 56.3, Lymph % (Auto) 28.0, [place] % (Auto) 8.5, Eos % (Auto) 6.4, Baso % (Auto) 0.7, Neut # (Auto) 3.1, Lymph # (Auto) 1.6, [place] # (Auto) 0.5, Eos # (Auto) 0.4, Baso # (Auto) 0.0 07/22/19 21:40: Sodium 144, Potassium 3.6, Chloride 108 H, Carbon Dioxide 29, Anion Gap 10.6, BUN 19 H, Creatinine 1.64 H, Estimated Creat Clear 48, Estimated GFR 41 L, Est GFR ( Amer) 50 L, Glucose 147 H, Calcium 8.9, Troponin I < 0.02, Amylase 51, Lipase 231 07/22/19 21:40: PT 11.6, INR 1.12 H, APTT 26.4 07/23/19 02:10: Troponin I < 0.02 07/23/19 05:23: Troponin I < 0.02 07/23/19 05:23: WBC 4.9, RBC 4.68, Hgb 13.8 L, Hct 45.2, MCV 96.5 H, MCH 29.5, MCHC 30.5 L, RDW 16.0, Plt Count 225, MPV 8.1, Neut % (Auto) 52.3, Lymph % (Auto) 32.2, [place] % (Auto) 8.5, Eos % (Auto) 6.4, Baso % (Auto) 0.6, Neut # (Auto) 2.6, Lymph # (Auto) 1.6, [place] # (Auto) 0.4, Eos # (Auto) 0.3, Baso # (Auto) 0.0 07/23/19 05:23: Sodium 145, Potassium 3.6, Chloride 111 H, Carbon Dioxide 27, Anion Gap 10.6, BUN 17, Creatinine 1.49 H, Estimated Creat Clear 51, Estimated GFR 46 L, Est GFR ( Amer) 56 L, Glucose 94 D, Calcium 9.0, Magnesium 1.8 I & O for Last 24 hours: Intake & Output 07/20/19 07/21/19 07/22/19 07/23/19 11:59 11:59 11:59 11:59 Intake Total 580 / 580 Output Total 400 / 400 Balance 180 / 180 Weight 186 lb 12.8 oz - Constitutional no acute distress - *Routine HEENT Exam Head: Present: normocephalic Eye: Present: EOMI, PERRL ENT: Present: mucous membranes moist - *Routine Neck Exam Present: supple. Absent: lymphadenopathy - *Routine Respiratory Exam Present: CTA bilaterally - *Routine Cardiovascular Exam Present: RRR, bradycardia - *Routine Abdominal Exam Present: soft, normoactive bowel sounds. Absent: tenderness - *Routine Extremities Exam Absent: cyanosis, clubbing, edema - *Routine Skin Exam Present: warm. Absent: rash - *Routine Neurological Exam Present: alert, oriented X3 H&P: Result - Impressions CXR - No change with no acute finding. Hiatal hernia Assessment and Plan (1) Unstable angina pectoris Current visit: Yes Status: Acute Category: Medical Code(s): I20.0 - Unstable angina (2) HTN (hypertension) Current visit: Yes Status: Acute Qualifiers: Hypertension type: essential hypertension Qualified Code(s): I10 - Essential (primary) hypertension Category: Medical Code(s): I10 - Essential (primary) hypertension (3) Renal insufficiency Current visit: Yes Status: Chronic Category: Medical Code(s): N28.9 - Disorder of kidney and ureter, unspecified (4) Coronary artery disease Current visit: No Status: Acute Category: Medical Code(s): I25.10 - Atherosclerotic heart disease of [place] coronary artery without angina pectoris (5) Hyperlipidemia Current visit: No Status: Acute Category: Medical Code(s): E78.5 - Hyperlipidemia, unspecified (6) History of pulmonary embolism Current visit: Yes Status: Acute Category: Medical Code(s): Z86.711 - Personal history of pulmonary embolism - Assessment and plan all Dx Assessment and Plan for all problems:: Cardiology has ordered an echo and a heart cath will be scheduled today.
[2019-07-24 07:21] LABS: Basophils % 0.7 % (0.1-2.0); Eosinophils # 0.3 K/mm3 (0.0-0.4); Eosinophils % 6.1 % (0.1-12.0); Hematocrit 44.8 % (42.0-52.0); Hemoglobin 13.7 g/dL (14.1-18.0); Lymphocytes # 1.3 K/mm3 (0.7-4.5); Lymphocytes % 23.4 % (10-50); Mean Corpuscular HGB Conc 30.5 g/dL (31.8-35.4); Mean Corpuscular Volume 97.5 fl (80-94); Mean Platelet Volume 8.4 fl (7.4-10.4); Monocytes # 0.5 K/mm3 (0.1-1.0); Monocytes % 9.6 % (1.7-9.3); Neutrophils # 3.3 K/mm3 (1.8-7.8); Neutrophils % 60.3 % (37.0-80.0); Platelet Count 221 K/mm3 (142-424); Red Blood Count 4.59 M/mm3 (4.60-6.20); White Blood Count 5.5 K/mm3 (4.8-10.8)
[2019-07-24 07:35] LABS: Anion Gap 12.6 mEq/L (5-15); Calcium 8.8 mg/dL (8.5-10.1)
--- NOTE | 2019-07-24 08:00 | Progress Note ---
Subjective Date: 07/24/19 Time: 07:58 Principal diagnosis: chest pain Interval history: 74-year-old white male in bed in no acute distress. Cardiac cath report is still pending however the patient did not receive stents and states that he was told that the cath report looked good. Focus of his chest pain has turned to GI etiology. Exam Vital signs and Labs for Last 24 Hours: Temp Pulse Resp BP Pulse Ox 98.1 F 55 L 19 151/86 H 95 07/24/19 04:00 07/24/19 04:00 07/24/19 04:00 07/24/19 04:00 07/24/19 04:00 Laboratory Results - last 24 hr 07/24/19 05:46: WBC 5.5, RBC 4.59 L, Hgb 13.7 L, Hct 44.8, MCV 97.5 H, MCH 29.7, MCHC 30.5 L, RDW 16.0, Plt Count 221, MPV 8.4, Neut % (Auto) 60.3, Lymph % (Auto) 23.4, [place] % (Auto) 9.6 H, Eos % (Auto) 6.1, Baso % (Auto) 0.7, Neut # (Auto) 3.3, Lymph # (Auto) 1.3, [place] # (Auto) 0.5, Eos # (Auto) 0.3, Baso # ( Auto) 0.0 07/24/19 05:46: Sodium 145, Potassium 3.6, Chloride 111 H, Carbon Dioxide 25, Anion Gap 12.6, BUN 15, Creatinine 1.38 H, Estimated Creat Clear 57, Estimated GFR 50 L, Est GFR ( Amer) 61, Glucose 93, Calcium 8.8 I & O for Last 24 hours: Intake & Output 07/21/19 07/22/19 07/23/19 07/24/19 11:59 11:59 11:59 11:59 Intake Total 580 / 580 1979 Output Total 400 / 400 Balance 180 / 180 1979 Weight 186 lb 12.8 oz 190 lb 8 oz - *Routine Respiratory Exam Present: CTA bilaterally. Absent: accessory muscle use, rales, rhonchi, wheezes - *Routine Cardiovascular Exam Present: RRR. Absent: murmur, gallop, rubs Progress Note: A&P (1) Unstable angina pectoris Status: Acute Current Visit: Yes (2) HTN (hypertension) Status: Acute Current Visit: Yes (3) Renal insufficiency Status: Chronic Current Visit: Yes (4) Coronary artery disease Status: Acute Current Visit: No (5) Hyperlipidemia Status: Acute Current Visit: No (6) History of pulmonary embolism Status: Acute Current Visit: Yes Assessment and Plan for All Diagnoses:: 1. Coronary artery disease, stable by cardiac cath. Continue current medical therapy including aspirin, metoprolol, lisinopril, Norvasc, niacin and statin therapy. 2. Chest pain likely related to hiatal hernia and/or esophageal stricture, work-up per Dr. Dye 3. Patient can be discharged from cardiology standpoint with follow-up in 1 to 2 weeks.
--- NOTE | 2019-07-24 08:51 | Progress Note ---
Internal Medicine - PN: Subj *Date: 07/24/19 *Time: 08:47 Interval history: He feels well. His cardiac cath was negative. We have initiated metoclopramide to see if this helps his symptoms regarding his hiatal hernia. His blood pressure is a bit high this morning. We will discharge him with the addition of metoclopramide to his regular medicines. Follow-up will be in the office [facility] soon. Exam Vital signs and Labs for Last 24 Hours: Temp Pulse Resp BP Pulse Ox 98.1 F 62 19 151/86 H 96 07/24/19 04:00 07/24/19 07:57 07/24/19 04:00 07/24/19 04:00 07/24/19 07:57 Laboratory Results - last 24 hr 07/24/19 05:46: WBC 5.5, RBC 4.59 L, Hgb 13.7 L, Hct 44.8, MCV 97.5 H, MCH 29.7, MCHC 30.5 L, RDW 16.0, Plt Count 221, MPV 8.4, Neut % (Auto) 60.3, Lymph % (Auto) 23.4, [place] % (Auto) 9.6 H, Eos % (Auto) 6.1, Baso % (Auto) 0.7, Neut # (Auto) 3.3, Lymph # (Auto) 1.3, [place] # (Auto) 0.5, Eos # (Auto) 0.3, Baso # (Auto) 0.0 07/24/19 05:46: Sodium 145, Potassium 3.6, Chloride 111 H, Carbon Dioxide 25, Anion Gap 12.6, BUN 15, Creatinine 1.38 H, Estimated Creat Clear 57, Estimated GFR 50 L, Est GFR ( Amer) 61, Glucose 93, Calcium 8.8 I & O for Last 24 hours: Intake & Output 07/21/19 07/22/19 07/23/19 07/24/19 11:59 11:59 11:59 11:59 Intake Total 580 / 580 1979 Output Total 400 / 400 Balance 180 / 180 1979 Weight 186 lb 12.8 oz 190 lb 8 oz - Constitutional no acute distress - *Routine HEENT Exam Head: Present: normocephalic Eye: Present: PERRL ENT: Present: mucous membranes moist - *Routine Respiratory Exam Present: CTA bilaterally - *Routine Cardiovascular Exam Present: RRR (No ectopics) - *Routine Abdominal Exam Present: soft. Absent: tenderness - *Routine Extremities Exam Absent: edema (SULEMA stockings) - *Routine Skin Exam Present: intact (Tattoos) - *Routine Neurological Exam Present: alert, oriented X3 Assessment and Plan (1) Chest pain Current visit: No Status: Acute Qualifiers: Chest pain type: precordial pain Qualified Code(s): R07.2 - Precordial pain Category: Medical Code(s): R07.9 - Chest pain, unspecified (2) Hiatal hernia Current visit: Yes Status: Chronic Category: Medical Code(s): K44.9 - Diaphragmatic hernia without obstruction or gangrene (3) Unstable angina pectoris Current visit: Yes Status: Acute Category: Medical Code(s): I20.0 - Unstable angina (4) HTN (hypertension) Current visit: Yes Status: Acute Qualifiers: Hypertension type: essential hypertension Qualified Code(s): I10 - Essential (primary) hypertension Category: Medical Code(s): I10 - Essential (primary) hypertension (5) Renal insufficiency Current visit: Yes Status: Chronic Category: Medical Code(s): N28.9 - Disorder of kidney and ureter, unspecified (6) Coronary artery disease Current visit: No Status: Acute Category: Medical Code(s): I25.10 - Atherosclerotic heart disease of [place] coronary artery without angina pectoris (7) Hyperlipidemia Current visit: No Status: Acute Category: Medical Code(s): E78.5 - Hyperlipidemia, unspecified (8) History of pulmonary embolism Current visit: Yes Status: Acute Category: Medical Code(s): Z86.711 - Personal history of pulmonary embolism - Assessment and plan all Dx Assessment and Plan for all problems:: discharge. Office follow-up
--- NOTE | 2019-07-24 09:32 | Discharge Summary ---
General - General Admission date:: 07/22/19 Discharge date: 07/24/19 HPI HPI: Mr. Gallardo was a 74-year-old white male with prior history of [place] in 2005 who presented to the emergency department after he began having a substernal burning type chest pain that had been recurrent over the prior 3 to 4 days. His stated it seemed to be worse with exertion and with eating. He had experienced the same symptoms with his heart attack in 2005. The symptoms would last up to half an hour but he denied any associated nausea, vomiting, diaphoresis, or radiation of pain. EKG showed sinus bradycardia in the 50s with no acute ST segment changes. Poor R wave progression was noted. Troponins returned normal x3. Cardiology was consulted for further evaluation and treatment. They felt the patient would need a heart cath. Of note the patient did have a history of esophageal stricture with dilatation on 2 separate occasions as well as a hiatal hernia. He also had nitroglycerin tablets but never took them. Hospital Course Hospital Course: He was admitted and underwent Echo and heart cath. There was no cardiac etiology for his chest pain identified. He was started on metoclopramid and his chest discomfort resolved. It was felt that he was stable to be discharged home on current medications and followup with Dr. Dye for GI workup, as well as with cardiology in 1-2 weeks. Objective Vital signs: Temp Pulse Resp BP Pulse Ox 98.0 F 59 L 22 143/83 H 95 07/24/19 08:00 07/24/19 08:00 07/24/19 08:00 07/24/19 08:00 07/24/19 08:00 Results Labs on day of discharge: Labs from last 24 hours 07/24/19 07/24/19 05:46 05:46 WBC 5.5 RBC 4.59 L Hgb 13.7 L Hct 44.8 MCV 97.5 H MCH 29.7 MCHC 30.5 L RDW 16.0 Plt Count 221 MPV 8.4 Neut % (Auto) 60.3 Lymph % (Auto) 23.4 [place] % (Auto) 9.6 H Eos % (Auto) 6.1 Baso % (Auto) 0.7 Neut # (Auto) 3.3 Lymph # (Auto) 1.3 [place] # (Auto) 0.5 Eos # (Auto) 0.3 Baso # (Auto) 0.0 Sodium 145 Potassium 3.6 Chloride 111 H Carbon Dioxide 25 Anion Gap 12.6 BUN 15 Creatinine 1.38 H Estimated Creat Clear 57 Estimated GFR 50 L Est GFR ( Amer) 61 Glucose 93 Calcium 8.8 DS: Diagnosis - Discharge Diagnosis (1) Chest pain Status: Acute (2) Hiatal hernia Status: Chronic (3) Unstable angina pectoris Status: Acute (4) HTN (hypertension) Status: Acute (5) Renal insufficiency Status: Chronic (6) Coronary artery disease Status: Acute (7) Hyperlipidemia Status: Acute (8) History of pulmonary embolism Status: Acute Discharge Plan - Patient Discharge Instructions ACTIVITY: Continue current activity DIET: advance to your usual diet Patient Instructions: Angina, Echocardiogram, DI for Angina, DI for Chest Pain - Follow up Plan Follow up with: Neville Dye MD [Primary Care Provider] - 07/29/19 2:00 pm Ej Mantilla MD [Staff Physician] - 08/04/19 11:10 am (please bring all medicines to cardiology appointment) Disposition: Home, Self-Usp Medications: Home Medications Medication Instructions Recorded Confirmed Type Aspirin [Aspir 81] 81 mg PO DAILY 11/28/17 07/22/19 History Atorvastatin Calcium [Atorvastatin 80 mg PO HS 11/28/17 07/22/19 History 80mg Tab] Citalopram Hydrobromide [Celexa 20 mg PO DAILY 11/28/17 07/22/19 History 20mg Tablet] Metoprolol Tartrate [Lopressor 100 mg PO DAILY 11/28/17 07/22/19 History 100mg Tablet] Mirabegron [Myrbetriq] 25 mg PO DAILY 11/28/17 07/22/19 History Niacin [Slo-Niacin] 250 mg PO HS 11/28/17 07/22/19 History Potassium Chloride [K-Tab ER 20 20 meq PO DAILY 11/28/17 07/22/19 History mEq] Temazepam [Restoril] 15 mg PO HS 11/28/17 07/22/19 History hydroCHLOROthiazide 12.5 mg PO QODHS 11/28/17 07/22/19 History [Hydrochlorothiazide 12.5mg Tab] Amlodipine Besylate [Norvasc 5mg 5 mg PO DAILY 01/05/19 07/22/19 History tablet] Fenofibrate Nanocrystallized 145 mg PO DAILY 01/06/19 07/22/19 History [Fenofibrate] Lisinopril [Lisinopril 20mg Tab] 20 mg PO DAILY 01/06/19 07/22/19 History Omeprazole [Omeprazole 40mg 40 mg PO DAILY 01/06/19 07/22/19 History Capsule] Rivaroxaban [Xarelto 10mg tablet] 10 mg PO DAILY 07/22/19 07/22/19 History Metoprolol Tartrate [Lopressor 100 50 mg PO HS 07/23/19 07/23/19 History mg Tablets] Metoclopramide HCl [Reglan 5mg 5 mg PO AC #60 tab 07/24/19 Rx Tablet] Prescriptions/Medication Reconciliation: New Metoclopramide HCl [Reglan 5mg Tablet] 5 mg PO AC #60 tab Continued Potassium Chloride [K-Tab ER 20 mEq] 20 meq PO DAILY Niacin [Slo-Niacin] 250 mg PO HS Mirabegron [Myrbetriq] 25 mg PO DAILY hydroCHLOROthiazide [Hydrochlorothiazide 12.5mg Tab] 12.5 mg PO QODHS Citalopram Hydrobromide [Celexa 20mg Tablet] 20 mg PO DAILY Atorvastatin Calcium [Atorvastatin 80mg Tab] 80 mg PO HS Aspirin [Aspir 81] 81 mg PO DAILY Omeprazole [Omeprazole 40mg Capsule] 40 mg PO DAILY Fenofibrate Nanocrystallized [Fenofibrate] 145 mg PO DAILY Rivaroxaban [Xarelto 10mg tablet] 10 mg PO DAILY Metoprolol Tartrate [Lopressor 100 mg Tablets] 50 mg PO HS Metoprolol Tartrate [Lopressor 100mg Tablet] 100 mg PO DAILY Temazepam [Restoril] 15 mg PO HS Amlodipine Besylate [Norvasc 5mg tablet] 5 mg PO DAILY Lisinopril [Lisinopril 20mg Tab] 20 mg PO DAILY - Problem Reconciliation Problems Reviewed?: Yes
--- NOTE | 2019-07-24 12:13 | Electrocardiograph Report ---
APPROVED REPORT Exam: Resting ECG HR:59 bpm ECG Measurements Heart Rate 59 AXES [place] 180 P 5 QRSd 114 QRS -26 QT 448 T76 QTc 443 <Conclusion> Sinus bradycardia,LAD Otherwise normal ECG Electronically signed by : Raghav Bae, 07/24/2019 12:13:22
--- NOTE | 2019-07-24 14:25 | Cardiology Report ---
APPROVED REPORT EXAM: Comprehensive 2D, Doppler, and color-flow Echocardiogram Paper Tube Grader: Naye Funk RDCS Ht: 5 ft 6 in Wt: 191lbs BSA: 1.96 BP: 138/74 mmHg Indications: Chest Pain, CAD, Hyperlipidemia, Cardiomyopathy, Hypertension/HDD 2D Dimensions LVOT 1.90 cm (M/F) 1.5-2.5 M-Mode Dimensions RVDd 2.40 cm (0.9-2.6)LA Diam 2.70 cm (1.9-4.0) LVDd 5.20 cm (3.5-5.7)Ao Diam 3.40 cm (2.0-3.7) LVDs 3.70 cm (3.5-5.7)AV Cusp 1.00 cm (1.5-2.6) IVSd 1.00 cm (0.6-1.1)PWd 1.00 cm (0.6-1.1) EF (Teich) 55.30% FS 28.80% EDV (Teich) 130.00 mLESV (Teich) 58.10 mL LV Diastology E/A Ratio 1.1MED E' 4.78 (< 7 cm/sec) E'/MED E' Ratio17.60 (>14)LAT E' 5.46 (<10 cm/sec) E/LAT E' Ratio 15.40 (>14) Aortic Valve AI PHT 748.00 ms Mitral Valve MV E Max Arnulfo. 83.90 (40-130 cm/s)MV A Velocity 74.00 (40-130 cm/s) E/A Ratio 1.10 Left Ventricle Left atrium is mildly enlarged, left ventricle is normal size, mild concentric left ventricular hypertrophy, visually estimated ejection fraction 55% with no regional wall motion abnormality, grade 1 diastolic dysfunction seen with tissue Doppler evidence of raise left atrial pressure. Right Ventricle Right atrium right ventricular normal size and contractility. Aortic Valve Aortic valve is minimally thickened and fibrosed, there is no aortic stenosis, there is mild aortic insufficiency. Mitral Valve Mitral valve is grossly normal, there is no mitral stenosis, there is mild mitral regurgitation. Tricuspid Valve Tricuspid valve is grossly normal, there is mild tricuspid regurgitation, tricuspid regurgitation jet velocity is inadequate for calculation of the right ventricular systolic pressure. Pulmonic Valve Pulmonic valve is poorly visualized. Great Vessels Aortic root is normal size. Pericardium No significant pericardial effusion noted. Conclusion 1. Mildly enlarged left atrium, normal left ventricular size, mild concentric left ventricular hypertrophy, visually estimated ejection fraction 55% with no regional wall motion abnormality, grade 1 diastolic dysfunction seen with tissue Doppler evidence of raise left atrial pressure. 2. Mild aortic, mild mitral and tricuspid regurgitation. 3. No significant pericardial effusion noted. Electronically signed by : Carlo Harrison, 07/24/2019 14:24:46
== END 2019-07-24 10:15 | disposition home or self-care (01) ==
LOC: ER 21:34 → 2ND 21:34
PROVIDERS: ADMIT Family Medicine; ATTEND Family Medicine
CPT/HCPCS: 36415; 71020; 71046; 80048; 82150; 83690; 83735; 84484; 85025; 85610; 85730; 93005; 93306; 93458; 99152; 99284; C1725; C1769; G0378; J1644; Q9967

== ENCOUNTER → 2020-03-14 16:35 | Outpatient (CLI) | payer MEDICARE, MEDICAID, SELFPAY ==
--- NOTE | 2020-03-14 | XR_ITS ---
PROCEDURE: XR CHEST 2V CLINICAL HISTORY: HISTORY OR PULMONARY EMBOLISM Shortness of breath COMPARISON: [facility] CT angio chest from 11/28/2017 CXR2V XR chest 2V from 12/02/2017 CXR2V XR chest 2V from 01/05/2019 XR CHEST 2V from 07/22/2019 FINDINGS: The cardiomediastinal silhouette and pulmonary vascularity are within normal limits. There is a moderate-sized hiatal hernia. There is some lobulation along the left hemidiaphragm at the junction of the cardiac apex possibly due to summation of the heart rib and diaphragm. No definite lobar consolidation or collapse evident. No acute bony anomaly IMPRESSION: Moderate-sized hiatal hernia. No definite acute finding. Dictated by: Francisco Javier Mathews MD 03/14/2020 21:12 Electronically signed by Francisco Javier Mathews MD in [place] 03/14/2020 21:12
== END ==
PROVIDERS: PCP Family Medicine; Visit Provider Family Medicine
DX: Z86.711 Personal history of pulmonary embolism (principal)
CPT/HCPCS: 71046

== ENCOUNTER → 2021-07-14 16:55 | Outpatient (CLI) | payer MEDICARE, MEDICAID, SELFPAY | PROVIDERS: PCP Nurse Practitioner Family; Visit Provider Nurse Practitioner | DX: Z20.822 Contact with and (suspected) exposure to COVID-19 (principal) | CPT/HCPCS: C9803; U0003; U0005 ==

== ENCOUNTER → 2021-07-18 10:58 | Outpatient (CLI) | payer MEDICARE, MEDICAID, SELFPAY | PROVIDERS: PCP Family Medicine; Visit Provider Nurse Practitioner | DX: Z20.822 Contact with and (suspected) exposure to COVID-19 (principal) | CPT/HCPCS: C9803; U0003; U0005 ==

== ENCOUNTER 2021-10-29 14:19 | Emergency (ER) | payer MEDICARE, MEDICAID, SELFPAY ==
[2021-10-29 16:40] VITALS: BP 188/103; PULSE 58; RESP 20; TEMP 37.1; O2SAT 96; BMI 38.0
--- NOTE | 2021-10-29 16:45 | HMH.EDUTC ---
[facility] [place] Clinical Impression: Bronchitis Sinusitis Qualifiers: Sinusitis location: unspecified location Chronicity: acute Recurrence: non-recurrent Qualified Code(s): J01.90 - Acute sinusitis, unspecified Disposition: Home, Self-Care Condition on Discharge: Good Instructions: DI for Sinusitis Additional Instructions: Drink plenty of fluids. Take tylenol or ibuprofen for pain or fever. Take the medications as directed. Follow up with your regular doctor. GO TO THE ER FOR ANY WORSENING SYMPTOMS Quarantine until you know the results of your covid-19 test. If it is positive, the health department should call you and give you further instructions about your length of Quarantine and other things. Notify your school or workplace of your results and follow their instructions regarding return to work/school. The cough medication (promethazine dm) will make you drowsy, so don't drive or operate heavy machinery after taking it. The cough medication could make you unsteady on your feet. Be very careful and do not fall. Only use it at bed time when you will be going to sleep. Prescriptions: Promethazine/Dextromethorphan [Promethazine-Dm Syrup] 5 ml PO Q6HP PRN #240 ml PRN Reason: Cough Transmission Status: Pending to [facility] Benzonatate [Benzonatate 100mg cap] 100 mg PO TIDP PRN #30 cap PRN Reason: Cough Transmission Status: Pending to [facility] methylPREDNISolone [Medrol] 4 mg PO DIRECTED 6 Days #21 packet Transmission Status: Pending to [facility] Azithromycin [Z-Greyson 250mg Tab*] 250 mg PO UD DOSE PK #6 tab Transmission Status: Pending to [facility] Referrals: Neville Dye MD [Primary Care Provider] - Time of Disposition: 17:15 Medical Decision Making - Medical Records Medical records reviewed: No: I reviewed the patient's medical records. - Santino Inquiry Pt receiving controlled substance: No Vital Signs: 10/29/21 16:40 Temperature 98.8 F Temperature Source Oral Pulse Rate [Left] 58 L Respiratory Rate 20 Blood Pressure [Right Arm] 188/103 H Blood Pressure Mean [Right Arm] 131 02 Sat by Pulse Oximetry 96 - Lab Data Lab results reviewed: Yes: I reviewed the patient's lab results. Lab Results 10/29/21 17:05: Strep Scn [facility] Negative 10/29/21 17:06: Influenza Type A Ag Negative, Influenza Type B Ag Negative Orders (Tests/Meds): ED MEDICATIONS Discontinued Medications Generic Name Dose Route Start Last Admin Trade Name [place]ia PRN Reason Stop Dose Admin Ceftriaxone Sodium 1 gm 10/29/21 17:10 Ceftriaxone 1gm Vial IM 10/29/21 17:11 ONCE ONE Lidocaine HCl 0 ml 10/29/21 17:10 Lidocaine 1% 5ml Pf Vial IM 10/29/21 17:11 ONCE ONE Methylprednisolone Sodium Succinate 125 mg 10/29/21 17:10 Methylprednisolone Sod Succ 125mg Vial IM 10/29/21 17:11 ONCE ONE ORDERS Category Date Time Status Covid-19 Nasal PCR ([facility]) Routine Lab 10/29/21 17:04 Ordered Strep Screen Confirmation Routine Micro 10/29/21 17:05 Received [facility] [place] - General Stated complaint: sore throat, cough Time Seen by Provider: 10/29/21 16:46 Mode of Arrival: Ambulatory Source of Information: Patient, Spouse Limitations: No Limitations Description of Symptoms (Recalled from Triage Doc. by RN): pt c/o a cough, sore throat and nasal drainage x2 days. HEENT Symptoms (Recalled from RN notes): Yes (nasal drainage and sore throat) Resp Symptoms (Recalled from RN notes): Yes (cough) Skin Symptoms (Recalled from RN notes): No MS Symptoms (Recalled from RN notes): No Functional Status (Recalled from RN notes): wnl - History of Present Illness Provider Complaint: He c/o sinus congestion, chest congestion, sore throat for the past 2 days. - Related Data Home Medications Medication Instructions Recorded Confirmed Aspirin [Aspir 81] 81 mg PO DAILY 11/28/17 08/14/19 Atorvastatin Calcium [Lipitor 80mg 80 mg PO
[2021-10-29 17:07] LABS: UTC Influenza A Antigen Negative (Negative); UTC Influenza B Antigen Negative (Negative)
[2021-10-29 17:08] LABS: UTC Strep Screen (Rapid) Negative (Negative)
[2021-10-29 17:20] VITALS: BP 188/103; PULSE 63; RESP 18; TEMP 36.9
== END 2021-10-29 17:34 | disposition home or self-care (01) ==
PROVIDERS: Emergency Provider Nurse Practitioner Family; PCP Family Medicine
DX: J20.9 Acute bronchitis, unspecified (principal); J01.90 Acute sinusitis, unspecified; I25.10 Atherosclerotic heart disease of native coronary artery without angina pectoris; K21.9 Gastro-esophageal reflux disease without esophagitis; E03.9 Hypothyroidism, unspecified; Z20.822 Contact with and (suspected) exposure to COVID-19
CPT/HCPCS: G0463; 87804; 87880; 96372; 99202; C9803; J0696; U0003; U0005

== ENCOUNTER 2021-12-28 17:52 | Emergency (ER) | payer MEDICARE, MEDICAID, SELFPAY ==
[2021-12-28 18:03] VITALS: BP 180/87; PULSE 78; RESP 18; TEMP 37.7; O2SAT 95; BMI 29.7
--- NOTE | 2021-12-28 18:11 | CT_ITS ---
PROCEDURE INFORMATION: Exam: CT Abdomen And Pelvis Without Contrast Exam date and time: 12/28/2021 6:11 PM Age: 76 years old Clinical indication: Abdominal pain; Flank; Left; Additional info: Left flank pain TECHNIQUE: Imaging protocol: Computed tomography of the abdomen and pelvis without contrast. Radiation optimization: All CT scans at this facility use at least one of these dose optimization techniques: automated exposure control; mA and/or kV adjustment per patient size (includes targeted exams where dose is matched to clinical indication); or iterative reconstruction. COMPARISON: ABDPELW CT abdomen pelvis w con 12/01/2017 6:29 PM FINDINGS: Lungs: Minimal bibasilar atelectasis or scarring. Heart: Calcification of the aortic valve annulus. Diaphragm: Moderate-sized hiatal hernia. Liver: Normal. Gallbladder and bile ducts: Normal Pancreas: Normal. Spleen: Normal. Adrenal glands: Normal. No mass. Kidneys and ureters: Left hydroureteronephrosis, with obstructive 2 mm calculus within the left posterior urinary bladder, near the left UVJ (series 3, image 99). Minimal scarring laterally and posterior aspect of the right renal midpole. Stomach and bowel: Colonic diverticulosis. Appendix: Appendix is normal. Intraperitoneal space: Unremarkable. No free air. No significant fluid collection. Vasculature: Atherosclerotic disease of the abdominal aorta and iliac arteries. Lymph nodes: Unremarkable. No enlarged lymph nodes. Urinary bladder: Minimal urinary bladder wall thickening, with adjacent fat stranding, suggesting cystitis. Reproductive: Prostate gland is enlarged, measuring approximately 5 cm in AP diameter. Bones/joints: Mild degenerative changes of the hips and sacroiliac joints. Multilevel thoracolumbar spine degenerative disc space narrowing and osteophyte formation, with mild dextroscoliosis of the lumbar spine. Bilateral L5 pars defect. Soft tissues: Small fat containing left inguinal hernia, without acute complications. Small fat containing umbilical hernia. IMPRESSION: 1. Left hydroureteronephrosis, with obstructive 2 mm calculus within the left posterior urinary bladder, near the left UVJ (series 3, image 99). 2. Minimal urinary bladder wall thickening, with adjacent fat stranding, suggesting cystitis.
[2021-12-28 18:12] VITALS: BMI 29.7
[2021-12-28 19:03] LABS: Basophils # 0.1 K/mm3 (0-0.2); Basophils % 0.5 % (0.1-2.0); Eosinophils # 0.2 K/mm3 (0.0-0.4); Eosinophils % 1.6 % (0.1-12.0); Hematocrit 48.5 % (42.0-52.0); Hemoglobin 15.5 g/dL (14.1-18.0); Lymphocytes # 0.9 K/mm3 (0.7-4.5); Lymphocytes % 7.4 % (10-50); Mean Corpuscular HGB Conc 31.9 g/dL (31.8-35.4); Mean Corpuscular Hemoglobin 28.9 pg (27.0-31.2); Mean Corpuscular Volume 90.5 fl (80-94); Mean Platelet Volume 8.5 fl (7.4-10.4); Monocytes # 0.6 K/mm3 (0.1-1.0); Monocytes % 5.5 % (1.7-9.3); Neutrophils # 9.9 K/mm3 (1.8-7.8); Neutrophils % 84.9 % (37.0-80.0); Platelet Count 246 K/mm3 (142-424); Red Blood Count 5.36 M/mm3 (4.60-6.20); Red Cell Distribution Width 15.7 % (11.5-17.5); White Blood Count 11.6 K/mm3 (4.8-10.8)
--- NOTE | 2021-12-28 19:06 | HMH.EDABDPAI ---
ED Disposition Clinical Impression: Kidney stone on left side Disposition: Home, Self-Care Condition on Discharge: Good Instructions: DI for Kidney Stones Prescriptions: Hydrocod/Acet 5/325 mg [[place] 5/325mg tablet] 1 tab PO Q6HP PRN #10 tab PRN Reason: Moderate To Severe Pain Transmission Status: Sent to [facility] cephALEXin [Cephalexin 500mg Tab] 500 mg PO BID #14 tab Transmission Status: Pending to [facility] Tamsulosin HCl [Flomax 0.4mg capsule] 0.4 mg PO DAILY #10 cap Transmission Status: Pending to [facility] Referrals: Neville Dye MD [Primary Care Provider] - Cristian Saini [Physician] - - Critical Care Critical Care Time: No Attestation: On 12/28/21, the high probability of a clinically significant, sudden or life threatening deterioration of the following system(s) required my full and direct attention, intervention and personal management. The time I documented below is in addition to time spent performing reported procedures but includes the following listed in this critical care notation. Medical Decision Making - Medical Records Medical records reviewed: Yes: I reviewed the patient's medical records. - Santino Inquiry Pt receiving controlled substance: Yes Santino was queried for this patient: No Reason not queried -: Santino login issues Risks and benefits of using a controlled substance: were discussed with pt by me Vital Signs: 12/28/21 18:03 Temperature 99.8 F H Temperature Source Oral Pulse Rate [Radial] 78 Respiratory Rate 18 Blood Pressure [Right Arm] 180/87 H Blood Pressure Mean [Right Arm] 118 Blood Pressure Position [Right Arm] Sitting 02 Sat by Pulse Oximetry 95 Oxygen Delivery Method Room Air - Lab Data Lab Results 12/28/21 18:49: WBC 11.6 H, RBC 5.36, Hgb 15.5, Hct 48.5, MCV 90.5, MCH 28.9, MCHC 31.9, RDW 15.7, Plt Count 246, MPV 8.5, Neut % (Auto) 84.9 H, Lymph % (Auto) 7.4 L, [place] % (Auto) 5.5, Eos % (Auto) 1.6, Baso % (Auto) 0.5, Neut # (Auto) 9.9 H, Lymph # (Auto) 0.9, [place] # (Auto) 0.6, Eos # (Auto) 0.2, Baso # (Auto) 0.1 12/28/21 18:49: Sodium 143, Potassium 3.6, Chloride 108 H, Carbon Dioxide 27, Anion Gap 11.6, BUN 19, Creatinine 1.60 H, Estimated Creat Clear 47, Estimated GFR 42 L, Est GFR ( Amer) 51 L, Glucose 104 H, Calcium 9.9, Total Bilirubin 0.7, AST 29, ALT 26, Alkaline Phosphatase 63, Total Protein 7.0, Albumin 4.3, Globulin 2.7, Albumin/Globulin Ratio 1.6, Lipase 160 12/28/21 19:15: Urine Color Yellow, Urine Appearance Clear, Urine pH 6.0, Ur Specific [place] >= 1.030, Urine Protein Negative, Urine Glucose (UA) Negative, Urine Ketones Negative, Urine Blood 2+, Urine Nitrate Negative, Urine Bilirubin Negative, Urine Urobilinogen 0.2, Ur Leukocyte Esterase Negative, Urine RBC 10-20, Urine WBC 3-5, Ur Squamous Epith Cells Occasional, Urine Bacteria 1+ Result diagrams: 12/28/21 18:49 12/28/21 18:49 Orders (Tests/Meds): ED MEDICATIONS Generic Name Dose Route Start Last Admin Trade Name Freq PRN Reason Stop Dose Admin Sodium Chloride 1,000 mls @ 999 mls/hr 12/28/21 18:15 12/28/21 18:58 Sod Chlor 0.9% 1000ml Bag IV 12/28/21 19:15 999 mls/hr .Q1H1M ZAIDA Administration Discontinued Medications Generic Name Dose Route Start Last Admin Trade Name Freq PRN Reason Stop Dose Admin Acetaminophen/Codeine Phosphate 1 ming 12/28/21 20:08 Acetaminophen 300mg W/Codeine 30mg Take Home Pack (6) PO 12/28/21 20:09 ONCE ONE Morphine Sulfate 4 mg 12/28/21 18:11 12/28/21 18:58 Morphine 4mg/Ml Syringe IV 12/28/21 18:12 4 mg ONCE ONE Administration Morphine Sulfate 4 mg 12/28/21 19:38 12/28/21 19:40 Morphine 4mg/Ml Syringe IV 12/28/21 19:39 4 mg ONCE ONE Administration Ondansetron HCl 4 mg 12/28/21 18:11 12/28/21 18:58 Ondansetron 4mg/2ml Vial IV 12/28/21 18:12 4 mg ONCE ONE Administration - CT Data CT Scan: Abdomen, Pelvis Time Received: 19:[address] Reviewed:
[2021-12-28 19:08] LABS: Alanine Aminotransferase 26 U/L (12-78); Albumin Level 4.3 g/dl (3.5-5.0); Albumin/Globulin Ratio 1.6 (1.1-1.8); Alkaline Phosphatase 63 U/L (38-126); Anion Gap 11.6 mEq/L (5-15); Aspartate Amino Transferase 29 U/L (17-59); Bilirubin,Total 0.7 mg/dl (0.2-1.3); Blood Urea Nitrogen 19 mg/dl (9-20); Calcium 9.9 mg/dl (8.4-10.2); Carbon Dioxide 27 mmol/L (22.0-30.0); Chloride 108 mmol/L (98-107); Creatinine Clearance Estimated 47 mL/min (50-200); Estimated Glomerular Filt Rate 42 ml/min (>60); GFR (African American) 51 ML/MIN (>60); Globulin 2.7 g/dL (1.3-3.2); Glucose 104 mg/dl (74-100); Lipase 160 U/L (23-300); Potassium 3.6 mmoL/L (3.5-5.1); Sodium 143 mmol/L (136-145)
[2021-12-28 19:48] LABS: Microscopic, Urine URINE MICROSCOPIC (MICROSCOPIC)
[2021-12-28 19:57] LABS: Appearance,Urine CLEAR (Clear); Bilirubin,Urine Negative (Negative); Blood, Urine 2+ (Negative); Color,Urine YELLOW (Yellow); Glucose,Urine (UA) Negative (Negative); Ketones,Urine Negative (Negative); Leukocyte Esterase,Urine Negative (Negative); Nitrate,Urine Negative (Negative); Protein,Urine Negative (Negative); Specific Gravity, Urine >= 1.030 (1.005-1.030); Urobilinogen,Urine 0.2 EU/dl (0.2)
[2021-12-28 20:05] LABS: Bacteria,Urine 1+ /lpf; Squamous Epithelial Cell,Urine Occasional #/hpf (0-5)
[2021-12-28 20:48] VITALS: BP 170/80; PULSE 75; RESP 20; TEMP 36.8; O2SAT 99
== END 2021-12-28 20:51 | disposition home or self-care (01) ==
PROVIDERS: Emergency Provider Emergency Medicine; PCP Family Medicine
DX: N13.2 Hydronephrosis with renal and ureteral calculous obstruction (principal); I11.0 Hypertensive heart disease with heart failure; I50.9 Heart failure, unspecified; I48.91 Unspecified atrial fibrillation; I25.2 Old myocardial infarction; E78.5 Hyperlipidemia, unspecified; K21.9 Gastro-esophageal reflux disease without esophagitis; F32.A Depression, unspecified; F17.210 Nicotine dependence, cigarettes, uncomplicated; Z79.52 Long term (current) use of systemic steroids; Z79.899 Other long term (current) drug therapy; Z82.49 Family history of ischemic heart disease and other diseases of the circulatory system; Z83.3 Family history of diabetes mellitus
CPT/HCPCS: 74176; 80053; 81001; 83690; 85025; 96365; 96366; 96374; 96375; 96376; 99285; J0696; J2405

== ENCOUNTER → 2022-01-02 10:45 | Outpatient (CLI) | payer MEDICARE, MEDICAID, SELFPAY ==
--- NOTE | 2022-01-02 10:53 | CT_ITS ---
FINAL REPORT CLINICAL HISTORY: RENAL STONE COMPARISON: December 28, 2021 FINDINGS: Axial CT images of the abdomen and pelvis were obtained without intravenous contrast. Coronal reformatted images were also obtained.This study was performed with techniques to keep radiation doses as low as reasonably achievable (ALARA). Individualized dose reduction techniques using automated exposure control or adjustment of mA and/or kV according to the patient's size were employed. Abdomen: There is a moderate hiatal hernia. There is mild bibasilar atelectasis. There is improved left hydronephrosis. There is improved left perinephric stranding. The gallbladder is present. The liver, spleen and pancreas have an unremarkable, unenhanced appearance. No mass or adenopathy is seen. No inflammatory process is identified. There is a small umbilical hernia containing fat. Pelvis: The distal left ureteral stone is no longer identified. There is persistent stranding in the left iliac fossa. There is a left inguinal hernia containing fat. The prostate is enlarged. There are bilateral L5 pars defects. There is diverticulosis of the sigmoid colon. IMPRESSION: Improved left hydronephrosis and left perinephric stranding with persistent stranding in the left iliac fossa. Distal left ureteral stone no longer identified. Reviewed, Interpreted and Dictated by Trevor Fischer III, MD Transcribed by Jesse Robledo Authenticated by Trevor Fischer III, MD on 01/02/2022 12:29:34 PM [facility]
== END ==
PROVIDERS: PCP Family Medicine; Visit Provider Family Medicine
DX: N20.0 Calculus of kidney (principal)
CPT/HCPCS: 74176

== ENCOUNTER 2022-09-07 12:20 | Emergency (ER) | payer MEDICARE, MEDICAID, SELFPAY ==
[2022-09-07 13:55] VITALS: BP 144/86; PULSE 86; RESP 22; TEMP 37.9; O2SAT 96; BMI 31.4
--- NOTE | 2022-09-07 14:28 | EXP.UTC ---
Discharge Plan Disposition Patient Disposition: Home, Self-Care Condition: Good Prescriptions Prescriptions: No Action atorvastatin 80 MG Tablet 80 mg PO HS metoprolol tartrate [Lopressor] 100 MG Tablet 100 mg PO DAILY aspirin [Aspir-81] 81 MG Tablet.Dr 81 mg PO DAILY citalopram 20 MG Tablet 20 mg PO DAILY temazepam [Restoril] 15 MG Capsule 15 mg PO HS hydrochlorothiazide 12.5 MG Tablet 12.5 mg PO QODHS niacin [Slo-Niacin] 500 MG Tablet.Er 250 mg PO HS mirabegron [Myrbetriq] 25 MG Tab.Er.24h 25 mg PO DAILY potassium chloride [K-Tab] 20 MEQ Tablet.Er 20 meq PO DAILY amlodipine 5 MG Tablet 5 mg PO DAILY omeprazole 40 MG Capsule.Dr 40 mg PO DAILY lisinopril 20 MG Tablet 20 mg PO DAILY Label Comments: TAKE 1 TABLET ONCE A DAY fenofibrate nanocrystallized 145 MG Tablet 145 mg PO DAILY Label Comments: TAKE 1 TABLET ONCE A DAY rivaroxaban 10 MG tablet 10 mg PO DAILY metoprolol tartrate 100 MG tablet 50 mg PO HS azithromycin 250 MG tablet 250 mg PO UD DOSE PK Qty: 6 0RF Rx Instructions: Take two (2) tablets today, then one (1) tablet days #2 thru #5 methylprednisolone 4 MG tablets,dose pack 4 mg PO DIRECTED 6 Days Qty: 21 0RF benzonatate 100 MG capsule 100 mg PO TIDP PRN (Reason: Cough) Qty: 30 0RF promethazine-DM 120 ML syrup 5 ml PO Q6HP PRN (Reason: Cough) Qty: 240 0RF hydrocodone-acetaminophen 1 TAB tablet 1 tab PO Q6HP PRN (Reason: Moderate To Severe Pain) Qty: 10 0RF tamsulosin 0.4 MG capsule 0.4 mg PO DAILY Qty: 10 0RF cephalexin 500 MG tablet 500 mg PO BID Qty: 14 0RF Referrals Follow up/Referrals: Neville Dye MD [Primary Care Provider] - See instructions Activity Restrictions/Add. Instructions Additional Instructions/Restrictions: *Monitor Temp, Over the counter Motrin or Tylenol as directed/as needed Tylenol every 4 hours and Motrin every 6 hours (as long as your family doctor has told you that you can take it) for fever or pain. and straight to ER if unable to lower temp less than 101.0 after medication given *Warm salt water gargles may help to soothe the throat *Throat Lozenges? *Warm fluids like tea with honey may help to soothe the throat? *Sleep elevated *Humidifier/Vaporizer Follow up IMMEDIATELY for new or worsening symptoms or no Noticeable improvement over the next 48-72 hours. 911 for difficulty breathing or swallowing You were tested for today for COVID19 your test result should be back in the next 24-48 hours, you may check your results on the [facility] Clinical Impressions Clinical Impression: Viral syndrome Instructions Patient Instructions: DI for Viral Syndrome Discharge ED Provider: Josefina Buenrostro [facility] [place] General Stated complaint: Congestion,Cough Mode of Arrival: Ambulatory Source of Information: Patient Limitations: No Limitations Time Seen by Provider: 09/07/22 14:28 Description of Symptoms (Recalled from Triage Doc. by RN): PATIENT C/O FATIGUE AND COUGH SINCE YESTERDAY. RECENTLY EXPOSED TO COVID HEENT Symptoms (Recalled from RN notes): No Resp Symptoms (Recalled from RN notes): Yes Skin Symptoms (Recalled from RN notes): No MS Symptoms (Recalled from RN notes): No Functional Status (Recalled from RN notes): WNL History of Present Illness Provider Complaint: Patient states that he was recently around someone that has tested positive for COVID States that since yesterday he has started with cough, body aches, chills and feeling flu like symptoms so he came in to get tested Related Data Home Medications Medication Instructions Recorded Confirmed aspirin 81 mg tablet,delayed 81 mg PO DAILY HEART/CIRCULATION 11/28/17 08/14/19 release (Aspir-) atorvastatin 80 mg tablet 80 mg PO HS Cholesterol 11/28/17 08/14/19 citalopram 20 mg tablet 20 mg PO DAILY Depression
[2022-09-07 14:45] VITALS: BP 144/86; PULSE 86; RESP 22; TEMP 37.9; O2SAT 96
[2022-09-07 19:17] LABS: UTC Influenza A Antigen Negative (Negative); UTC Influenza B Antigen Negative (Negative)
== END 2022-09-07 14:47 | disposition home or self-care (01) ==
PROVIDERS: Emergency Provider Nurse Practitioner; PCP Family Medicine
DX: R05.9 Cough, unspecified (principal); R09.89 Other specified symptoms and signs involving the circulatory and respiratory systems; B34.9 Viral infection, unspecified
CPT/HCPCS: 87804; 99212; C9803; G0463; U0003; U0005

== ENCOUNTER 2022-11-10 14:39 | Emergency (ER) | payer MEDICARE, MEDICAID, SELFPAY ==
[2022-11-10 15:00] VITALS: BP 190/92; PULSE 63; RESP 20; TEMP 36.9; O2SAT 97; BMI 33.2
[2022-11-10 15:12] LABS: UTC Strep Screen (Rapid) Positive (Negative)
--- NOTE | 2022-11-10 15:31 | EXP.UTC ---
Discharge Plan Disposition Patient Disposition: Home, Self-Care Condition: Good Prescriptions Prescriptions: New amoxicillin 875 mg tablet 875 mg PO BID 10 Days Qty: 20 0RF No Action atorvastatin 80 MG tablet 80 mg PO HS metoprolol tartrate [Lopressor] 100 MG tablet 100 mg PO DAILY aspirin [Aspir-81] 81 MG tablet,delayed release (DR/EC) 81 mg PO DAILY citalopram 20 MG tablet 20 mg PO DAILY temazepam [Restoril] 15 MG capsule 15 mg PO HS niacin [Slo-Niacin] 500 MG tablet extended release 250 mg PO HS Myrbetriq 25 MG tablet extended release 24 hr 25 mg PO DAILY potassium chloride [K-Tab] 20 MEQ tablet extended release 20 meq PO DAILY amlodipine 5 MG tablet 5 mg PO DAILY lisinopril 20 MG tablet 20 mg PO DAILY Label Comments: TAKE 1 TABLET ONCE A DAY fenofibrate nanocrystallized 145 MG tablet 145 mg PO DAILY Label Comments: TAKE 1 TABLET ONCE A DAY rivaroxaban 10 MG tablet 10 mg PO DAILY metoprolol tartrate 100 MG tablet 50 mg PO HS donepezil 10 mg tablet 10 mg PO DAILY Label Comments: TAKE 1 TABLET 1 TIME EACH DAY AT BEDTIME carbidopa-levodopa 10-100 mg tablet 10 - 100 tab PO TID Label Comments: TAKE 1 TABLET 3 TIMES EACH DAY pramipexole 0.125 mg tablet 0.125 mg PO TID Label Comments: TAKE 1 TABLET IN THE MORNING AND TAKE 2 TABLETS AT BEDTIME. Referrals Follow up/Referrals: Neville Dye MD [Primary Care Provider] - See instructions Clinical Impressions Clinical Impression: Strep pharyngitis Instructions Patient Instructions: DI for Strep Throat Discharge ED Provider: Kaylynn Gruber [facility] [place] HPI General Stated complaint: sore throat,cough Mode of Arrival: Ambulatory Source of Information: Patient Limitations: No Limitations Time Seen by Provider: 11/10/22 15:23 Description of Symptoms (Recalled from Triage Doc. by RN): sore throat, cough, runny nose HEENT Symptoms (Recalled from RN notes): Yes Resp Symptoms (Recalled from RN notes): No Skin Symptoms (Recalled from RN notes): No MS Symptoms (Recalled from RN notes): No Functional Status (Recalled from RN notes): n/a History of Present Illness Provider Complaint: Pt states that for the last couple of days he has had a cough, sore throat, and runny nose. They have been around a lot of grandchildren. He has not taken anything for his symptoms. Related Data Home Medications Medication Instructions Recorded Confirmed aspirin 81 mg tablet,delayed 81 mg PO DAILY HEART/CIRCULATION 11/28/17 11/10/22 release (Aspir-) atorvastatin 80 mg tablet 80 mg PO HS Cholesterol 11/28/17 11/10/22 citalopram 20 mg tablet 20 mg PO DAILY Depression 11/28/17 11/10/22 metoprolol tartrate 100 mg tablet 100 mg PO DAILY High blood pressure 11/28/17 11/10/22 (Lopressor) mirabegron 25 mg tablet,extended 25 mg PO DAILY BLADDER 11/28/17 11/10/22 release 24 hr (Myrbetriq) niacin 500 mg tablet,extended 250 mg PO HS Cholesterol 11/28/17 11/10/22 release (Slo-Niacin) potassium chloride 20 mEq 20 meq PO DAILY POTASSIUM 11/28/17 11/10/22 tablet,extended release (K-Tab) REPLACEMENT temazepam 15 mg capsule (Restoril) 15 mg PO HS Insomnia 11/28/17 11/10/22 amlodipine 5 mg tablet 5 mg PO DAILY BLOOD PRESSURE 01/05/19 11/10/22 fenofibrate nanocrystallized 145 145 mg PO DAILY Cholesterol 01/06/19 11/10/22 mg tablet lisinopril 20 mg tablet 20 mg PO DAILY High blood pressure 01/06/19 11/10/22 rivaroxaban 10 mg tablet 10 mg PO DAILY Blood thinner 07/22/19 11/10/22 metoprolol tartrate 100 mg tablet 50 mg PO HS High blood pressure 07/23/19 11/10/22 carbidopa 10 mg-levodopa 100 mg 10 - 100 tab PO TID . 11/10/22 11/10/22 tablet donepezil 10 mg tablet 10 mg PO DAILY . 11/10/22 11/10/22 pramipexole 0.125 mg tablet 0.125 mg PO TID . 11/10/22 11/10/22 Previous Rx's Medication Instructions Recorded amoxicillin 875 mg tablet 875 mg
--- NOTE | 2022-11-10 15:55 | EXP.UTC ---
Discharge Plan Disposition Patient Disposition: Home, Self-Care Condition: Good Prescriptions Prescriptions: New amoxicillin 875 mg tablet 875 mg PO BID 10 Days Qty: 20 0RF benzonatate 100 mg capsule 100 mg PO TID PRN (Reason: cough) Qty: 30 0RF No Action atorvastatin 80 MG tablet 80 mg PO HS metoprolol tartrate [Lopressor] 100 MG tablet 100 mg PO DAILY aspirin [Aspir-81] 81 MG tablet,delayed release (DR/EC) 81 mg PO DAILY citalopram 20 MG tablet 20 mg PO DAILY temazepam [Restoril] 15 MG capsule 15 mg PO HS niacin [Slo-Niacin] 500 MG tablet extended release 250 mg PO HS Myrbetriq 25 MG tablet extended release 24 hr 25 mg PO DAILY potassium chloride [K-Tab] 20 MEQ tablet extended release 20 meq PO DAILY amlodipine 5 MG tablet 5 mg PO DAILY lisinopril 20 MG tablet 20 mg PO DAILY Label Comments: TAKE 1 TABLET ONCE A DAY fenofibrate nanocrystallized 145 MG tablet 145 mg PO DAILY Label Comments: TAKE 1 TABLET ONCE A DAY rivaroxaban 10 MG tablet 10 mg PO DAILY metoprolol tartrate 100 MG tablet 50 mg PO HS donepezil 10 mg tablet 10 mg PO DAILY Label Comments: TAKE 1 TABLET 1 TIME EACH DAY AT BEDTIME carbidopa-levodopa 10-100 mg tablet 10 - 100 tab PO TID Label Comments: TAKE 1 TABLET 3 TIMES EACH DAY pramipexole 0.125 mg tablet 0.125 mg PO TID Label Comments: TAKE 1 TABLET IN THE MORNING AND TAKE 2 TABLETS AT BEDTIME. Referrals Follow up/Referrals: Neville Dye MD [Primary Care Provider] - See instructions Clinical Impressions Clinical Impression: Strep pharyngitis Instructions Patient Instructions: DI for Strep Throat Discharge ED Provider: Kaylynn Gruber [facility] [place] HPI General Stated complaint: sore throat,cough Mode of Arrival: Ambulatory Source of Information: Patient Limitations: No Limitations Time Seen by Provider: 11/10/22 15:23 Description of Symptoms (Recalled from Triage Doc. by RN): sore throat, cough, runny nose HEENT Symptoms (Recalled from RN notes): Yes Resp Symptoms (Recalled from RN notes): No Skin Symptoms (Recalled from RN notes): No MS Symptoms (Recalled from RN notes): No Functional Status (Recalled from RN notes): n/a History of Present Illness Provider Complaint: Pt states that he has had a sore throat, cough, and runny nose. has had similar symptoms. They have been around grandchildren. Related Data Home Medications Medication Instructions Recorded Confirmed aspirin 81 mg tablet,delayed 81 mg PO DAILY HEART/CIRCULATION 11/28/17 11/10/22 release (Aspir-) atorvastatin 80 mg tablet 80 mg PO HS Cholesterol 11/28/17 11/10/22 citalopram 20 mg tablet 20 mg PO DAILY Depression 11/28/17 11/10/22 metoprolol tartrate 100 mg tablet 100 mg PO DAILY High blood pressure 11/28/17 11/10/22 (Lopressor) mirabegron 25 mg tablet,extended 25 mg PO DAILY BLADDER 11/28/17 11/10/22 release 24 hr (Myrbetriq) niacin 500 mg tablet,extended 250 mg PO HS Cholesterol 11/28/17 11/10/22 release (Slo-Niacin) potassium chloride 20 mEq 20 meq PO DAILY POTASSIUM 11/28/17 11/10/22 tablet,extended release (K-Tab) REPLACEMENT temazepam 15 mg capsule (Restoril) 15 mg PO HS Insomnia 11/28/17 11/10/22 amlodipine 5 mg tablet 5 mg PO DAILY BLOOD PRESSURE 01/05/19 11/10/22 fenofibrate nanocrystallized 145 145 mg PO DAILY Cholesterol 01/06/19 11/10/22 mg tablet lisinopril 20 mg tablet 20 mg PO DAILY High blood pressure 01/06/19 11/10/22 rivaroxaban 10 mg tablet 10 mg PO DAILY Blood thinner 07/22/19 11/10/22 metoprolol tartrate 100 mg tablet 50 mg PO HS High blood pressure 07/23/19 11/10/22 carbidopa 10 mg-levodopa 100 mg 10 - 100 tab PO TID . 11/10/22 11/10/22 tablet donepezil 10 mg tablet 10 mg PO DAILY . 11/10/22 11/10/22 pramipexole 0.125 mg tablet 0.125 mg PO TID . 11/10/22 11/10/22 Previous Rx's Medication Instructions Recorded a
[2022-11-10 15:57] VITALS: BP 190/92; PULSE 63; RESP 20; TEMP 36.9; O2SAT 97
== END 2022-11-10 15:57 | disposition home or self-care (01) ==
PROVIDERS: Emergency Provider Nurse Practitioner Family; PCP Family Medicine
DX: J02.0 Streptococcal pharyngitis (principal)
CPT/HCPCS: 87880; 99212; 99213; G0463

== ENCOUNTER → 2022-12-03 07:35 | Outpatient (CLI) | payer MEDICARE, MEDICAID, SELFPAY ==
--- NOTE | 2022-12-03 07:35 | MR_ITS ---
FINAL REPORT CLINICAL HISTORY: Eval for mass, lesion, CVA, ischemic changes. TREMOR. SOME MEMORY LOSS FINDINGS: Multi planar MR imaging was obtained through the brain without contrast. There is moderate abnormal signal throughout the periventricular white matter. The midline structures appear intact. There is no evidence of Chiari malformation. On T2 and flair axial images the brain parenchyma is homogeneous. On diffusion-weighted images there is no evidence of restricted diffusion. There is moderate maxillary, ethmoid, sphenoid and frontal sinus mucoperiosteal thickening. The seventh and eighth nerve root complexes are intact. IMPRESSION: Chronic, pansinusitis. Moderate ischemic/gliotic change. Otherwise, unremarkable nonenhanced brain MRI. Reviewed, Interpreted and Dictated by Alejo Bocanegra MD Transcribed by Stacey Olea Authenticated and [facility]
== END ==
PROVIDERS: PCP Family Medicine; Visit Provider Nurse Practitioner Family
DX: G20 Parkinson's disease (principal); G47.52 REM sleep behavior disorder; R06.81 Apnea, not elsewhere classified; R44.1 Visual hallucinations
CPT/HCPCS: 70551

== ENCOUNTER → 2022-12-03 08:36 | Outpatient (CLI) | payer MEDICARE, MEDICAID, SELFPAY ==
[2022-12-03 09:10] LABS: Basophils # 0.1 K/mm3 (0-0.2); Eosinophils # 0.7 K/mm3 (0.0-0.4); Eosinophils % 8.8 % (0.1-12.0); Hematocrit 46.4 % (42.0-52.0); Hemoglobin 15.4 g/dL (14.1-18.0); Lymphocytes # 1.3 K/mm3 (0.7-4.5); Lymphocytes % 17.4 % (10-50); Mean Corpuscular HGB Conc 33.3 g/dL (31.8-35.4); Mean Corpuscular Hemoglobin 30.3 pg (27.0-31.2); Mean Corpuscular Volume 91.1 fl (80-94); Monocytes # 0.5 K/mm3 (0.1-1.0); Monocytes % 6.7 % (1.7-9.3); Neutrophils % 66.2 % (37.0-80.0); Platelet Count 277 K/mm3 (142-424); Red Blood Count 5.09 M/mm3 (4.60-6.20); Red Cell Distribution Width 15.6 % (11.5-17.5); White Blood Count 7.5 K/mm3 (4.8-10.8)
[2022-12-03 10:01] LABS: Alanine Aminotransferase 25 U/L (12-78); Albumin Level 4.2 g/dl (3.5-5.0); Albumin/Globulin Ratio 1.6 (1.1-1.8); Alkaline Phosphatase 58 U/L (38-126); Anion Gap 9.7 mEq/L (5-15); Aspartate Amino Transferase 23 U/L (17-59); Bilirubin,Total 0.4 mg/dl (0.2-1.3); Blood Urea Nitrogen 18 mg/dl (9-20); Calcium 9.5 mg/dl (8.4-10.2); Carbon Dioxide 26 mmol/L (22.0-30.0); Chloride 113 mmol/L (98-107); Estimated Glomerular Filt Rate 49 ml/min (>60); GFR (African American) 59 ML/MIN (>60); Globulin 2.6 g/dL (1.3-3.2); Glucose 103 mg/dl (74-100); Potassium 3.7 mmoL/L (3.5-5.1); Sodium 145 mmol/L (136-145); Total Protein,Serum 6.8 g/dl (6.3-8.2)
[2022-12-03 10:07] LABS: C-Reactive Protein 1.8 mg/L (0-4)
[2022-12-03 10:27] LABS: Erythrocyte Sedimentation Rate 8 mm/hr (0-20)
[2022-12-03 10:32] LABS: Thyroid Stimulating Hormone 3.54 uIU/mL (0.465-4.68)
[2022-12-03 11:07] LABS: Vitamin B12 701 pg/mL (239-931)
[2022-12-03 11:36] LABS: Folate 4.67 ng/mL
[2022-12-04 13:43] LABS: Rapid Plasma Reagin Ab Titer Non Reactive (NonRea<1:1)
[2022-12-07 21:06] LABS: Antinuclear Antibodies (ANA) NEGATIVE
== END ==
PROVIDERS: PCP Family Medicine; Visit Provider Nurse Practitioner Family
DX: G20 Parkinson's disease (principal); G47.52 REM sleep behavior disorder; R06.81 Apnea, not elsewhere classified; R06.83 Snoring; R07.2 Precordial pain; R40.0 Somnolence; R44.1 Visual hallucinations; I10 Essential (primary) hypertension
CPT/HCPCS: 36415; 70551; 80053; 82607; 82746; 84443; 85025; 85651; 86038; 86140; 86593

== ENCOUNTER → 2023-02-05 19:48 | Outpatient (CLI) | payer MEDICARE, MEDICAID, SELFPAY | PROVIDERS: PCP Family Medicine; Visit Provider Nurse Practitioner Family | DX: G47.30 Sleep apnea, unspecified (principal); R40.0 Somnolence; R06.83 Snoring | CPT/HCPCS: 95810 ==

== ENCOUNTER → 2023-07-12 10:40 | Outpatient (CLI) | payer MEDICARE, MEDICAID, SELFPAY ==
[2023-07-12 10:58] LABS: Coronavirus 19, PCR Not Detected (NotDetected); Influenza A, PCR Not Detected (NotDetected); Influenza B, PCR Not Detected (NotDetected)
== END ==
PROVIDERS: PCP Family Medicine; Visit Provider Family Medicine
DX: Z20.822 Contact with and (suspected) exposure to COVID-19 (principal)
CPT/HCPCS: 87636

== ENCOUNTER → 2023-07-15 10:32 | Outpatient (CLI) | payer MEDICARE, MEDICAID, SELFPAY ==
--- NOTE | 2023-07-15 10:34 | FL_ITS ---
FINAL REPORT CLINICAL HISTORY: . 2:03 FLUORO TIME 262.48 DAP FINDINGS: MODIFIED BARIUM SWALLOW History: Dysphagia. FINDINGS: Fluoroscopy was provided for the speech pathologist to evaluate the swallowing mechanism. The patient was given several different consistencies of barium while the swallow was visualized fluoroscopically. The report of the speech pathologist should be consulted prior to making dietary decisions. Fluoro time: 2 minutes 3 seconds Total DAP: 262.48 uGycm2. IMPRESSION: Modified barium swallow under fluoroscopic guidance. Please see the report of the speech pathologist for more detail. Films reviewed , interpreted and dictated by Dr. Bocanegra. Transcribed by Carl Jackson PA-C. Reviewed, Interpreted and Dictated by Alejo Bocanegra MD Transcribed by TYSON Valdez Authenticated and . [facility]
--- NOTE | 2023-07-15 11:38 | HMH.SLMBS2 ---
Speech & Language Evaluation Speech/Language Mod Barium Swallow Start: 07/15/23 11:10 Freq: once Status: Complete Protocol: Document 07/15/23 11:10 CELIA (Rec: 07/15/23 11:38 CELIA [id number]) General Information General Current Food Consistancy Regular,Thin Liquids Dentition Good Dentition Oxygen Status Room Air Patient Orientation Person,Place,Time Ability to Follow Directions Good Communication Ability Mild Impairment Voice Voice Quality Tremor,Weak Voice Loudness Mildly Soft/Quiet MBS Recommendations Diet Dietary Recommendations Regular,Thin Liquids Treatment/Strategies Strategy/Precaution Recommend Sitting Upright (90 deg), Double Swallow,Small Bites and Sips,Alternate Liquids/Solids Mod Barium Swallow Impressions Summary and Impressions Oral Phase Impression Mild Impairment Oral Phase Summary Mr. Gallardo exhibits a mild impairment in the oral preparatory and oral transit phases of the swallow 2' demonstration of prolonged mastication with scattered swallows noted across solids administered. There was also prolonged a/p transit noted with solids. He was also observed to inadequately suck full bolus out of straw and exhibited anterior loss of liquids presented due to this. Pharyngeal Phase Impression Mild Impairment Pharyngeal Phase Summary Mild pharyngeal impairment observed. Mr. Gallardo exhibited no aspiration throughout the study. Across all bolus consistencies administered nanci residue was noted in the vallecular space that was able to be cleared to trace amounts of vallecular residue when prompted to complete a secondary swallow; remaining residue cleared with a puree wash. Trace amounts of mild diffuse pharyngeal residue noted with all consistencies, and pt is able to clear residue with subsequent swallow.
== END ==
PROVIDERS: PCP Family Medicine; Visit Provider Nurse Practitioner Family
DX: R47.1 Dysarthria and anarthria (principal); R63.4 Abnormal weight loss
CPT/HCPCS: 70371; 92611

== ENCOUNTER 2023-07-15 11:08 | Emergency (ER) | payer MEDICARE, MEDICAID, SELFPAY ==
[2023-07-15 11:10] VITALS: BP 157/92; PULSE 52; RESP 18; TEMP 36.7; O2SAT 95; BMI 29.2
--- NOTE | 2023-07-15 11:28 | XR_ITS ---
FINAL REPORT TECHNIQUE: Chest PA & Lateral CLINICAL HISTORY: Nonspecific cough COMPARISON: 03/14/2020 FINDINGS: 2 views of the chest were performed. The heart size is normal. The mediastinum is within normal limits. There is a moderate hiatal hernia. There is no acute cardiopulmonary process. There are no pleural effusions. There is no pneumothorax. The bony thorax appears intact. IMPRESSION: No acute cardiopulmonary process. Reviewed, Interpreted and Dictated by Alejo Bocanegra MD Transcribed by Pham Galeana Authenticated and [facility]
--- NOTE | 2023-07-15 11:29 | EXP.UTC ---
Discharge Plan Disposition Patient Disposition: Home, Self-Care Condition: Good Prescriptions Prescriptions: New benzonatate 200 mg capsule 200 mg PO BID PRN (Reason: cough) Qty: 30 0RF amoxicillin [amoxicillin] 875 mg tablet 875 mg PO Q12H Qty: 20 0RF prednisone 10 mg tablet 10 mg PO DIRECTED 9 Days Qty: 21 0RF Rx Instructions: Take 4 tablets daily for 3 days, then take 2 tablets daily for 3 days, then take 1 tablet daily for 3 days, then stop. No Action losartan 50 mg tablet 50 mg PO DAILY mecobalamin (vitamin B12) 1,000 mcg tablet,disintegrating 1,000 mcg sublingual DAILY Rx Instructions: place tablet under tongue and allow to dissolve for at least30 secs before swallowing cholecalciferol (vitamin D3) 50 mcg (2,000 unit) capsule 50 mcg PO DAILY potassium chloride 20 mEq tablet,ER particles/crystals 20 meq PO DAILY clonazepam 0.5 mg tablet 1 mg PO HS melatonin 10 mg tablet 20 mg PO HS carbidopa-levodopa 25-100 mg tablet 1 tab PO TID Qty: 90 2RF atorvastatin 80 MG tablet 80 mg PO HS metoprolol tartrate [Lopressor] 100 MG tablet 100 mg PO DAILY citalopram 20 MG tablet 20 mg PO DAILY niacin [Slo-Niacin] 500 MG tablet extended release 250 mg PO HS Myrbetriq 25 MG tablet extended release 24 hr 25 mg PO DAILY amlodipine 5 MG tablet 5 mg PO DAILY fenofibrate nanocrystallized 145 MG tablet 145 mg PO DAILY Patient Comments: TAKE 1 TABLET ONCE A DAY rivaroxaban 10 MG tablet 10 mg PO DAILY donepezil 10 mg tablet 10 mg PO DAILY Patient Comments: TAKE 1 TABLET 1 TIME EACH DAY AT BEDTIME primidone 50 mg tablet 50 mg PO BID Patient Comments: TAKE 1 TABLET 2 TIMES EACH DAY FOR TREMOR entacapone [Comtan] 200 mg tablet 200 mg PO TID Rx Instructions: administer at the same time as carbidopa/levodopa Referrals Follow up/Referrals: Neville Dye MD [Primary Care Provider] - See instructions Activity Restrictions/Add. Instructions Additional Instructions/Restrictions: Drink plenty of fluids. Take tylenol or ibuprofen for pain or fever. Take the medications as directed. Follow up with your regular doctor. GO TO THE ER FOR ANY WORSENING SYMPTOMS Clinical Impressions Clinical Impression: Bronchitis Instructions Patient Instructions: Acute Bronchitis, DI for Acute Bronchitis Discharge ED Provider: Jerardo Sullivan [facility] [place] HPI General Stated complaint: cough, congestion Time Seen by Provider: 07/15/23 11:29 History of Present Illness Provider Complaint: He states that for the past 5 days he has had sinus congestion and chest congestion. He denies shortness of breath. Related Data Home Medications Medication Instructions Recorded Confirmed atorvastatin 80 mg tablet 80 mg PO HS Cholesterol 11/28/17 07/15/23 citalopram 20 mg tablet 20 mg PO DAILY Depression 11/28/17 07/15/23 metoprolol tartrate 100 mg tablet 100 mg PO DAILY High blood pressure 11/28/17 07/15/23 (Lopressor) mirabegron 25 mg tablet,extended 25 mg PO DAILY BLADDER 11/28/17 07/15/23 release 24 hr (Myrbetriq) niacin 500 mg tablet,extended 250 mg PO HS Cholesterol 11/28/17 07/15/23 release (Slo-Niacin) amlodipine 5 mg tablet 5 mg PO DAILY BLOOD PRESSURE 01/05/19 07/15/23 fenofibrate nanocrystallized 145 145 mg PO DAILY Cholesterol 01/06/19 07/15/23 mg tablet rivaroxaban 10 mg tablet 10 mg PO DAILY Blood thinner 07/22/19 07/15/23 donepezil 10 mg tablet 10 mg PO DAILY . 11/10/22 07/15/23 cholecalciferol (vitamin D3) 50 50 mcg PO DAILY Supplement 11/28/22 07/15/23 mcg (2,000 unit) capsule losartan 50 mg tablet 50 mg PO DAILY . 11/28/22 07/15/23 mecobalamin (vitamin B12) 1,000 1,000 mcg sublingual DAILY 11/28/22 07/15/23 mcg disintegrating Supplement tablet,sublingual potassium chloride 20 mEq 20 meq PO DAILY Supplement 12/31/22 07/15/23 tablet,exte
[2023-07-15 12:16] VITALS: BP 157/92; PULSE 52; RESP 18; TEMP 36.7; O2SAT 95
== END 2023-07-15 12:16 | disposition home or self-care (01) ==
PROVIDERS: Emergency Provider Nurse Practitioner Family; PCP Family Medicine
DX: J20.9 Acute bronchitis, unspecified (principal); F17.290 Nicotine dependence, other tobacco product, uncomplicated; K21.9 Gastro-esophageal reflux disease without esophagitis; E78.5 Hyperlipidemia, unspecified; I10 Essential (primary) hypertension; F32.A Depression, unspecified
CPT/HCPCS: 70371; 71046; 92611; 99212; 99214; G0463

== ENCOUNTER 2024-03-03 13:31 | Observation (INO) | payer MEDICARE, MEDICAID, SELFPAY ==
[2024-03-03] VITALS (18 sets, daily range): BP systolic 116–161; BP diastolic 70–137; PULSE 54–70; RESP 12–20; TEMP 36.8–36.9; O2SAT 93–100; BMI 27.4
--- NOTE | 2024-03-03 13:36 | ECG_ITS ---
APPROVED REPORT Exam: Resting ECG HR:59 bpm ECG Measurements Heart Rate 59 AXES OH 123 P 48 QRSd 115 QRS -47 QT 465 T 76 QTc 465 Conclusion SINUS BRADYCARDIA LEFT ANTERIOR FASCICULAR BLOCK [QRS AXIS <= -45, QR IN I, RS IN II] NONSPECIFIC ST & T-WAVE ABNORMALITY PROLONGED QT INTERVAL Electronically signed by : AMELIA GLEASON, 03/03/2024 18:05:07
--- NOTE | 2024-03-03 14:06 | HMH.EDGENADL ---
Discharge Plan Disposition Patient Disposition: Admitted Condition: Fair Prescriptions Prescriptions: No Action losartan 50 mg tablet 50 mg PO DAILY mecobalamin (vitamin B12) 1,000 mcg tablet,disintegrating 1,000 mcg sublingual DAILY Rx Instructions: place tablet under tongue and allow to dissolve for at least30 secs before swallowing cholecalciferol (vitamin D3) 50 mcg (2,000 unit) capsule 50 mcg PO DAILY potassium chloride 20 mEq tablet,ER particles/crystals 20 meq PO DAILY melatonin 10 mg tablet 20 mg PO HS clonazepam 1 mg tablet 1 mg PO HS Patient Comments: TAKE 1 TABLET 1 TIME EACH DAY AT BEDTIME Myrbetriq 50 mg tablet extended release 24 hr 50 mg PO DAILY Patient Comments: TAKE 1 TABLET 1 TIME EACH DAY entacapone [Comtan] 200 mg tablet 200 mg PO TID 30 Days Qty: 90 5RF Rx Instructions: administer at the same time as carbidopa/levodopa carbidopa-levodopa 25-100 mg tablet 1.5 tab PO TID 30 Days Qty: 135 2RF atorvastatin 80 MG tablet 80 mg PO HS metoprolol tartrate [Lopressor] 100 MG tablet 100 mg PO DAILY citalopram 20 MG tablet 20 mg PO DAILY niacin [Slo-Niacin] 500 MG tablet extended release 250 mg PO HS amlodipine 5 MG tablet 5 mg PO DAILY fenofibrate nanocrystallized 145 MG tablet 145 mg PO DAILY Patient Comments: TAKE 1 TABLET ONCE A DAY rivaroxaban 10 MG tablet 10 mg PO DAILY donepezil 10 mg tablet 10 mg PO DAILY Patient Comments: TAKE 1 TABLET 1 TIME EACH DAY AT BEDTIME primidone 50 mg tablet 50 mg PO BID Patient Comments: TAKE 1 TABLET 2 TIMES EACH DAY FOR TREMOR benzonatate 200 mg capsule 200 mg PO BID PRN (Reason: cough) Qty: 30 0RF Referrals Follow up/Referrals: Neville Dye MD [Primary Care Provider] - See instructions Clinical Impressions Clinical Impression: Syncope and collapse, Elevated lipase, Arrhythmia Instructions Patient Instructions: DI for Syncope in Adults (Fainting), DI for Syncope in Children (Fainting) Discharge ED Provider: Jude Church [facility] Adult HPI <TYSON Rosen - Last Filed: 03/03/24 17:32> General Chief complaint: Syncope Stated complaint: syncope Time Seen by Provider: 03/03/24 14:05 Mode of Arrival: EMS Source of Information: Patient Limitations: No Limitations Description of Symptoms (Recalled from ER Triage Doc. by RN): pt to ed c/o syncope. pt states he felt nauseous prior to. son on scene states pt did go unconscious briefly. on arrival to ed pt is c/o lower back pain, reports he feels better History of Present Illness HPI narrative: Patient presents for evaluation after a syncopal episode. Patient reports that began having abdominal pain that awoke him from sleep last night it persisted for an undetermined amount of time but completely abated after he passed flatus. It has not recurred. Patient began feeling back to his baseline and was on an errand with his son riding in a truck. He got out of the truck to going to the store and had a syncopal episode. He was assisted to the ground by his son and suffered no trauma. Patient's son stated that he was unconscious for approximately 2 minutes. They then presented to the emergency department. Patient has a past medical history of Parkinson's disease, Lewy body dementia, obstructive sleep apnea, obstructive sleep apnea not on CPAP, history of PE currently on Xarelto, history of heart attacks x 2 but no previous history of intervention, hypertension on amlodipine losartan and metoprolol according to his medication list, hyperlipidemia. Additionally patient's is currently in [place] due to a cancer diagnosis and has been so for approximately 2 weeks. Patient states that he has difficulty doing his activities of daily living without her being around. He does have 2 sons that live close and check on him frequently however they are unable to provide full care. When patient's is with him he is fairly independent with her assistance. Patient currently denies chest pain palpitation shortness of breath abdominal pain fever chills hemoptysis hematochezia melena nausea vomiting diarrhea or pain anywhere. Related Data Home Medications Medication Instructions Recorded Confirmed atorvastatin 80 mg tablet 80 mg PO HS Cholesterol 11/28/17 11/19/23 citalopram 20 mg tablet 20 mg PO DAILY Depression 11/28/17 11/19/23 metoprolol tartrate 100 mg tablet 100 mg PO DAILY High blood pressure 11/28/17 11/19/23 (Lopressor) niacin 500 mg tablet,extended 250 mg PO HS Cholesterol 11/28/17 11/19/23 release (Slo-Niacin) amlodipine 5 mg tablet 5 mg PO DAILY BLOOD PRESSURE 01/05/19 11/19/23 fenofibrate nanocrystallized 145 145 mg PO DAILY Cholesterol 01/06/19 11/19/23 mg tablet rivaroxaban 10 mg tablet 10 mg PO DAILY Blood thinner 07/22/19 11/19/23 donepezil 10 mg tablet 10 mg PO DAILY . 11/10/22 11/19/23 cholecalciferol (vitamin D3) 50 50 mcg PO DAILY Supplement 11/28/22 11/19/23 mcg (2,000 unit) capsule losartan 50 mg tablet 50 mg PO DAILY . 11/28/22 11/19/23 mecobalamin (vitamin B12) 1,000 1,000 mcg sublingual DAILY 11/28/22 11/19/23 mcg disintegrating Supplement tablet,sublingual potassium chloride 20 mEq 20 meq PO DAILY Supplement 12/31/22 11/19/23 tablet,extended release(part/cryst) melatonin 10 mg tablet 20 mg PO HS sleep 04/08/23 11/19/23 primidone 50 mg tablet 50 mg PO BID Tremor(S) 07/15/23 11/19/23 clonazepam 1 mg tablet 1 mg PO HS 07/23/23 11/19/23 mirabegron 50 mg tablet,extended 50 mg PO DAILY 07/23/23 11/19/23 release 24 hr (Myrbetriq) Previous Rx's Medication Instructions Recorded benzonatate 200 mg capsule 200 mg PO BID PRN cough #30 caps 07/15/23 entacapone 200 mg tablet (Comtan) 200 mg PO TID parkinson 30 days 11/19/23 #90 tabs carbidopa 25 mg-levodopa 100 mg 1.5 tab PO TID parkinsonian 11/20/23 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 Medical History Depression Deviated septum GERD (gastroesophageal reflux disease) Heart attack Hyperlipidemia Hypertension Kidney stone VIRY (obstructive sleep apnea) Surgical History History of cardiac cath Family History (Updated 11/19/23 @ 13:55 by Romina Foster) Other Cancer Coronary artery disease Hyperlipidemia Hypertension Social History Smoking Status: Never smoker second hand exposure: Yes alcohol intake: never substance use type: denies use current occupational status: retired Travel in the last 8 weeks: None household members: spouse housing: house caffeine: Yes <TYSON Rosen - Last Filed: 03/03/24 17:32> ROS Obtained: Yes Systems reviewed as appropriate & no additional complaints except as documented Physical Exam <TYSON Rosen - Last Filed: 03/03/24 17:32> General General appearance: alert (Patient does have Lewy body dementia and has a flat and slow affect but answers questions appropriately) and in no apparent distress Head Head exam: atraumatic and normal inspection Eye Eye exam: Present normal appearance and EOMI ENT ENT exam: Present normal exam and normal oropharynx Neck Neck exam: Present normal inspection; Absent tenderness Chest Chest inspection: Present normal inspection Respiratory Respiratory exam: Present normal lung sounds bilaterally; Absent respiratory distress or wheezes Cardiovascular Cardiovascular exam: Present normal rhythm, bradycardia, normal heart sounds, +S1 and +S2 Abdominal Exam Abdominal exam: Present soft and normal bowel sounds; Absent tenderness, guarding, rebound or rigidity Extremities Exam Extremities exam: Present normal inspection and full ROM; Absent tenderness Back Exam Back exam: Present normal inspection and full ROM; Absent tenderness Neurological Exam Neurological exam: Present alert, oriented X3 and CN II-XII intact Psychiatric Psychiatric exam: Present normal mood and flat affect Skin Skin exam: Present warm, dry and normal color Medical Decision Making <TYSON Rosen - Last Filed: 03/03/24 17:32> Medical Records Medical records reviewed: Yes I reviewed the patient's medical records. Santino Inquiry Pt receiving controlled substance: No Vital Signs: 03/03/24 13:34 03/03/24 13:35 03/03/24 13:40 Temperature 98.4 F Temperature Source Oral Pulse Rate 63 63 Pulse Rate [Left Radial] 60 Respiratory Rate 12 15 20 Blood Pressure 157/120 H 151/82 H Blood Pressure [Right Arm] 151/82 H Blood Pressure Mean Blood Pressure Mean [Right Arm] 105 02 Sat by Pulse Oximetry 94 L 94 L 93 L Oxygen Delivery Method Room Air Room Air Room Air 03/03/24 14:00 03/03/24 14:30 03/03/24 15:00 Temperature Temperature Source Pulse Rate 54 L 55 L 58 L Pulse Rate [Left Radial] Respiratory Rate 18 16 18 Blood Pressure 129/79 127/80 123/76 Blood Pressure [Right Arm] Blood Pressure Mean 94 98 Blood Pressure Mean [Right Arm] 02 Sat by Pulse Oximetry 94 L 97 94 L Oxygen Delivery Method Room Air 03/03/24 15:30 03/03/24 16:00 03/03/24 16:30 Temperature Temperature Source Pulse Rate 58 L 57 L 61 Pulse Rate [Left Radial] Respiratory Rate 17 14 16 Blood Pressure 145/79 H 142/84 H 147/77 H Blood Pressure [Right Arm] Blood Pressure Mean 101 103 100 Blood Pressure Mean [Right Arm] 02 Sat by Pulse Oximetry 94 L 96 98 Oxygen Delivery Method 03/03/24 17:00 03/03/24 17:31 Temperature Temperature Source Pulse Rate 54 L 59 L Pulse Rate [Left Radial] Respiratory Rate 14 13 Blood Pressure 145/85 H 156/91 H Blood Pressure [Right Arm] Blood Pressure Mean Blood Pressure Mean [Right Arm] 02 Sat by Pulse Oximetry 100 98 Oxygen Delivery Method Room Air Room Air Lab Data Lab results reviewed: Yes I reviewed the patient's lab results. Lab Results 03/03/24 13:37: WBC 9.3, RBC 4.71, Hgb 14.8, Hct 46.3, MCV 98.4 H, MCH 31.6 H, MCHC 32.1, RDW 15.4, Plt Count 269, MPV 9.2, Neut % (Auto) 64.9, Lymph % (Auto) 24.2, [place] % (Auto) 6.5, Eos % (Auto) 3.8, Baso % (Auto) 0.7, Neut # (Auto) 6.0, Lymph # (Auto) 2.3, [place] # (Auto) 0.6, Eos # (Auto) 0.4, Baso # (Auto) 0.1, PT 12.5, INR 1.17 H, Sodium 138, Potassium 3.9, Chloride 108 H, Carbon Dioxide 24, Anion Gap 9.9, BUN 20, Creatinine 1.30 H, Estimated Creat Clear 49, Estimated GFR 53 L, Est GFR ( Amer) 64, Glucose 132 H, Calcium 9.9, Magnesium 1.9, Total Bilirubin 0.9, AST 28, ALT 9 L, Alkaline Phosphatase 43, Troponin I < 0.01, Total Protein 6.6, Albumin 4.1, Globulin 2.5, Albumin/Globulin Ratio 1.6, Lipase 704 H, Urine Color Dark yellow, Urine Appearance Clear, Urine pH 6.0, Ur Specific [place] >= 1.030, Urine Protein 1+, Urine Glucose (UA) Trace, Urine Ketones Trace, Urine Blood Negative, Urine Nitrate Negative, Urine Bilirubin Negative, Urine Urobilinogen 1.0, Ur Leukocyte Esterase Negative, Urine RBC None, Urine WBC Occasional, Ur Squamous Epith Cells Occasional, Urine Bacteria Trace 03/03/24 13:37 03/03/24 13:37 Orders (Tests/Meds): ED MEDICATIONS Discontinued Medications Generic Name Dose Route Start Last Admin Trade Name Freq PRN Reason Stop Dose Admin Acetaminophen 1,000 mg 03/03/24 14:27 03/03/24 14:34 Acetaminophen 1,000mg/100ml Vial IV 03/03/24 14:28 1,000 mg ONCE ONE Administration Lactated Ringer's 1,000 mls @ 999 mls/hr 03/03/24 14:27 03/03/24 14:34 Lactated Ringer's 1000 Ml Bag IV 03/03/24 15:27 999 mls/hr .Q1H1M ONE Administration Magnesium Sulfate 2 gm in 50 mls @ 50 mls/hr 03/03/24 15:40 03/03/24 15:51 Magnesium Sulfate 2gm/50ml Premix IV 03/03/24 16:39 50 mls/hr ONCE ONE Administration Iopamidol 100 ml 03/03/24 15:18 03/03/24 15:27 Iopamidol-370 (76%);100ml Bottle IV 03/03/24 15:19 100 ml ONCE ONE Administration Sodium Chloride 50 ml 03/03/24 15:18 03/03/24 15:27 0.9 % Sodium Chloride 50 Ml Vial IV 03/03/24 15:19 50 ml ONCE ONE Administration Sodium Chloride 10 ml 03/03/24 15:18 03/03/24 15:27 Sodium Chloride 0.9% 10ml Syr (Rad Only) IV 03/03/24 15:19 10 ml ONCE ONE Administration ORDERS Category Date Time Status CT angio abdomen pelvis Stat Cat Scan 03/03/24 14:[address] angio chest PE protocol Stat Cat Scan 03/03/24 14:27 Completed CBC w/Auto Diff [Complete Blood Count Auto Diff] Stat Lab 03/03/24 13:37 Completed CMP [Comprehensive Metabolic Panel] Stat Lab 03/03/24 13:37 Completed INR [Prothrombin Time INR] Stat Lab 03/03/24 13:37 Completed Lipase Stat Lab 03/03/24 13:37 Completed Magnesium Stat Lab 03/03/24 13:37 Completed Trop I [Troponin I] Stat Lab 03/03/24 13:37 Completed Troponin I Q3H Lab 03/03/24 17:30 Ordered Troponin I Q3H Lab 03/03/24 20:30 Ordered UA [Urinalysis and Microscopic] Stat Lab 03/03/24 13:37 Completed HEART Score History (anamnesis): Slightly suspicious ECG: Non-specific disturbance Age: >65 years Risk factors: 3 or more risk factors Troponin: </= normal limit HEART Score: 5 Medical Decision Narrative: In summary patient is a 78-year-old male who presents to the emergency department for evaluation of syncope. Patient is currently normotensive but with a heart rate of 55 at the time of my exam on the bedside monitor that appears to be in normal sinus rhythm satting at 94% on room air with respiratory rate of 12 upon arrival, and afebrile. Physical exam is remarkable for flat affect likely due to his Lewy body dementia but patient is answering questions appropriately. Patient currently otherwise has no chest pain abdominal pain and the remainder of his exam is nonfocal. Differential diagnosis includes cardiogenic syncope, vasovagal syncope, ACS, aortic dissection, polypharmacy etc.. Initial workup will be conducted with hematologic labs CTA of the chest abdomen pelvis, twelve-lead EKG. Initial interventions include crystalloid bolus Tylenol. Initial workup reviewed by me shows an elevated lipase and a troponin of 0.01 magnesium of 1.9 and the remainder of his laboratory investigations are nonactionable. My informal review of his CT scan shows no acute processes radiology read pending. Upon repeat evaluation while patient was under continuous cardiac monitoring and continuous pulse oximetry patient had a rhythm change on the monitor that showed a very fast rate subjective of V. tach or atrial flutter. Given this I had an interactive discussion with cardiology about patient management. Cardiology recommended admission and further workup tomorrow. At that point I had an interactive discussion with Dr. Jaquez who is on-call for Dr. Dye who agreed to admission. Lynnette: EKG independently interpreted. Patient has sinus bradycardia 59 beats a minute. No ST or T wave changes concerning for acute ischemia, SD, QRS intervals within normal limits. Mild QT prolongation for 65 ms. mild leftward axis <Jude Church MD - Last Filed: 03/03/24 18:07> Vital Signs: 03/03/24 13:34 03/03/24 13:35 03/03/24 13:40 Temperature 98.4 F Temperature Source Oral Pulse Rate 63 63 Pulse Rate [Left Radial] 60 Respiratory Rate 12 15 20 Blood Pressure 157/120 H 151/82 H Blood Pressure [Right Arm] 151/82 H Blood Pressure Mean Blood Pressure Mean [Right Arm] 105 02 Sat by Pulse Oximetry 94 L 94 L 93 L Oxygen Delivery Method Room Air Room Air Room Air 03/03/24 14:00 03/03/24 14:30 03/03/24 15:00 Temperature Temperature Source Pulse Rate 54 L 55 L 58 L Pulse Rate [Left Radial] Respiratory Rate 18 16 18 Blood Pressure 129/79 127/80 123/76 Blood Pressure [Right Arm] Blood Pressure Mean 94 98 Blood Pressure Mean [Right Arm] 02 Sat by Pulse Oximetry 94 L 97 94 L Oxygen Delivery Method Room Air 03/03/24 15:30 03/03/24 16:00 03/03/24 16:30 Temperature Temperature Source Pulse Rate 58 L 57 L 61 Pulse Rate [Left Radial] Respiratory Rate 17 14 16 Blood Pressure 145/79 H 142/84 H 147/77 H Blood Pressure [Right Arm] Blood Pressure Mean 101 103 100 Blood Pressure Mean [Right Arm] 02 Sat by Pulse Oximetry 94 L 96 98 Oxygen Delivery Method 03/03/24 17:00 03/03/24 17:31 Temperature Temperature Source Pulse Rate 54 L 59 L Pulse Rate [Left Radial] Respiratory Rate 14 13 Blood Pressure 145/85 H 156/91 H Blood Pressure [Right Arm] Blood Pressure Mean Blood Pressure Mean [Right Arm] 02 Sat by Pulse Oximetry 100 98 Oxygen Delivery Method Room Air Room Air Lab Data Lab Results 03/03/24 13:37: WBC 9.3, RBC 4.71, Hgb 14.8, Hct 46.3, MCV 98.4 H, MCH 31.6 H, MCHC 32.1, RDW 15.4, Plt Count 269, MPV 9.2, Neut % (Auto) 64.9, Lymph % (Auto) 24.2, [place] % (Auto) 6.5, Eos % (Auto) 3.8, Baso % (Auto) 0.7, Neut # (Auto) 6.0, Lymph # (Auto) 2.3, [place] # (Auto) 0.6, Eos # (Auto) 0.4, Baso # (Auto) 0.1, PT 12.5, INR 1.17 H, Sodium 138, Potassium 3.9, Chloride 108 H, Carbon Dioxide 24, Anion Gap 9.9, BUN 20, Creatinine 1.30 H, Estimated Creat Clear 49, Estimated GFR 53 L, Est GFR ( Amer) 64, Glucose 132 H, Calcium 9.9, Magnesium 1.9, Total Bilirubin 0.9, AST 28, ALT 9 L, Alkaline Phosphatase 43, Troponin I < 0.01, Total Protein 6.6, Albumin 4.1, Globulin 2.5, Albumin/Globulin Ratio 1.6, Lipase 704 H, Urine Color Dark yellow, Urine Appearance Clear, Urine pH 6.0, Ur Specific [place] >= 1.030, Urine Protein 1+, Urine Glucose (UA) Trace, Urine Ketones Trace, Urine Blood Negative, Urine Nitrate Negative, Urine Bilirubin Negative, Urine Urobilinogen 1.0, Ur Leukocyte Esterase Negative, Urine RBC None, Urine WBC Occasional, Ur Squamous Epith Cells Occasional, Urine Bacteria Trace Orders (Tests/Meds): ED MEDICATIONS Discontinued Medications Generic Name Dose Route Start Last Admin Trade Name Johnq PRN Reason Stop Dose Admin Acetaminophen 1,000 mg 03/03/24 14:27 03/03/24 14:34 Acetaminophen 1,000mg/100ml Vial IV 03/03/24 14:28 1,000 mg ONCE ONE Administration Lactated Ringer's 1,000 mls @ 999 mls/hr 03/03/24 14:27 03/03/24 14:34 Lactated Ringer's 1000 Ml Bag IV 03/03/24 15:27 999 mls/hr .Q1H1M ONE Administration Magnesium Sulfate 2 gm in 50 mls @ 50 mls/hr 03/03/24 15:40 03/03/24 15:51 Magnesium Sulfate 2gm/50ml Premix IV 03/03/24 16:39 50 mls/hr ONCE ONE Administration Iopamidol 100 ml 03/03/24 15:18 03/03/24 15:27 Iopamidol-370 (76%);100ml Bottle IV 03/03/24 15:19 100 ml ONCE ONE Administration Sodium Chloride 50 ml 03/03/24 15:18 03/03/24 15:27 0.9 % Sodium Chloride 50 Ml Vial IV 03/03/24 15:19 50 ml ONCE ONE Administration Sodium Chloride 10 ml 03/03/24 15:18 03/03/24 15:27 Sodium Chloride 0.9% 10ml Syr (Rad Only) IV 03/03/24 15:19 10 ml ONCE ONE Administration ORDERS Category Date Time Status CT angio abdomen pelvis Stat Cat Scan 03/03/24 14:[address] angio chest PE protocol Stat Cat Scan 03/03/24 14:27 Completed CBC w/Auto Diff [Complete Blood Count Auto Diff] Stat Lab 03/03/24 13:37 Completed CMP [Comprehensive Metabolic Panel] Stat Lab 03/03/24 13:37 Completed INR [Prothrombin Time INR] Stat Lab 03/03/24 13:37 Completed Lipase Stat Lab 03/03/24 13:37 Completed Magnesium Stat Lab 03/03/24 13:37 Completed Trop I [Troponin I] Stat Lab 03/03/24 13:37 Completed Troponin I Q3H Lab 03/03/24 17:30 Ordered Troponin I Q3H Lab 03/03/24 20:30 Ordered UA [Urinalysis and Microscopic] Stat Lab 03/03/24 13:37 Completed HEART Score HEART Score: 5 Medical Decision Narrative: In summary patient is a 78-year-old male who presents to the emergency department for evaluation of syncope. Patient is currently normotensive but with a heart rate of 55 at the time of my exam on the bedside monitor that appears to be in normal sinus rhythm satting at 94% on room air with respiratory rate of 12 upon arrival, and afebrile. Physical exam is remarkable for flat affect likely due to his Lewy body dementia but patient is answering questions appropriately. Patient currently otherwise has no chest pain abdominal pain and the remainder of his exam is nonfocal. Differential diagnosis includes cardiogenic syncope, vasovagal syncope, ACS, aortic dissection, polypharmacy etc.. Initial workup will be conducted with hematologic labs CTA of the chest abdomen pelvis, twelve-lead EKG. Initial interventions include crystalloid bolus Tylenol. Initial workup reviewed by me shows an elevated lipase and a troponin of 0.01 magnesium of 1.9 and the remainder of his laboratory investigations are nonactionable. My informal review of his CT scan shows no acute processes radiology read pending. Upon repeat evaluation while patient was under continuous cardiac monitoring and continuous pulse oximetry patient had a rhythm change on the monitor that showed a very fast rate subjective of V. tach or atrial flutter. Given this I had an interactive discussion with cardiology about patient management. Cardiology recommended admission and further workup tomorrow. At that point I had an interactive discussion with Dr. Jaquez who is on-call for Dr. Dye who agreed to admission. Lynnette: EKG independently interpreted. Patient has sinus bradycardia 59 beats a minute. No ST or T wave changes concerning for acute ischemia, SD, QRS intervals within normal limits. Mild QT prolongation for 65 ms. mild leftward axis. Patient kept having changes in rhythm, unknown if it was artifactual or real. Appeared to be atrial flutter versus background tremor. Patient also had concern for ventricular tachycardia and torsades. Patient given 2 g magnesium, pads were placed on patient. Cardiology was contacted and case was discussed, no emergent intervention. Patient's PCP called and patient to be admitted for further workup. I was consulted by the BEATA, and we discussed the complexity of the problems being addressed. I approved the treatment and management plan for this patient?s care in the Emergency Department, thus performing a substantive portion of the medical decision making. Jude Church MD Critical Care <TYSON Rosen - Last Filed: 03/03/24 17:32> Critical Care Time Critical Care Time: No
--- NOTE | 2024-03-03 14:27 | CT_ITS ---
FINAL REPORT TECHNIQUE: Pre-and postcontrast images of the abdomen and pelvis were performed by computed tomography. Extensive 3-D reconstruction images were performed. A CTA was performed. This study was performed with techniques to keep radiation doses as low as reasonably achievable (ALARA). Individualized dose reduction techniques using automated exposure control or adjustment of mA and/or kV according to the patient''s size were employed. CLINICAL HISTORY: Syncope, acute abdominal pain COMPARISON: 01/02/2022 FINDINGS: ABDOMEN/PELVIS: The lung bases are clear. Precontrast images demonstrate no evidence of nephrolithiasis. Note is made of left renal scarring. No adrenal masses are identified. The liver, spleen and pancreas are unremarkable. There is a moderate hiatal hernia. There is mild nonspecific gallbladder wall thickening. The appendix is normal. The prostate is diffusely enlarged. Mild bladder wall thickening is identified. There is a left inguinal hernia containing fat. There are questionable postoperative changes in the upper right inguinal region. Bilateral L5 pars defects are identified with grade 2 anterolisthesis of L5 on S1. Multiple lytic foci are seen in the left iliac bone, stable from multiple CTs. CTA: The abdominal aorta is proper caliber. The SMA, celiac axis, and BOLIVAR are patent. There is no significant stenosis or calcification. The renal arteries are patent bilaterally. The iliac arteries are normal. IMPRESSION: No evidence of renal vascular hypertension or significant renal artery stenosis. Large hiatal hernia. Nonspecific gallbladder wall thickening. Other findings as detailed above. Reviewed, Interpreted and Dictated by Trevor Fischer III, MD Transcribed by Tracy Moeller Authenticated and [facility]
--- NOTE | 2024-03-03 14:27 | CT_ITS ---
FINAL REPORT TECHNIQUE: Thin section axial CT images of the chest were obtained with contrast. Three-D reformatted images were also obtained.This study was performed with techniques to keep radiation doses as low as reasonably achievable (ALARA). Individualized dose reduction techniques using automated exposure control or adjustment of mA and/or kV according to the patient's size were employed. CLINICAL HISTORY: Syncope, acute abdominal pain COMPARISON: None FINDINGS: There is no evidence of pulmonary embolism. There is no evidence of thoracic aortic aneurysm or dissection. There is a large hiatal hernia present. There is otherwise no evidence of mediastinal or hilar mass or adenopathy. There is mild atelectasis in both lower lobes. There are patchy pulmonary ground glass opacities noted. There is a 10 mm nodule in the anteromedial aspect of the left upper lobe. A calcified granuloma is present in the right upper lobe. No localized inflammatory process is seen within the lungs. Limited images of the upper abdomen mild renal scarring. IMPRESSION: No evidence of pulmonary embolism. 10 mm nodule in the anteromedial aspect of the left upper lobe, and would suggest either PET/CT or 3-month follow-up chest CT for further evaluation. Reviewed, Interpreted and Dictated by Trevor Fischer III, MD Transcribed by Candis Shepard Authenticated and [facility]
[2024-03-03] MEDS: LACTATED RINGERS 1000ML 1,000 ML 999 ML IV (14:34)
[2024-03-03] MEDS: ACETAMINOPHEN 1,000MG/100ML VIAL 1000 MG IV (14:34)
--- NOTE | 2024-03-03 14:41 | PC.NURSE ---
pt given urinal for urine sample
[2024-03-03 14:42] LABS: Basophils # 0.1 K/mm3 (0-0.2); Basophils % 0.7 % (0.1-2.0); Eosinophils # 0.4 K/mm3 (0.0-0.4); Eosinophils % 3.8 % (0.1-12.0); Hematocrit 46.3 % (42.0-52.0); Hemoglobin 14.8 g/dL (14.1-18.0); Lymphocytes # 2.3 K/mm3 (0.7-4.5); Lymphocytes % 24.2 % (10-50); Mean Corpuscular HGB Conc 32.1 g/dL (31.8-35.4); Mean Corpuscular Hemoglobin 31.6 pg (27.0-31.2); Mean Corpuscular Volume 98.4 fl (80-94); Mean Platelet Volume 9.2 fl (7.4-10.4); Monocytes # 0.6 K/mm3 (0.1-1.0); Monocytes % 6.5 % (1.7-9.3); Neutrophils % 64.9 % (37.0-80.0); Platelet Count 269 K/mm3 (142-424); Red Blood Count 4.71 M/mm3 (4.60-6.20); Red Cell Distribution Width 15.4 % (11.5-17.5); White Blood Count 9.3 K/mm3 (4.8-10.8)
[2024-03-03 14:43] LABS: Chloride 108 mmol/L (98-107)
[2024-03-03 14:44] LABS: Potassium 3.9 mmoL/L (3.5-5.1); Sodium 138 mmol/L (136-145)
[2024-03-03 14:46] LABS: Alanine Aminotransferase 9 U/L (12-78); Alkaline Phosphatase 43 U/L (38-126); Aspartate Amino Transferase 28 U/L (17-59); Bilirubin,Total 0.9 mg/dl (0.2-1.3); Blood Urea Nitrogen 20 mg/dl (9-20); Creatinine Clearance Estimated 49 mL/min (50-200); Estimated Glomerular Filt Rate 53 ml/min (>60); GFR (African American) 64 ML/MIN (>60)
[2024-03-03 14:47] LABS: Albumin Level 4.1 g/dl (3.5-5.0); Albumin/Globulin Ratio 1.6 (1.1-1.8); Anion Gap 9.9 mEq/L (5-15); Calcium 9.9 mg/dl (8.4-10.2); Carbon Dioxide 24 mmol/L (22.0-30.0); Globulin 2.5 g/dL (1.3-3.2); Glucose 132 mg/dl (74-100); INR 1.17 (0.9-1.1); Magnesium 1.9 mg/dl (1.6-2.3); Prothrombin Time 12.5 seconds (10.1-12.5); Total Protein,Serum 6.6 g/dl (6.3-8.2)
[2024-03-03 14:48] LABS: Lipase 704 U/L (23-300)
[2024-03-03 15:01] LABS: Troponin I < 0.01 ng/ml (0.00-0.034)
[2024-03-03] MEDS: IOPAMIDOL-370 (76%);100ML BOTTLE 100 ML IV (15:27)
[2024-03-03] MEDS: 0.9 % SODIUM CHLORIDE 50 ML VIAL IV (15:27)
[2024-03-03] MEDS: SODIUM CHLORIDE 0.9% 10ML SYR (RAD ONLY) 10 ML IV (15:27)
[2024-03-03 15:40] LABS: Microscopic, Urine URINE MICROSCOPIC (MICROSCOPIC)
[2024-03-03 15:43] LABS: Appearance,Urine CLEAR (Clear); Bilirubin,Urine Negative (Negative); Blood, Urine Negative (Negative); Color,Urine DARK YELLOW (Yellow); Glucose,Urine (UA) TRACE (Negative); Ketones,Urine TRACE (Negative); Leukocyte Esterase,Urine Negative (Negative); Nitrate,Urine Negative (Negative); Protein,Urine 1+ (Negative); Specific Gravity, Urine >= 1.030 (1.005-1.030)
[2024-03-03] MEDS: MAGNESIUM SULFATE IN WATER 2 GM/50 ML PIGGYBACK IV (15:51)
[2024-03-03 16:45] LABS: Bacteria,Urine Trace /lpf; Squamous Epithelial Cell,Urine Occasional #/hpf (0-5); WBC,Urine Occasional #/hpf (0-3)
--- NOTE | 2024-03-03 17:17 | PC.NURSE ---
paged he is integration aide for
--- NOTE | 2024-03-03 17:23 | PC.NURSE ---
Rosalio speaking with Dr. Richardson
--- NOTE | 2024-03-03 17:28 | ECG_ITS ---
APPROVED REPORT Exam: Resting ECG HR:57 bpm ECG Measurements Heart Rate 57 AXES SC 186 P 86 QRSd 121 QRS -26 QT 465 T 75 QTc 459 Conclusion SINUS BRADYCARDIA Electronically signed by : AMELIA GLEASON, 03/03/2024 22:06:00
--- NOTE | 2024-03-03 18:12 | PC.NURSE ---
pt placed on zoll per order
--- NOTE | 2024-03-03 18:17 | PC.NURSE ---
RADHA Cespedes aware of admission.
--- NOTE | 2024-03-03 18:40 | PC.NURSE ---
REport called to Sushma 2nd floor nurse
--- NOTE | 2024-03-03 19:01 | PC.NURSE ---
pt arrived to floor at this time
[2024-03-03 19:08] LABS: Troponin I < 0.01 ng/ml (0.00-0.034)
[2024-03-03 21:19] LABS: Troponin I < 0.01 ng/ml (0.00-0.034)
[2024-03-03] MEDS: ATORVASTATIN 40MG TABLET 80 MG PO (22:10)
[2024-03-03] MEDS: MELATONIN 5MG TABLET 20 MG PO (22:10)
[2024-03-03] MEDS: CARBIDOPA/LEVODOPA 25/100MG TABLET 1.5 EACH PO (22:10)
[2024-03-03] MEDS: RIVAROXABAN 10MG TABLET 10 MG PO (22:11)
[2024-03-04] VITALS: BP 138/74; PULSE 67; PULSE 74; RESP 18; TEMP 37; O2SAT 94
[2024-03-04 04:00] VITALS: BP 171/85; PULSE 61; PULSE 66; RESP 18; TEMP 37.1; O2SAT 96; BMI 27.0
[2024-03-04 08:00] VITALS: BP 157/84; PULSE 60; PULSE 63; RESP 20; O2SAT 97
--- NOTE | 2024-03-04 08:06 | HMH.PHAINT1 ---
Pharmacy Intervention Comments: HOME MEDICATION LIST VERIFIED USING LIST FROM OUTPATIENT PHARMACY
--- NOTE | 2024-03-04 09:00 | P.HP_ITS ---
History of Present Illness *Admission Date: 03/03/24 *Reason for visit:: syncope *History of present illness: Patient presents for evaluation after a syncopal episode. Patient reports that began having abdominal pain that awoke him from sleep last night it persisted for an undetermined amount of time but completely abated after he passed flatus. It has not recurred. Patient began feeling back to his baseline and was on an errand with his son riding in a truck. He got out of the truck to going to the store and had a syncopal episode. He was assisted to the ground by his son and suffered no trauma. Patient's son stated that he was unconscious for approximately 2 minutes. They then presented to the emergency department. Patient has a past medical history of Parkinson's disease, Lewy body dementia, obstructive sleep apnea, obstructive sleep apnea not on CPAP, history of PE currently on Xarelto, history of heart attacks x 2 but no previous history of intervention, hypertension on amlodipine losartan and metoprolol according to his medication list, hyperlipidemia. Additionally patient's is currently in [place] due to a cancer diagnosis and has been so for approximately 2 weeks. Patient states that he has difficulty doing his activities of daily living without her being around. He does have 2 sons that live close and check on him frequently however they are unable to provide full care. When patient's is with him he is fairly independent with her assistance. Patient currently denies chest pain palpitation shortness of breath abdominal pain fever, chills, hemoptysis, hematochezia, melena, nausea, vomiting, diarrhea, or pain anywhere. (above as per ER physician) The patient was evaluated in the emergency room and was placed on a shuffle board operator. He did have a rhythm change that showed a possible V. tach versus atrial flutter. They were also concerned with ventricular tachycardia and torsades, therefore he was given 2 g of magnesium. He was therefore admitted with a cardiology consult. [facility] Disclaimer: The information contained in this section may have been updated after the patient was seen, as this information can be updated by other users. Medical History (Updated 03/04/24 @ 09:06 by TYSON Bowden) Parkinsons disease Lewy body dementia Deviated septum VIRY (obstructive sleep apnea) Kidney stone GERD (gastroesophageal reflux disease) Depression Heart attack Hyperlipidemia Hypertension Surgical History History of cardiac cath Family History Coronary artery disease Hyperlipidemia Cancer Hypertension Social History Smoking Status: Never smoker second hand exposure: Yes alcohol intake: never substance use type: denies use current occupational status: retired Travel in the last 8 weeks: None household members: spouse housing: house caffeine: Yes Review of Systems Constitutional Constitutional: Denies fatigue, Denies headache(s) and Denies weakness Eyes Eyes: Denies blurry vision and Denies diplopia ENT Ears, Nose, Mouth, and Throat: Denies headache(s), Denies nasal congestion, Denies sore throat and Denies vertigo *Cardiovascular Cardiovascular: Denies chest pain, Denies dyspnea and Denies leg edema *Respiratory Respiratory: Denies cough and Denies dyspnea *Gastrointestinal Gastrointestinal: Denies abdominal pain, Denies loose stools, Denies nausea and Denies vomiting *Genitourinary Genitourinary: Denies difficulty urinating and Denies dysuria *Musculoskeletal Musculoskeletal: Denies arthralgias and Denies myalgias *Neurologic Neurologic: Denies headache(s), Denies radicular pain, Denies vertigo, Denies weakness and Reports other (syncope) Endocrine Endocrine: Denies fatigue Meds Home Medications and Allergies Home Medications Medication Instructions Recorded Confirmed Type atorvastatin 80 mg tablet 80 mg PO HS 11/28/17 03/03/24 History citalopram 20 mg tablet 20 mg PO DAILY 11/28/17 03/03/24 History metoprolol tartrate 100 mg tablet 100 mg PO DAILY 11/28/17 03/03/24 History (Lopressor) niacin 500 mg tablet,extended 250 mg PO HS 11/28/17 03/03/24 History release (Slo-Niacin) amlodipine 5 mg tablet 5 mg PO DAILY 01/05/19 03/03/24 History fenofibrate nanocrystallized 145 145 mg PO DAILY 01/06/19 03/03/24 History mg tablet rivaroxaban 10 mg tablet 10 mg PO DAILY Blood thinner 07/22/19 03/04/24 History donepezil 10 mg tablet 10 mg PO HS 11/10/22 03/04/24 History cholecalciferol (vitamin D3) 50 50 mcg PO DAILY Supplement 11/28/22 03/03/24 History mcg (2,000 unit) capsule losartan 50 mg tablet 50 mg PO DAILY 11/28/22 03/03/24 History mecobalamin (vitamin B12) 1,000 1,000 mcg sublingual DAILY 11/28/22 03/03/24 History mcg disintegrating tablet,sublingual potassium chloride 20 mEq 20 meq PO DAILY 12/31/22 03/03/24 History tablet,extended release(part/cryst) melatonin 10 mg tablet 20 mg PO HS sleep 04/08/23 03/03/24 History clonazepam 1 mg tablet 1 mg PO HS 07/23/23 03/03/24 History mirabegron 50 mg tablet,extended 50 mg PO DAILY 07/23/23 03/03/24 History release 24 hr (Myrbetriq) carbidopa 25 mg-levodopa 100 mg 1.5 tab PO TID parkinsonian 11/20/23 03/03/24 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 #135 tabs entacapone 200 mg tablet 200 mg PO TID 03/03/24 03/03/24 History metoprolol tartrate 50 mg tablet 50 mg PO HS 03/04/24 03/04/24 History tamsulosin 0.4 mg capsule 0.4 mg PO HS 03/04/24 03/04/24 History New Prescriptions to Start Prescriptions: Allergies Allergy/AdvReac Type Severity Reaction Status Date / Time metoclopramide Allergy Verified 11/19/23 13:53 Exam Data for Last 24 hours Vital signs and Labs for Last 24 Hours: Temp Pulse Resp BP Pulse Ox O2 Del Method 98.8 F 63 20 157/84 H 97 Room Air 03/04/24 04:00 03/04/24 08:00 03/04/24 08:00 03/04/24 08:00 03/04/24 08:00 03/04/24 08:00 Laboratory Results - last 24 hr 03/03/24 13:37: WBC 9.3, RBC 4.71, Hgb 14.8, Hct 46.3, MCV 98.4 H, MCH 31.6 H, MCHC 32.1, RDW 15.4, Plt Count 269, MPV 9.2, Neut % (Auto) 64.9, Lymph % (Auto) 24.2, [facility] % (Auto) 6.5, Eos % (Auto) 3.8, Baso % (Auto) 0.7, Neut # (Auto) 6.0, Lymph # (Auto) 2.3, [facility] # (Auto) 0.6, Eos # (Auto) 0.4, Baso # (Auto) 0.1, PT 12.5, INR 1.17 H, Sodium 138, Potassium 3.9, Chloride 108 H, Carbon Dioxide 24, Anion Gap 9.9, BUN 20, Creatinine 1.30 H, Estimated Creat Clear 49, Estimated G FR 53 L, Est GFR ( Amer) 64, Glucose 132 H, Calcium 9.9, Magnesium 1.9, Total Bilirubin 0.9, AST 28, ALT 9 L, Alkaline Phosphatase 43, Troponin I < 0.01, Total Protein 6.6, Albumin 4.1, Globulin 2.5, Albumin/Globulin Ratio 1.6, Lipase 704 H, Urine Color Dark yellow, Urine Appearance Clear, Urine pH 6.0, Ur Specific Morse >= 1.030, Urine Protein 1+, Urine Glucose (UA) Trace, Urine Ketones Trace, Urine Blood Negative, Urine Nitrate Negative, Urine Bilirubin Negative, Urine Urobilinogen 1.0, Ur Leukocyte Esterase Negative, Urine RBC None, Urine WBC Occasional, Ur Squamous Epith Cells Occasional, Urine Bacteria Trace 03/03/24 18:08: Troponin I < 0.01 03/03/24 20:45: Troponin I < 0.01 I & O for Last 24 hours: Intake & Output 03/01/24 03/02/24 03/03/24 03/04/24 11:59 11:59 11:59 11:59 Intake Total 360 / 360 Output Total 0 / 0 Balance 360 / 360 Weight 162 lb 6.4 oz Constitutional Constitutional: no acute distress *Routine HEENT Exam Head: Present normocephalic and atraumatic Eye: Present EOMI and PERRL ENT: Present mucous membranes moist *Routine Neck Exam Neck: Present supple and full ROM *Routine Respiratory Exam Respiratory: Present CTA bilaterally *Routine Cardiovascular Exam Cardiovascular: Present RRR *Routine Abdominal Exam Abdominal: Present soft and normoactive bowel sounds; Absent tenderness *Routine Rectal Exam Rectal:: deferred *Routine Genitalia Exam Genitalia:: deferred *Routine Extremities Exam Extremities: Absent cyanosis, clubbing or edema *Routine Skin Exam Skin: Present intact; Absent erythema *Routine Neurological Exam Neurological: Present alert, oriented X3 and tremors Additional Findings:: Abdominal/Pelvic CTA - No evidence of renal vascular hypertension or significant renal artery stenosis. Large hiatal hernia. Nonspecific gallbladder wall thickening. Other findings as detailed above. Chest CTA - No evidence of pulmonary embolism. 10 mm nodule in the anteromedial aspect of the left upper lobe, and would suggest either PET/CT or 3-month follow-up chest CT for further evaluation. Assessment and Plan *Assessment and plan (1) Arrhythmia: Status: Acute Qualifiers: Arrhythmia type: unspecified cardiac arrhythmia Qualified Code(s): I49.9 - Cardiac arrhythmia, unspecified Category: Medical Code(s): I49.9 - Cardiac arrhythmia, unspecified (2) Elevated lipase: Status: Acute Category: Medical Code(s): R74.8 - Abnormal levels of other serum enzymes (3) Lung nodule: Status: Acute Category: Medical Code(s): R91.1 - Solitary pulmonary nodule (4) Syncope and collapse: Status: Acute Category: Medical Code(s): R55 - Syncope and collapse (5) Severe sleep apnea: Status: Chronic Category: Medical Code(s): G47.30 - Sleep apnea, unspecified (6) Parkinsonian syndrome: 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 Qualified Code(s): G21.8 - Other secondary parkinsonism Category: Medical Code(s): G20 - Parkinson's disease (7) History of pulmonary embolism: Status: Acute Category: Medical Code(s): Z86.711 - Personal history of pulmonary embolism (8) HTN (hypertension): Status: Acute Qualifiers: Hypertension type: essential hypertension Qualified Code(s): I10 - Essential (primary) hypertension Category: Medical Code(s): I10 - Essential (primary) hypertension (9) Hyperlipidemia: Status: Acute Category: Medical Code(s): E78.5 - Hyperlipidemia, unspecified (10) Coronary artery disease: Status: Acute Category: Medical Code(s): I25.10 - Atherosclerotic heart disease of [place] coronary artery without angina pectoris Plan Patient was admitted and placed on telemetry. Cardiology has been consulted. He has had no further syncopal episodes. Will discuss further care with Dr. Dorado. Dr. Dorado entry - Saw patient, agree with above note.
--- NOTE | 2024-03-04 09:59 | CA_ITS ---
APPROVED REPORT EXAM: Comprehensive 2D, Doppler, and color-flow Echocardiogram Mechanical Engineering Technologist: Tasha Guerrier RT(R) Ht: 5 ft 5 in Wt: 174lbs BSA: 1.86 BP: 157/84 mmHg Indications: syncope, HTN, hyperlipidemia, VIRY, parkinson's, GERD, hx TX 2D Dimensions Left Atrium 1.98 cm M: 3.0 - 4.0 LVEF (Cummings's) 45.60 % M: 52 - 72 LVOT 2.08 cm (M/F) 1.5-2.5 LV Volume 115.00 mL M: 62 - 150 LV Volume Index 61.5 mL/m2 M: 34 - 74 EF AP4 44.80 % EF AP2 38.1 % EF BP 45.6 % GL Strain -11.6 % M-Mode Dimensions RVDd 2.24 cm (0.9-2.6) LVDd 5.17 cm (3.5-5.7) Ao Diam 2.59 cm (2.0-3.7) LVDs 4.03 cm (3.5-5.7) IVSd 0.84 cm (0.6-1.1) PWd 0.76 cm (0.6-1.1) EF (Teich) 44.20% FS 22.10% EDV (Teich) 127.80 mL ESV (Teich) 71.30 mL LV Diastology E Decel Time 175 (160-240 msec) E/A Ratio 1.1 MED E' 6.8 (>= 7 cm/sec) E'/MED E' Ratio 12.00 (<= 14) LAT E' 8.7 (>= 10 cm/sec) E/LAT E' Ratio 9.38 (<= 14) Aortic Valve LVOT Max 149.0 (70-110 cm/s) ANGELICA Index 1.39 cm2/m2 LVOT VTI 34.21 cm AoV Peak Arnulfo. 218.0 (50-130 cm/s) AI PHT 803.00 ms AO Mean GR. 9.40 (<5 mmHg) AO VTI 45.1 (18-25 cm) ANGELICA (VTI) 2.58 (2.5-4.5 cm2) Mitral Valve MV E Max Arnulfo. 82.0 (40-130 cm/s) MV A Velocity 74.0 (40-130 cm/s) E/A Ratio 1.10 MV Decel. Time 175 (160-240 ms) Left Ventricle The left ventricle is normal size. The left ventricular systolic function is normal. The left ventricular ejection fraction is within the normal range. There is marked increase in LV wall thickness (IVSd 1.5 cm). No evidence of LVOT obstruction at rest or with Valsalva. There is normal LV segmental wall motion. Transmitral Doppler flow pattern suggests impaired LV relaxation. LVEF is 65%. Right Ventricle The right ventricle is normal size. The right ventricular systolic function is normal. Atria The left atrium size is normal. The right atrium size is normal. The interatrial septum is not well-visualized. Aortic Valve The aortic valve is mildly thickened. Moderate aortic regurgitation. There is no aortic valvular stenosis. Mitral Valve There is no systolic anterior motion of the mitral valve leaflets. The mitral valve leaflets are mildly thickened. No evidence of mitral valve stenosis. Mild mitral regurgitation. Tricuspid Valve The tricuspid valve leaflets are thin and pliable. Trace tricuspid regurgitation. There is insufficient TR jet to estimate RVSP. Pulmonic Valve The pulmonary valve is normal in structure. Trace pulmonic regurgitation. Great Vessels The aortic root is normal in size. The ascending aorta is not well-visualized. The IVC is not well-visualized. Pericardium There is no pericardial effusion. Other Information Study Quality: Fair Conclusion Normal biventricular systolic function. Mild increase in LV wall thickness (IVSd 1.5 cm). Moderate AI. Mild MR, mild [place]. In the setting of increased LV wall thickness and presence of symptoms, further evaluation with outpatient cardiac MRI (HCM protocol) is recommended. Electronically signed by : Petra Gerard MD 03/04/2024 13:05:29
[2024-03-04] MEDS: CITALOPRAM 20MG TABLET 20 MG PO (10:27)
[2024-03-04] MEDS: CARBIDOPA/LEVODOPA 25/100MG TABLET 1.5 EACH PO (10:29)
--- NOTE | 2024-03-04 11:32 | P.CONCA_ITS ---
History of Present Illness History of Present Illness Consult date: 03/04/24 Requesting physician: Neville Dye Chief complaint: syncope History of present illness: This is a 78 year old white male with past medical history of VIRY, HTN, HLD, hx of PE on xarelto, normal echo and mild nonflow limiting CAD in 2019 and Lewy body dementia/Parkinson's disease presented to emergency department with episode of syncope yesterday. Patient reports he was running errands with his son when he got out of the truck and felt dizzy and like his legs were going to give out on him. The next thing he recalls he was in the truck on his way to the emergency department. Son reports patient collapsed and he was able to support him and get back into the truck. Upon arrival to emergency department patient was normotensive with a heart rate of 55. Labs as follow: WBC 9.3, hemoglobin 14.8, sodium 138, potassium 3.9, creatinine 1.3, glucose 132, serial troponins negative lipase 704. Patient underwent a CTA of his chest which was negative for PE but did show 10 mm nodule in anterior medial aspect of the left upper lobe, recommended 3-month follow-up. A CTA abdomen pelvis was obtained which showed no evidence of renovascular hypertension or significant renal artery stenosis. Large hiatal hernia present. Nonspecific gallbladder wall thickening. Per ER note patient had a rhythm change while on cardiac monitoring in the ER. Note reports rate was very fast concerning for V. tach/ atrial flutter/artifact no rhythm strips are available for review. Patient was admitted for further observation and cardiology evaluation. EKGs have been reviewed and show normal sinus rhythm. Patient denies any chest pain, shortness of breath, palpitation or dizziness. No further episodes of syncope reported. [facility] Disclaimer: The information contained in this section may have been updated after the patient was seen, as this information can be updated by other users. Medical History (Updated 03/04/24 @ 09:06 by TYSON Bowden) Parkinsons disease Lewy body dementia Deviated septum VIRY (obstructive sleep apnea) Kidney stone GERD (gastroesophageal reflux disease) Depression Heart attack Hyperlipidemia Hypertension Surgical History History of cardiac cath Family History Coronary artery disease Hyperlipidemia Cancer Hypertension Social History Smoking Status: Never smoker second hand exposure: Yes alcohol intake: never substance use type: denies use current occupational status: retired Travel in the last 8 weeks: None household members: spouse housing: house caffeine: Yes Review of Systems Constitutional Constitutional: Denies headache(s) and Denies weakness ENT Ears, Nose, Mouth, and Throat: Denies headache(s) and Denies vertigo *Neurologic Neurologic: Denies headache(s), Denies radicular pain, Denies vertigo, Denies weakness and Reports other (syncope) Exam Data for Last 24 hours Vital signs and Labs for Last 24 Hours: Temp Pulse Resp BP Pulse Ox O2 Del Method 98.8 F 63 20 157/84 H 97 Room Air 03/04/24 04:00 03/04/24 08:00 03/04/24 08:00 03/04/24 08:00 03/04/24 08:00 03/04/24 11:00 Laboratory Results - last 24 hr 03/03/24 13:37: WBC 9.3, RBC 4.71, Hgb 14.8, Hct 46.3, MCV 98.4 H, MCH 31.6 H, MCHC 32.1, RDW 15.4, Plt Count 269, MPV 9.2, Neut % (Auto) 64.9, Lymph % (Auto) 24.2, [place] % (Auto) 6.5, Eos % (Auto) 3.8, Baso % (Auto) 0.7, Neut # (Auto) 6.0, Lymph # (Auto) 2.3, [place] # (Auto) 0.6, Eos # (Auto) 0.4, Baso # (Auto) 0.1, PT 12.5, INR 1.17 H, Sodium 138, Potassium 3.9, Chloride 108 H, Carbon Dioxide 24, Anion Gap 9.9, BUN 20, Creatinine 1.30 H, Estimated Creat Clear 49, Estimated GFR 53 L, Est GFR ( Amer) 64, Glucose 132 H, Calcium 9.9, Magnesium 1.9, Total Bilirubin 0.9, AST 28, ALT 9 L, Alkaline Phosphatase 43, Troponin I < 0.01, Total Protein 6.6, Albumin 4.1, Globulin 2.5, Albumin/Globulin Ratio 1.6, Lipase 704 H, Urine Color Dark yellow, Urine Appearance Clear, Urine pH 6.0, Ur Specific [place] >= 1.030, Urine Protein 1+, Urine Glucose (UA) Trace, Urine Ketones Trace, Urine Blood Negative, Urine Nitrate Negative, Urine Bilirubin Negative, Urine Urobilinogen 1.0, Ur Leukocyte Esterase Negative, Urine RBC None, Urine WBC Occasional, Ur Squamous Epith Cells Occasional, Urine Bacteria Trace 03/03/24 18:08: Troponin I < 0.01 03/03/24 20:45: Troponin I < 0.01 I & O for Last 24 hours: Intake & Output 03/01/24 03/02/24 03/03/24 03/04/24 23:59 23:59 23:59 23:59 Intake Total 360 / 360 Output Total 0 / 0 0 / 0 Balance 0 / 0 360 / 360 Weight 165 lb 162 lb 6.4 oz Constitutional Constitutional: no acute distress *Routine Respiratory Exam Respiratory: Present CTA bilaterally and symmetric chest movement *Routine Cardiovascular Exam Cardiovascular: Present RRR, Normal S1 and Normal S2 *Routine Abdominal Exam Abdominal: Present soft and normoactive bowel sounds; Absent tenderness *Routine Extremities Exam Extremities: Present full ROM and normal capillary refill; Absent edema *Routine Skin Exam Skin: Present intact, dry and warm Detailed Neck Exam: Thyroids Thyroid: Absent bruit Meds Home Medications and Allergies Home Medications Medication Instructions Recorded Confirmed Type atorvastatin 80 mg tablet 80 mg PO HS 11/28/17 03/03/24 History citalopram 20 mg tablet 20 mg PO DAILY 11/28/17 03/03/24 History metoprolol tartrate 100 mg tablet 100 mg PO DAILY 11/28/17 03/03/24 History (Lopressor) niacin 500 mg tablet,extended 250 mg PO HS 11/28/17 03/03/24 History release (Slo-Niacin) amlodipine 5 mg tablet 5 mg PO DAILY 01/05/19 03/03/24 History fenofibrate nanocrystallized 145 145 mg PO DAILY 01/06/19 03/03/24 History mg tablet rivaroxaban 10 mg tablet 10 mg PO DAILY Blood thinner 07/22/19 03/04/24 History donepezil 10 mg tablet 10 mg PO HS 11/10/22 03/04/24 History cholecalciferol (vitamin D3) 50 50 mcg PO DAILY Supplement 11/28/22 03/03/24 History mcg (2,000 unit) capsule losartan 50 mg tablet 50 mg PO DAILY 11/28/22 03/03/24 History mecobalamin (vitamin B12) 1,000 1,000 mcg sublingual DAILY 11/28/22 03/03/24 History mcg disintegrating tablet,sublingual potassium chloride 20 mEq 20 meq PO DAILY 12/31/22 03/03/24 History tablet,extended release(part/cryst) melatonin 10 mg tablet 20 mg PO HS sleep 04/08/23 03/03/24 History clonazepam 1 mg tablet 1 mg PO HS 07/23/23 03/03/24 History mirabegron 50 mg tablet,extended 50 mg PO DAILY 07/23/23 03/03/24 History release 24 hr (Myrbetriq) carbidopa 25 mg-levodopa 100 mg 1.5 tab PO TID parkinsonian 11/20/23 03/03/24 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 #135 tabs entacapone 200 mg tablet 200 mg PO TID 03/03/24 03/03/24 History metoprolol tartrate 50 mg tablet 50 mg PO HS 03/04/24 03/04/24 History tamsulosin 0.4 mg capsule 0.4 mg PO HS 03/04/24 03/04/24 History New Prescriptions to Start Prescriptions: Allergies Allergy/AdvReac Type Severity Reaction Status Date / Time metoclopramide Allergy Verified 11/19/23 13:53 Assessment and Plan *Assessment and plan (1) Syncope and collapse: Status: Acute Category: Medical Code(s): R55 - Syncope and collapse (2) Arrhythmia: Status: Acute Qualifiers: Arrhythmia type: unspecified cardiac arrhythmia Qualified Code(s): I49.9 - Cardiac arrhythmia, unspecified Category: Medical Code(s): I49.9 - Cardiac arrhythmia, unspecified Plan Syncope x 1 Questionable arrhythmias noted in ER EKG upon presentation to emergency department was normal sinus rhythm at a rate of 59, repeat shows sinus bradycardia rate of 57 Serial troponins negative Mild nonflow limiting left heart catheterization 2019. Historically normal ejection fraction No rhythm strips available for review of tachyarrhythmia CTA chest negative for PE Orthostatic vitals negative Echocardiogram shows normal biventricular systolic function, mild increase in LV wall thickness IVSd 1.5 cm, moderate AR. Mild MR mild DC. In the setting of increased LV wall thickness and presence of symptoms, further evaluation with cardiac MRI HCM protocol is recommended. This can be done outpatient 2 week event monitor Hypertension Continue losartan 50, amlodipine 5 mg and metoprolol tartrate 100 mg daily Hyperlipidemia LDL goal less than 100. LDL not on file. On statin History of pulmonary embolism CTA negative for PE Continue Xarelto CV summary 03/04/2024: Patient is CV stable for discharge home. Please have patient discharged in a 2-week event monitor to further evaluate for arrhythmia. Patient will need cardiology clinic follow-up in 1 week and will need an outpatient cardiac MRI scheduled at that time. Patient advised no driving until cleared by cardiology. Continue above listed medications.
[2024-03-04 12:00] VITALS: BP 138/90; BP 143/78; BP 178/100; PULSE 60; PULSE 70; RESP 22; TEMP 36.6; O2SAT 95
[2024-03-04] MEDS: PT OWN MED *LOSARTAN 50 MG TAB 1 EACH PO (13:50)
[2024-03-04] MEDS: ENTACAPONE 200 MG 1 EACH PO (13:51)
[2024-03-04] MEDS: PT OWN MED *AMLODIPINE 5 MG TAB 1 EACH PO (13:54)
[2024-03-04] MEDS: CARBIDOPA LEVODOPA 1.5 EACH PO (13:55)
[2024-03-04 16:00] VITALS: BP 140/89; PULSE 67; PULSE 70; RESP 20; TEMP 36.7; O2SAT 98
--- NOTE | 2024-03-04 17:30 | PC.NURSE ---
Pt A&O x3, currently sitting on the side of bed eating dinner. Has had elevated BP this AM. Home meds restarted. VS currently stable. No complaints stated. Pt wants to know when he is going home. Call light within reach.
--- NOTE | 2024-03-04 17:38 | PC.NURSE ---
RT notified that pt will be DC and 2 week event monitor ordered.
--- NOTE | 2024-03-06 14:12 | CARE MANAGER ---
Contacted patient's related to hospital discharge. She states he is doing well. Denies questions or concerns and has appointment scheduled next with cardiology. They will call to make appt with Dr. Dye. NATHAN Grant
--- NOTE | 2024-03-09 22:50 | EXP.DC.SUM ---
General Admission date:: 03/03/24 Discharge date: 03/04/24 HPI HPI HPI: Patient presents for evaluation after a syncopal episode. Patient reports that began having abdominal pain that awoke him from sleep last night it persisted for an undetermined amount of time but completely abated after he passed flatus. It has not recurred. Patient began feeling back to his baseline and was on an errand with his son riding in a truck. He got out of the truck to going to the store and had a syncopal episode. He was assisted to the ground by his son and suffered no trauma. Patient's son stated that he was unconscious for approximately 2 minutes. They then presented to the emergency department. Patient has a past medical history of Parkinson's disease, Lewy body dementia, obstructive sleep apnea, obstructive sleep apnea not on CPAP, history of PE currently on Xarelto, history of heart attacks x 2 but no previous history of intervention, hypertension on amlodipine losartan and metoprolol according to his medication list, hyperlipidemia. Additionally patient's is currently in [place] due to a cancer diagnosis and has been so for approximately 2 weeks. Patient states that he has difficulty doing his activities of daily living without her being around. He does have 2 sons that live close and check on him frequently however they are unable to provide full care. When patient's is with him he is fairly independent with her assistance. Patient currently denies chest pain palpitation shortness of breath abdominal pain fever, chills, hemoptysis, hematochezia, melena, nausea, vomiting, diarrhea, or pain anywhere. (above as per ER physician) The patient was evaluated in the emergency room and was placed on a playground monitor. He did have a rhythm change that showed a possible V. tach versus atrial flutter. They were also concerned with ventricular tachycardia and torsades, therefore he was given 2 g of magnesium. He was therefore admitted with a cardiology consult. Hospital Course Hospital Course Hospital Course: The patient's abdominal pelvic CTA showed no evidence of renal vascular hypertension or significant renal artery stenosis. There was a large hiatal hernia and nonspecific gallbladder wall thickening. The chest CTA showed no evidence of PE. There was a 10 mm nodule in the anterior lateral medial aspect of the left upper lobe which radiology felt would need a PET/CT follow-up. The patient was seen in consultation by cardiology and they felt he was stable for discharge home with a 2-week event monitor to further evaluate his arrhythmia. They wanted to follow-up with him in 1 week in the cardiology clinic and felt he would need outpatient cardiac MRI. They also advised no driving until cleared by cardiology. Exam Data for Last 24 hours Vital signs and Labs for Last 24 Hours: Temp Pulse Resp BP Pulse Ox O2 Del Method 98.1 F 67 20 140/89 98 Room Air 03/04/24 16:00 03/04/24 16:00 03/04/24 16:00 03/04/24 16:00 03/04/24 16:00 03/04/24 17:00 Narrative: Constitutional Constitutional: no acute distress *Routine HEENT Exam Head: Present normocephalic and atraumatic Eye: Present EOMI and PERRL ENT: Present mucous membranes moist *Routine Neck Exam Neck: Present supple and full ROM *Routine Respiratory Exam Respiratory: Present CTA bilaterally *Routine Cardiovascular Exam Cardiovascular: Present RRR *Routine Abdominal Exam Abdominal: Present soft and normoactive bowel sounds; Absent tenderness *Routine Rectal Exam Rectal:: deferred *Routine Genitalia Exam Genitalia:: deferred *Routine Extremities Exam Extremities: Absent cyanosis, clubbing or edema *Routine Skin Exam Skin: Present intact; Absent erythema *Routine Neurological Exam Neurological: Present alert, oriented X3 and tremors DS: Diagnosis Discharge Diagnosis (1) Syncope and collapse: Status: Acute Code(s): R55 - Syncope and collapse (2) Arrhythmia: Status: Acute Code(s): I49.9 - Cardiac arrhythmia, unspecified Qualifiers: Arrhythmia type: unspecified cardiac arrhythmia Qualified Code(s): I49.9 - Cardiac arrhythmia, unspecified Meds Home Medications and Allergies Home Medications Medication Instructions Recorded Confirmed Type atorvastatin 80 mg tablet 80 mg PO HS 11/28/17 03/03/24 History citalopram 20 mg tablet 20 mg PO DAILY 11/28/17 03/03/24 History metoprolol tartrate 100 mg tablet 100 mg PO DAILY 11/28/17 03/03/24 History (Lopressor) niacin 500 mg tablet,extended 250 mg PO HS 11/28/17 03/03/24 History release (Slo-Niacin) amlodipine 5 mg tablet 5 mg PO DAILY 01/05/19 03/03/24 History fenofibrate nanocrystallized 145 145 mg PO DAILY 01/06/19 03/03/24 History mg tablet rivaroxaban 10 mg tablet 10 mg PO DAILY Blood thinner 07/22/19 03/04/24 History donepezil 10 mg tablet 10 mg PO HS 11/10/22 03/04/24 History cholecalciferol (vitamin D3) 50 50 mcg PO DAILY Supplement 11/28/22 03/03/24 History mcg (2,000 unit) capsule losartan 50 mg tablet 50 mg PO DAILY 11/28/22 03/03/24 History mecobalamin (vitamin B12) 1,000 1,000 mcg sublingual DAILY 11/28/22 03/03/24 History mcg disintegrating tablet,sublingual potassium chloride 20 mEq 20 meq PO DAILY 12/31/22 03/03/24 History tablet,extended release(part/cryst) melatonin 10 mg tablet 20 mg PO HS sleep 04/08/23 03/03/24 History clonazepam 1 mg tablet 1 mg PO HS 07/23/23 03/03/24 History mirabegron 50 mg tablet,extended 50 mg PO DAILY 07/23/23 03/03/24 History release 24 hr (Myrbetriq) entacapone 200 mg tablet 200 mg PO TID 03/03/24 03/03/24 History metoprolol tartrate 50 mg tablet 50 mg PO HS 03/04/24 03/04/24 History tamsulosin 0.4 mg capsule 0.4 mg PO HS 03/04/24 03/04/24 History carbidopa 25 mg-levodopa 100 mg 1.5 tab PO TID parkinsonian 03/06/24 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 #135 tabs New Prescriptions to Start Prescriptions: Allergies Allergy/AdvReac Type Severity Reaction Status Date / Time metoclopramide Allergy Verified 11/19/23 13:53 Discharge Plan Disposition Patient Disposition: Home, Self-Care Condition: Fair Follow up Plan Follow up with: Neville Dye MD [Primary Care Provider] - 03/26/24 (please call for appointment) Reese Gerard MD [Staff Physician] - 03/12/24 (please call for appointment) Prescriptions/Medication Reconciliation: Continued losartan 50 mg tablet 50 mg PO DAILY mecobalamin (vitamin B12) 1,000 mcg tablet,disintegrating 1,000 mcg sublingual DAILY Rx Instructions: place tablet under tongue and allow to dissolve for at least30 secs before swallowing cholecalciferol (vitamin D3) 50 mcg (2,000 unit) capsule 50 mcg PO DAILY potassium chloride 20 mEq tablet,ER particles/crystals 20 meq PO DAILY melatonin 10 mg tablet 20 mg PO HS clonazepam 1 mg tablet 1 mg PO HS Patient Comments: TAKE 1 TABLET 1 TIME EACH DAY AT BEDTIME Myrbetriq 50 mg tablet extended release 24 hr 50 mg PO DAILY Patient Comments: TAKE 1 TABLET 1 TIME EACH DAY entacapone 200 mg Tablet 200 mg PO TID metoprolol tartrate 50 mg Tablet 50 mg PO HS tamsulosin 0.4 mg capsule 0.4 mg PO HS Patient Comments: TAKE 1 CAPSULE 1 TIME EACH DAY atorvastatin 80 MG tablet 80 mg PO HS metoprolol tartrate [Lopressor] 100 MG tablet 100 mg PO DAILY citalopram 20 MG tablet 20 mg PO DAILY niacin [Slo-Niacin] 500 MG tablet extended release 250 mg PO HS amlodipine 5 MG tablet 5 mg PO DAILY fenofibrate nanocrystallized 145 MG tablet 145 mg PO DAILY Patient Comments: TAKE 1 TABLET ONCE A DAY rivaroxaban 10 MG tablet 10 mg PO DAILY donepezil 10 mg tablet 10 mg PO HS Patient Comments: TAKE 1 TABLET 1 TIME EACH DAY AT BEDTIME No Action carbidopa-levodopa 25-100 mg tablet 1.5 tab PO TID 30 Days Qty: 135 2RF Problem Reconciliation Problems Reviewed?: Yes Patient Discharge Instructions ACTIVITY: Limited activity DIET: continue same diet Additional Instructions: No driving, 2 week cardiac event monitor Patient Instructions: DI for Syncope in Adults (Fainting) Providers Primary Care Provider: Neville Dye Admit Provider: Mihai Richardson Attending Provider: Neville Dye
== END 2024-03-04 18:21 | disposition home or self-care (01) ==
LOC: ER 17:32 → 2ND 21:17
PROVIDERS: Physician Assistant; Admitting Provider Internal Medicine Adolescent Medicine; Emergency Provider Emergency Medicine; PCP Family Medicine; Visit Provider Family Medicine
DX: R55 Syncope and collapse (principal); I49.9 Cardiac arrhythmia, unspecified; R91.1 Solitary pulmonary nodule; Z86.711 Personal history of pulmonary embolism; I10 Essential (primary) hypertension; E78.5 Hyperlipidemia, unspecified; I25.10 Atherosclerotic heart disease of native coronary artery without angina pectoris; G20.A1 Parkinson's disease without dyskinesia, without mention of fluctuations; F02.80 Dementia in other diseases classified elsewhere, unspecified severity, without behavioral disturbance, psychotic disturbance, mood disturbance, and anxiety; G47.33 Obstructive sleep apnea (adult) (pediatric); I25.2 Old myocardial infarction; F32.A Depression, unspecified
CPT/HCPCS: 36415; 71275; 74174; 80053; 81001; 83690; 83735; 84484; 85025; 85610; 93005; 93270; 93306; 99285; G0378; J0131; J3475; Q9967

== ENCOUNTER 2025-01-19 16:56 | Emergency (ER) | payer MEDICARE, MEDICAID, SELFPAY ==
[2025-01-19] VITALS (16 sets, daily range): BP systolic 106–159; BP diastolic 68–92; PULSE 52–78; RESP 12–22; TEMP 36.6–37.3; O2SAT 92–99; BMI 26.8
--- NOTE | 2025-01-19 17:10 | CT_ITS ---
PROCEDURE INFORMATION: Exam: CT Head Without Contrast Exam date and time: 01/19/2025 6:53 PM Age: 79 years old Clinical indication: Altered mental status/memory loss TECHNIQUE: Imaging protocol: Computed tomography of the head without contrast. Radiation optimization: All CT scans at this facility use at least one of these dose optimization techniques: automated exposure control; mA and/or kV adjustment per patient size (includes targeted exams where dose is matched to clinical indication); or iterative reconstruction. COMPARISON: MR HEAD/BRAIN WO CON 12/03/2022 7:38 AM FINDINGS: Brain: Mild diffuse cerebral atrophy is consistent with this patient's age. The visualized basilar cisterns are patent. The cortical/white matter interfaces are preserved throughout the brain. There is no evidence of mass, mass effect or midline shift. There is no evidence of acute hemorrhage within the brain parenchyma or the subarachnoid space. The craniocervical junction is within range of normal. There are patchy mild areas of diminished density in the periventricular and subcortical white matter bilaterally which are nonspecific, however likely represent chronic small vessel ischemic change. If symptoms persist, correlation with MRI is advised. Cerebral ventricles: The ventricular system is normal in size and distribution. Paranasal sinuses: There is leftward nasal septal deviation. There is a 6 mm left frontal osteoma. There is minor mucoperiosteal thickening involving the inferior frontal sinuses bilaterally. Minor mucoperiosteal thickening involves a few scattered ethmoid air cells bilaterally. There is trace mucoperiosteal thickening involving the bilateral sphenoid sinuses. Mastoid air cells: The mastoid sinuses are normal. Orbital cavities: The orbits are normal. Bones: There is no evidence of acute fracture. Moderate degenerative changes involve the TMJ bilaterally. Soft tissues: No soft tissue swelling is identified. IMPRESSION: 1. No acute intracranial abnormality. Chronic and senescent changes. 2. Minor paranasal sinus disease.
--- NOTE | 2025-01-19 17:10 | XR_ITS ---
PROCEDURE INFORMATION: Exam: XR Chest Exam date and time: 01/19/2025 5:40 PM Age: 79 years old Clinical indication: Shortness of breath; Additional info: Shortness of air TECHNIQUE: Imaging protocol: Radiologic exam of the chest. Views: 1 view. COMPARISON: CT ANGIO CHEST PE PROTOCOL 03/03/2024 3:17 PM FINDINGS: Lungs: Mild bibasilar atelectasis. Questionable infiltrate versus atelectasis within the left lung base/retrocardiac region. Pleural spaces: Unremarkable. No pleural effusion. No pneumothorax. Heart/Mediastinum: Very large hiatal hernia measuring at least 14 cm. Bones/joints: Unremarkable. IMPRESSION: 1. Mild bibasilar atelectasis. Questionable infiltrate versus atelectasis within the left lung base/retrocardiac region. Lateral view may be of value 2. Very large hiatal hernia measuring at least 14 cm.
--- NOTE | 2025-01-19 17:10 | CT_ITS ---
PROCEDURE INFORMATION: Exam: CT Abdomen And Pelvis With Contrast Exam date and time: 01/19/2025 7:00 PM Age: 79 years old Clinical indication: Abdominal pain; Generalized; Additional info: Poor p. O. Intake, abd pain/distention TECHNIQUE: Imaging protocol: Computed tomography of the abdomen and pelvis with contrast. Radiation optimization: All CT scans at this facility use at least one of these dose optimization techniques: automated exposure control; mA and/or kV adjustment per patient size (includes targeted exams where dose is matched to clinical indication); or iterative reconstruction. Contrast material: ISOVUE; Contrast volume: 75 ml; Contrast route: IV; COMPARISON: CT ANGIO ABDOMEN PELVIS 03/03/2024 3:17 PM FINDINGS: Lungs: Mild bibasilar atelectasis. Diaphragm: Large hiatal hernia. Hiatal hernia measures 13 cm. Liver: Moderate diffuse hepatic steatosis is identified. Liver hemangioma measures 2.2 cm. Gallbladder and biliary ducts: Normal. No calcified stones. No ductal dilation. Pancreas: The pancreas is normal. Spleen: The spleen is normal. Adrenal glands: The adrenal glands appear within normal limits. Kidneys and ureters: The kidneys are normal. Stomach and bowel: Unremarkable. No obstruction. No mucosal thickening. Appendix: No evidence of appendicitis. Intraperitoneal space: No free air. No evidence for focal fluid collection or ascites. No evidence for omental thickening. Vasculature: Moderate atherosclerotic calcifications of the aorta. Lymph nodes: Unremarkable. No pathologically enlarged lymph nodes are identified. Urinary bladder: The bladder appears within normal limits. No wall thickening. Reproductive: Mild enlargement of the prostate gland. Bones/joints: Bilateral pars interarticularis defects are present at L5. There is associated grade 1 anterolisthesis. Soft tissues: Unremarkable. IMPRESSION: 1. Large hiatal hernia. 2. Hiatal hernia measures 13 cm. 3. Mild bibasilar atelectasis. 4. Liver hemangioma measures 2.2 cm. 5. Mild enlargement of the prostate gland. 6. Bilateral pars interarticularis defects are present at L5. There is associated grade 1 anterolisthesis.
--- NOTE | 2025-01-19 17:14 | ED_ITS ---
<Statement entered by Macey Garcia DO - 01/19/25 23:24> I was consulted by the BEATA, and we discussed the complexity of the problems being addressed. I approved the treatment and management plan for this patient's care in the emergency department, thus performing a substantive portion of the medical decision making. Macey Garcia DO Discharge Plan Disposition Patient Disposition: Home, Self-Care Condition: Good Chief Complaint: Altered Mental Status Prescriptions Prescriptions: No Action losartan 50 mg tablet 50 mg PO DAILY mecobalamin (vitamin B12) 1,000 mcg tablet,disintegrating 1,000 mcg sublingual DAILY Rx Instructions: place tablet under tongue and allow to dissolve for at least30 secs before swallowing cholecalciferol (vitamin D3) 50 mcg (2,000 unit) capsule 50 mcg PO DAILY potassium chloride 20 mEq tablet,ER particles/crystals 20 meq PO DAILY melatonin 10 mg tablet 20 mg PO HS carbidopa-levodopa 50-200 mg tablet extended release 1 tab PO TID Qty: 90 2RF Rx Instructions: divide evenly over waking hours buspirone 5 mg tablet 7.5 mg PO BID Qty: 60 5RF clonazepam 1 mg tablet 1 mg PO HS Patient Comments: TAKE 1 TABLET 1 TIME EACH DAY AT BEDTIME Myrbetriq 50 mg tablet extended release 24 hr 50 mg PO DAILY Patient Comments: TAKE 1 TABLET 1 TIME EACH DAY entacapone 200 mg tablet See Rx Instructions .ROUTE .COMPLEX Qty: 90 3RF Dose Instruction: TAKE 1 TABLET 3 TIMES EACH DAY WITH CARBIDOPA/LEVODOPA Rx Instructions: TAKE 1 TABLET 3 TIMES EACH DAY WITH CARBIDOPA/LEVODOPA quetiapine [Seroquel] 25 mg tablet 25 mg PO BID Qty: 60 5RF tamsulosin 0.4 mg capsule 0.4 mg PO HS Patient Comments: TAKE 1 CAPSULE 1 TIME EACH DAY atorvastatin 80 MG tablet 80 mg PO HS metoprolol tartrate [Lopressor] 100 MG tablet 100 mg PO DAILY niacin [Slo-Niacin] 500 MG tablet extended release 250 mg PO HS amlodipine 5 MG tablet 5 mg PO DAILY fenofibrate nanocrystallized 145 MG tablet 145 mg PO DAILY Patient Comments: TAKE 1 TABLET ONCE A DAY rivaroxaban 10 MG tablet 10 mg PO DAILY Referrals Follow up/Referrals: Neville Dye MD [Primary Care Provider] - See instructions Clinical Impressions Clinical Impression: Acute kidney injury, Intermittent confusion 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 intake/loss of appetite for the last 2 to 3 days. 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 Was recently started on Nuplazid for hallucinations and delusions, however, patient's has since taken him off the medication due to concern for side effect , patient at the bedside is GCS of 14, he is oriented to person and place, somewhat disoriented to time, but does know month. Patient denies any fever chills chest pain shortness of breath, does admit to some aching and states that he feels tired . But overtly denies any chest pain nausea vomiting abdominal pain urinary type symptomatology, no shortness of breath, or constipation diarrhea. Other past medical history consistent with pulmonary nodules, history of PE, and appears to be on anticoagulation therapy with Xarelto, hypertension, hyperlipidemia, VIRY, CAD. Initial triage vitals unremarkable. Unsure of tobacco/alcohol or drug use history. Onset (ago): day(s) Related Data Home Medications ?Medication ?Instructions ?Recorded ?Confirmed atorvastatin 80 mg tablet 80 mg PO HS 11/28/17 12/08/24 metoprolol tartrate 100 mg tablet 100 mg PO DAILY 11/28/17 12/08/24 (Lopressor) niacin 500 mg tablet,extended 250 mg PO HS 11/28/17 12/08/24 release (Slo-Niacin) amlodipine 5 mg tablet 5 mg PO DAILY 01/05/19 12/08/24 fenofibrate nanocrystallized 145 145 mg PO DAILY 01/06/19 12/08/24 mg tablet rivaroxaban 10 mg tablet 10 mg PO DAILY Blood thinner 07/22/19 12/08/24 cholecalciferol (vitamin D3) 50 50 mcg PO DAILY Supplement 11/28/22 12/08/24 mcg (2,000 unit) capsule losartan 50 mg tablet 50 mg PO DAILY 11/28/22 12/08/24 mecobalamin (vitamin B12) 1,000 1,000 mcg sublingual DAILY 11/28/22 12/08/24 mcg disintegrating tablet,sublingual potassium chloride 20 mEq 20 meq PO DAILY 12/31/22 12/08/24 tablet,extended release(part/cryst) melatonin 10 mg tablet 20 mg PO HS sleep 04/08/23 12/08/24 clonazepam 1 mg tablet 1 mg PO HS 07/23/23 12/08/24 mirabegron 50 mg tablet,extended 50 mg PO DAILY 07/23/23 12/08/24 release 24 hr (Myrbetriq) tamsulosin 0.4 mg capsule 0.4 mg PO HS 03/04/24 12/08/24 Previous Rx's ?Medication ?Instructions ?Recorded buspirone 5 mg tablet 7.5 mg (1.5 x 5 mg) PO BID #60 tabs 12/08/24 carbidopa ER 50 mg-levodopa 200 mg 1 tab PO TID #90 tabs 12/08/24 tablet,extended release entacapone 200 mg tablet See Rx Instructions .Route 01/04/25 .COMPLEX #90 tabs quetiapine 25 mg tablet (Seroquel) 25 mg PO BID Confusion, 01/14/25 hallucinations #60 tabs Allergies Allergy/AdvReac Type Severity Reaction Status Date / Time metoclopramide Allergy Verified 12/08/24 12:48 [facility] <TYSON Zurita - Last Filed: 01/19/25 20:20> [facility] Disclaimer: The information contained in this section may have been updated after the patient was seen, as this information can be updated by other users. Medical History Parkinsons disease Lewy body dementia Deviated septum VIRY (obstructive sleep apnea) Unable to tolerate CPAP and currently on O2 at night Kidney stone GERD (gastroesophageal reflux disease) Depression Heart attack Hyperlipidemia Hypertension Surgical History History of cardiac cath Family History Other Cancer Coronary artery disease Hyperlipidemia Hypertension Social History Smoking Status: Unknown if ever smoked second hand exposure: Yes alcohol intake: never substance use type: denies use current occupational status: retired Travel in the last 8 weeks: None household members: spouse housing: house caffeine: Yes Have you lived/traveled outside [place] in past 30 days?: No Contact w/someone who lives/traveled outside [place] past 30 days?: No Exposure to someone with infectious disease in past 14 days?: No Do you have a fever (greater than 100.4 F or 38 C)?: No Have you tested positive for COVID-19: No Exposed to someone with COVID-19 in past 14 days?: No Do you have a sore throat?: No Do you have a cough?: No Do you have any weakness?: No Do you have any diarrhea?: No Are you experiencing any unusual bleeding?: No Do you have any muscle aches/pain?: No Do you have any abdominal pain?: No Are you experiencing loss of taste or smell?: No Other Medical History Have you received the Flu Vaccine for this season: No Have you received the Pneumonia Vaccine: Yes <TYSON Zurita - Last Filed: 01/19/25 20:20> ROS Obtained: Yes All systems reviewed & no additional complaints except as documented Physical Exam <TYSON Zurita - Last Filed: 01/19/25 20:20> General General appearance: alert and in no apparent distress Head Head exam: atraumatic and normocephalic Eye Eye exam: Present PERRL and EOMI ENT ENT exam: Present mucous membranes dry; Absent mucous membranes moist Neck Neck exam: Present normal inspection Chest Chest inspection: Present normal inspection and symmetric chest wall rise Respiratory Respiratory exam: Present normal lung sounds bilaterally; Absent respiratory distress Cardiovascular Cardiovascular exam: Present regular rate and normal rhythm Abdominal Exam Abdominal exam: Present soft; Absent tenderness Extremities Exam Extremities exam: Present normal inspection Neurological Exam Neurological exam: Present alert and other (GCS of 14, will follow commands and answers questions appropriately, some confusion about date and time, however does not know the month correctly, does know person place., Some slowed respond with questioning, however moves extremities to command) Psychiatric Psychiatric exam: Present normal affect Skin Skin exam: Present warm and dry Medical Decision Making <TYSON Zurita - Last Filed: 01/19/25 20:20> Medical Records Medical records reviewed: Yes I reviewed the patient's medical records. Screening: Per USPSTF and CDC recommendations, given the prevalence of disease in our region, it is our hospital?s policy to screen for HIV and viral Hepatitis for all patients aged 18 and over and those with ongoing risk factors. Santino Inquiry Pt receiving controlled substance: No Santino was queried for this patient: No Vital Signs: 01/19/25 17:06 01/19/25 17:22 01/19/25 17:30 Temperature 99.1 F Temperature Source Oral Pulse Rate 67 66 Pulse Rate [Left Radial] 66 Respiratory Rate 15 14 Blood Pressure 122/81 107/68 L Blood Pressure [Right Arm] 122/81 Blood Pressure Mean [Right Arm] 94 02 Sat by Pulse Oximetry 92 L 96 96 Oxygen Delivery Method Room Air Room Air 01/19/25 18:00 01/19/25 18:30 01/19/25 19:53 Temperature Temperature Source Pulse Rate 59 L 60 61 Pulse Rate [Left Radial] Respiratory Rate 21 22 20 Blood Pressure 106/71 L 111/70 143/80 H Blood Pressure [Right Arm] Blood Pressure Mean [Right Arm] 02 Sat by Pulse Oximetry 94 L 94 L 97 Oxygen Delivery Method Room Air Room Air Room Air Lab Data Lab Results 01/19/25 17:15: WBC 4.9, RBC 4.63, Hgb 14.3, Hct 43.3, MCV 93.5, MCH 30.9, MCHC 33.0, RDW 14.1, Plt Count 196, MPV 10.1, Neut % (Auto) 72.9, Lymph % (Auto) 15.0, [place] % (Auto) 8.6, Eos % (Auto) 2.9, Baso % (Auto) 0.4, Neut # (Auto) 3.6, Lymph # (Auto) 0.7, [place] # (Auto) 0.4, Eos # (Auto) 0.1, Baso # (Auto) 0.0, Sodium 140, Potassium 3.9, Chloride 110 H, Carbon Dioxide 26, Anion Gap 7.9, BUN 33 H, Creatinine 1.70 H, Estimated Creat Clear 36, Estimated GFR 39 L, Est GFR ( Amer) 47 L, Glucose 109 H, Lactate 1.2, Calcium 9.3, Total Bilirubin 0.7, AST 26, ALT 10 L, Alkaline Phosphatase 38, Total Protein 6.2 L, Albumin 3.9, Globulin 2.3, Albumin/Globulin Ratio 1.7, HCV Ab MAYA w/Rflx PCR Qn Negative, HIV Ag/Ab Combo Qual Negative 01/19/25 18:32: Urine Color Yellow, Urine Appearance Clear, Urine pH 5.5, Ur Specific [place] >= 1.030, Urine Protein Negative, Urine Glucose (UA) Negative, Urine Ketones Trace, Urine Blood Negative, Urine Nitrate Negative, Urine Bilirubin Negative, Urine Urobilinogen 0.2, Ur Leukocyte Esterase Negative, Urine RBC 5-10, Urine WBC 3-5, Ur Squamous Epith Cells Occasional, Urine Bacteria 2+, Urine Mucus 4+ 01/19/25 17:15 01/19/25 17:15 Orders (Tests/Meds): ED MEDICATIONS Generic Name Dose Route Start Last Admin Trade Name Freq PRN Reason Stop Dose Admin Sodium Chloride 1,000 mls @ 999 mls/hr 01/19/25 20:06 Sod Chlor 0.9% 1000ml Bag IV 01/19/25 21:06 .Q1H1M ONE Discontinued Medications Generic Name Dose Route Start Last Admin Trade Name Freq PRN Reason Stop Dose Admin Iopamidol 75 ml 01/19/25 18:59 01/19/25 19:00 Iopamidol-370 (76%);100ml Bottle IV 01/19/25 19:00 75 ml ONCE ONE Administration Iopamidol 75 ml 01/19/25 18:58 01/19/25 19:00 Iopamidol-370 (76%);100ml Bottle IV 01/19/25 18:59 Not Given ONCE ONE Sodium Chloride 10 ml 01/19/25 18:59 01/19/25 18:59 Sodium Chloride 0.9% 10ml Syr (Rad Only) IV 01/19/25 19:00 10 ml ONCE ONE Administration Sodium Chloride 10 ml 01/19/25 18:58 01/19/25 19:00 Sodium Chloride 0.9% 10ml Syr (Rad Only) IV 01/19/25 18:59 Not Given ONCE ONE ORDERS Category Date Time Status CT abdomen pelvis w con Stat Cat Scan 01/19/25 17:[address] chest wo con Stat Cat Scan 01/19/25 18:[address] head/brain wo con Stat Cat Scan 01/19/25 17:10 Completed XR chest portable Stat Exams 01/19/25 17:10 Completed Complete Blood Count Auto Diff Stat Lab 01/19/25 17:15 Completed Comprehensive Metabolic Panel Stat Lab 01/19/25 17:15 Completed HIV Combo Stat Lab 01/19/25 17:15 Completed Hepatitis C Ab Qual. W/ RFX Stat Lab 01/19/25 17:15 Completed Lactic Acid Stat Lab 01/19/25 17:15 Completed Urinalysis and Microscopic Stat Lab 01/19/25 18:32 Completed Blood Culture Stat Micro 01/19/25 17:40 Received Urine Culture Stat Micro 01/19/25 18:32 Received Medical Decision Narrative: 79-year-old male presents to the emergency department with altered mental status, decreased p.o. intake, differential diagnose, limited to, acute UTI, uremic encephalopathy, metabolic encephalopathy, delirium, cardiac arrhythmia, electrolyte disturbance, pneumonia. I discussed patient case with attending physician Dr. Garcia Obtain basic laboratory studies, lactic acid level, EKG, urinalysis, CT head without contrast, chest x-ray, and CT abdomen pelvis with contrast for further evaluation as characterization, blood cultures. CBC unremarkable CMP is notable for elevated BUN at 33, creatinine is mildly evaded at 1.7, EGFR is 39,No lactic acidosis is noted, patient does have what appears to be chronic kidney disease, but GFR and creatinine elevation are somewhat acute. Will start 1 L IV NS for this. I reviewed the patient's chest x-ray along the corresponding radiologic report, mild bibasilar atelectasis, questionable infiltrate versus atelectasis within the left lung base/retrocardiac region, lateral view may be of value, very large hiatal hernia measuring at least 14 cm. Urinalysis is unremarkable, negative leukocyte esterase, negative nitrite Urinalysis microscopic analysis is notable for 3-5 WBCs, occasional squamous cells, 2+ bacteria, 4+ urine mucus I reviewed the patient CT chest without contrast on the corresponding radiologic report stable pulmonary artery within the left lung apex measuring 9 mm no acute infiltrates. 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 I reviewed the patient's CT head without contrast on the corresponding radiologic report, no acute intracranial abnormality, chronic consistent changes, minor paranasal sinus disease. I had a long discussion with the patient and family the bedside offered admission for mild JUANA and confusion, as well as poor p.o. intake, patient and would like to pursue outpatient treatment, shared decision-making was utilized I think this is appropriate. Per repeat examination the bedside, patient's GCS is remained around 14, per patient's family at the bedside now (daughter) and at the bedside. Patient is at his neurological baseline, has no upper or lower extremity weakness, moves extremities to command and follows some commands. I recommend strict ED return precautions, good intake with p.o. solids and p.o. fluids. Patient will follow-up with his neurologist as well as PCP as directed. Patient family voiced understanding of the current plan/discharge plan. <Macey Garcia, DO - Last Filed: 01/19/25 17:43> Vital Signs: 01/19/25 17:06 01/19/25 17:22 01/19/25 17:30 Temperature 99.1 F Temperature Source Oral Pulse Rate 67 66 Pulse Rate [Left Radial] 66 Respiratory Rate 15 14 Blood Pressure 122/81 107/68 L Blood Pressure [Right Arm] 122/81 Blood Pressure Mean [Right Arm] 94 02 Sat by Pulse Oximetry 92 L 96 96 Oxygen Delivery Method Room Air Room Air 01/19/25 18:00 01/19/25 18:30 01/19/25 19:53 Temperature Temperature Source Pulse Rate 59 L 60 61 Pulse Rate [Left Radial] Respiratory Rate 21 22 20 Blood Pressure 106/71 L 111/70 143/80 H Blood Pressure [Right Arm] Blood Pressure Mean [Right Arm] 02 Sat by Pulse Oximetry 94 L 94 L 97 Oxygen Delivery Method Room Air Room Air Room Air Lab Data Lab Results 01/19/25 17:15: WBC 4.9, RBC 4.63, Hgb 14.3, Hct 43.3, MCV 93.5, MCH 30.9, MCHC 33.0, RDW 14.1, Plt Count 196, MPV 10.1, Neut % (Auto) 72.9, Lymph % (Auto) 15.0, [place] % (Auto) 8.6, Eos % (Auto) 2.9, Baso % (Auto) 0.4, Neut # (Auto) 3.6, Lymph # (Auto) 0.7, [place] # (Auto) 0.4, Eos # (Auto) 0.1, Baso # (Auto) 0.0, Sodium 140, Potassium 3.9, Chloride 110 H, Carbon Dioxide 26, Anion Gap 7.9, BUN 33 H, Creatinine 1.70 H, Estimated Creat Clear 36, Estimated GFR 39 L, Est GFR ( Amer) 47 L, Glucose 109 H, Lactate 1.2, Calcium 9.3, Total Bilirubin 0.7, AST 26, ALT 10 L, Alkaline Phosphatase 38, Total Protein 6.2 L, Albumin 3.9, Globulin 2.3, Albumin/Globulin Ratio 1.7, HCV Ab MAYA w/Rflx PCR Qn Negative, HIV Ag/Ab Combo Qual Negative 01/19/25 18:32: Urine Color Yellow, Urine Appearance Clear, Urine pH 5.5, Ur Specific [place] >= 1.030, Urine Protein Negative, Urine Glucose (UA) Negative, Urine Ketones Trace, Urine Blood Negative, Urine Nitrate Negative, Urine Bilirubin Negative, Urine Urobilinogen 0.2, Ur Leukocyte Esterase Negative, Urine RBC 5-10, Urine WBC 3-5, Ur Squamous Epith Cells Occasional, Urine Bacteria 2+, Urine Mucus 4+ Orders (Tests/Meds): ED MEDICATIONS Generic Name Dose Route Start Last Admin Trade Name Freq PRN Reason Stop Dose Admin Sodium Chloride 1,000 mls @ 999 mls/hr 01/19/25 20:06 Sod Chlor 0.9% 1000ml Bag IV 01/19/25 21:06 .Q1H1M ONE Discontinued Medications Generic Name Dose Route Start Last Admin Trade Name Freq PRN Reason Stop Dose Admin Iopamidol 75 ml 01/19/25 18:59 01/19/25 19:00 Iopamidol-370 (76%);100ml Bottle IV 01/19/25 19:00 75 ml ONCE ONE Administration Iopamidol 75 ml 01/19/25 18:58 01/19/25 19:00 Iopamidol-370 (76%);100ml Bottle IV 01/19/25 18:59 Not Given ONCE ONE Sodium Chloride 10 ml 01/19/25 18:59 01/19/25 18:59 Sodium Chloride 0.9% 10ml Syr (Rad Only) IV 01/19/25 19:00 10 ml ONCE ONE Administration Sodium Chloride 10 ml 01/19/25 18:58 01/19/25 19:00 Sodium Chloride 0.9% 10ml Syr (Rad Only) IV 01/19/25 18:59 Not Given ONCE ONE ORDERS Category Date Time Status CT abdomen pelvis w con Stat Cat Scan 01/19/25 17:[address] chest wo con Stat Cat Scan 01/19/25 18:[address] head/brain wo con Stat Cat Scan 01/19/25 17:10 Completed XR chest portable Stat Exams 01/19/25 17:10 Completed Complete Blood Count Auto Diff Stat Lab 01/19/25 17:15 Completed Comprehensive Metabolic Panel Stat Lab 01/19/25 17:15 Completed HIV Combo Stat Lab 01/19/25 17:15 Completed Hepatitis C Ab Qual. W/ RFX Stat Lab 01/19/25 17:15 Completed Lactic Acid Stat Lab 01/19/25 17:15 Completed Urinalysis and Microscopic Stat Lab 01/19/25 18:32 Completed Blood Culture Stat Micro 01/19/25 17:40 Received Urine Culture Stat Micro 01/19/25 18:32 Received ECG Data Tracing #1: I reviewed this ECG and interpreted as documented below: Normal sinus rhythm with a ventricular to [address] changes concerning for STEMI. Nonspecific ST/T wave changes. Prominent Q-wave in lead III and aVF. Normal intervals ECG initial impression date: 01/19/25 ECG initial impression time: 17:43 Critical Care <TYSON Zurita - Last Filed: 01/19/25 20:20> Critical Care Time Critical Care Time: No
--- NOTE | 2025-01-19 17:30 | ECG_ITS ---
APPROVED REPORT Exam: Resting ECG HR:65 bpm ECG Measurements Heart Rate 65 AXES [place] 155 P 41 QRSd 114 QRS -40 QT 409 T 21 QTc 420 Conclusion SINUS RHYTHM PATTERN CONSISTENT WITH PULMONARY DISEASE VOLTAGE CRITERIA FOR LVH [MEETS CRITERIA IN ONE OF: R(aVL), S(V1), R(V5), R(V5/V6)+S(V1)] No STEMI Electronically signed by : KOBY QUIÑONES, 01/21/2025 16:18:58
--- NOTE | 2025-01-19 17:32 | PC.NURSE ---
gave pt urinal for urine sample. at bs
[2025-01-19 17:34] LABS: Basophils % 0.4 % (0.1-2.0); Eosinophils # 0.1 K/mm3 (0.0-0.4); Eosinophils % 2.9 % (0.1-12.0); Hematocrit 43.3 % (42.0-52.0); Hemoglobin 14.3 g/dL (14.1-18.0); Lymphocytes # 0.7 K/mm3 (0.7-4.5); Mean Corpuscular Hemoglobin 30.9 pg (27.0-31.2); Mean Corpuscular Volume 93.5 fl (80-94); Mean Platelet Volume 10.1 fl (7.4-10.4); Monocytes # 0.4 K/mm3 (0.1-1.0); Monocytes % 8.6 % (1.7-9.3); Neutrophils # 3.6 K/mm3 (1.8-7.8); Neutrophils % 72.9 % (37.0-80.0); Platelet Count 196 K/mm3 (142-424); Red Blood Count 4.63 M/mm3 (4.60-6.20); Red Cell Distribution Width 14.1 % (11.5-17.5); White Blood Count 4.9 K/mm3 (4.8-10.8)
[2025-01-19 17:39] LABS: Albumin Level 3.9 g/dl (3.5-5.0); Chloride 110 mmol/L (98-107); Potassium 3.9 mmoL/L (3.5-5.1); Sodium 140 mmol/L (136-145)
[2025-01-19 17:42] LABS: Alanine Aminotransferase 10 U/L (12-78); Albumin/Globulin Ratio 1.7 (1.1-1.8); Alkaline Phosphatase 38 U/L (38-126); Anion Gap 7.9 mEq/L (5-15); Aspartate Amino Transferase 26 U/L (17-59); Bilirubin,Total 0.7 mg/dl (0.2-1.3); Blood Urea Nitrogen 33 mg/dl (9-20); Carbon Dioxide 26 mmol/L (22.0-30.0); Creatinine Clearance Estimated 36 mL/min (50-200); Estimated Glomerular Filt Rate 39 ml/min (>60); GFR (African American) 47 ML/MIN (>60); Globulin 2.3 g/dL (1.3-3.2); Total Protein,Serum 6.2 g/dl (6.3-8.2)
[2025-01-19 17:43] LABS: Calcium 9.3 mg/dl (8.4-10.2); Glucose 109 mg/dl (74-100)
[2025-01-19 18:05] LABS: Lactic Acid 1.2 mmol/L (0.7-2.1)
[2025-01-19 18:35] LABS: Microscopic, Urine URINE MICROSCOPIC (MICROSCOPIC)
[2025-01-19 18:40] LABS: Appearance,Urine CLEAR (Clear); Bilirubin,Urine Negative (Negative); Blood, Urine Negative (Negative); Color,Urine YELLOW (Yellow); Glucose,Urine (UA) Negative (Negative); Ketones,Urine TRACE (Negative); Leukocyte Esterase,Urine Negative (Negative); Nitrate,Urine Negative (Negative); PH,Urine 5.5 (5.0-8.5); Protein,Urine Negative (Negative); Urobilinogen,Urine 0.2 EU/dl (0.2)
--- NOTE | 2025-01-19 18:44 | CT_ITS ---
PROCEDURE INFORMATION: Exam: CT Chest Without Contrast; Diagnostic Exam date and time: 01/19/2025 6:57 PM Age: 79 years old Clinical indication: Abnormal findings; Abnormal radiologic exam of lung or chest; Additional info: Questionable findings on cxr TECHNIQUE: Imaging protocol: Diagnostic computed tomography of the chest without contrast. Radiation optimization: All CT scans at this facility use at least one of these dose optimization techniques: automated exposure control; mA and/or kV adjustment per patient size (includes targeted exams where dose is matched to clinical indication); or iterative reconstruction. COMPARISON: CT ANGIO CHEST PE PROTOCOL 03/03/2024 3:17 PM FINDINGS: Lungs: Stable pulmonary nodule within the left lung apex measures 9 mm. Pleural spaces: Unremarkable. No pneumothorax. No pleural effusion. Heart: Unremarkable. No cardiomegaly. No pericardial effusion. Lymph nodes: Unremarkable. No enlarged lymph nodes. Vasculature: Unremarkable. No aortic aneurysm. Bones/joints: Unremarkable. No acute fracture. Soft tissues: Unremarkable. Other findings: 13 cm diameter hiatal herniaImpression. IMPRESSION: 1. Stable pulmonary nodule within the left lung apex measures 9 mm. 2. No acute infiltrates.
[2025-01-19 18:47] LABS: HIV Combo NEGATIVE (Negative)
[2025-01-19 18:55] LABS: Hepatitis C Ab Qual. W/ RFX NEGATIVE (Negative)
[2025-01-19] MEDS: SODIUM CHLORIDE 0.9% 10ML SYR (RAD ONLY) 10 ML IV (18:59)
[2025-01-19] MEDS: IOPAMIDOL-370 (76%);100ML BOTTLE 75 ML IV (19:00)
[2025-01-19 19:01] LABS: Specific Gravity, Urine >= 1.030 (1.005-1.030)
[2025-01-19 19:02] LABS: Bacteria,Urine 2+ /lpf; Mucus,Urine 4+ /lpf; Squamous Epithelial Cell,Urine Occasional #/hpf (0-5)
[2025-01-19] MEDS: 0.9 % SODIUM CHLORIDE 1000ML 1,000 ML 999 ML IV (20:21)
== END 2025-01-19 20:59 | disposition home or self-care (01) ==
PROVIDERS: Physician Assistant; Emergency Provider Emergency Medicine; PCP Family Medicine
DX: G31.83 Neurocognitive disorder with Lewy bodies (principal); F02.83 Dementia in other diseases classified elsewhere, unspecified severity, with mood disturbance; G20.A1 Parkinson's disease without dyskinesia, without mention of fluctuations; I25.10 Atherosclerotic heart disease of native coronary artery without angina pectoris; N17.9 Acute kidney failure, unspecified; M43.06 Spondylolysis, lumbar region; D18.03 Hemangioma of intra-abdominal structures; J98.11 Atelectasis; R63.0 Anorexia; R29.6 Repeated falls; R41.82 Altered mental status, unspecified; F22 Delusional disorders; R53.81 Other malaise; R91.1 Solitary pulmonary nodule; I25.2 Old myocardial infarction; I10 Essential (primary) hypertension; E78.5 Hyperlipidemia, unspecified; G47.33 Obstructive sleep apnea (adult) (pediatric); K44.9 Diaphragmatic hernia without obstruction or gangrene; N40.0 Benign prostatic hyperplasia without lower urinary tract symptoms; J32.9 Chronic sinusitis, unspecified; Z91.A48 Caregiver's other noncompliance with patient's medication regimen for other reason; Z99.81 Dependence on supplemental oxygen; Z88.8 Allergy status to other drugs, medicaments and biological substances; Z87.442 Personal history of urinary calculi; Z80.9 Family history of malignant neoplasm, unspecified; Z82.49 Family history of ischemic heart disease and other diseases of the circulatory system; Z83.438 Family history of other disorder of lipoprotein metabolism and other lipidemia; Z86.711 Personal history of pulmonary embolism; Z79.01 Long term (current) use of anticoagulants
CPT/HCPCS: 70450; 71045; 71250; 74177; 80053; 81001; 83605; 85025; 86803; 87040; 87086; 87389; 93005; 99285; J7030; Q9967

== ENCOUNTER 2025-02-15 20:42 | Observation (INO) | payer MEDICARE, MEDICAID, SELFPAY ==
--- NOTE | 2025-02-15 20:34 | ECG_ITS ---
APPROVED REPORT Exam: Resting ECG HR:56 bpm ECG Measurements Heart Rate [address] 160 P 14 QRSd 118 QRS -25 QT 423 T 87 QTc 414 Conclusion SINUS BRADYCARDIA BORDERLINE LEFT AXIS DEVIATION [QRS AXIS < -20] MODERATE INTRAVENTRICULAR CONDUCTION DELAY [110+ ms QRS DURATION] NONSPECIFIC T-WAVE ABNORMALITY BORDERLINE ECG Electronically signed by : TATIANA REED, 02/16/2025 22:22:17
[2025-02-15 20:47] VITALS: BP 153/92; PULSE 57; RESP 14; TEMP 36.8; O2SAT 98; BMI 22.2
--- NOTE | 2025-02-15 20:49 | ED_ITS ---
Discharge Plan Disposition Chief Complaint: Altered Mental Status Discharge ED Provider: [facility] Adult HPI General Chief complaint: Altered Mental Status Stated complaint: weakness Time Seen by Provider: 02/15/25 20:49 History of Present Illness HPI narrative: Patient is a 79-year-old past medical history of Lewy body dementia, diabetes, hypertension, MT, stroke presenting for altered mental status. Patient is confused and history provided by family at bedside. According to family he has had a decline in his mental status over the last month but this morning noticed that he was more confused and weak compared to normal. Additionally his speech is much softer than what it normally is. He has had no changes to medication but his primary caregiver, his , is currently getting surgery and is not able to provide for him. According to family he has had no nausea, vomiting, falls, diarrhea, numbness Related Data Home Medications ?Medication ?Instructions ?Recorded ?Confirmed atorvastatin 80 mg tablet 80 mg PO HS 11/28/17 12/08/24 metoprolol tartrate 100 mg tablet 100 mg PO DAILY 11/28/17 12/08/24 (Lopressor) niacin 500 mg tablet,extended 250 mg PO HS 11/28/17 12/08/24 release (Slo-Niacin) amlodipine 5 mg tablet 5 mg PO DAILY 01/05/19 12/08/24 fenofibrate nanocrystallized 145 145 mg PO DAILY 01/06/19 12/08/24 mg tablet rivaroxaban 10 mg tablet 10 mg PO DAILY Blood thinner 07/22/19 12/08/24 cholecalciferol (vitamin D3) 50 50 mcg PO DAILY Supplement 11/28/22 12/08/24 mcg (2,000 unit) capsule losartan 50 mg tablet 50 mg PO DAILY 11/28/22 12/08/24 mecobalamin (vitamin B12) 1,000 1,000 mcg sublingual DAILY 11/28/22 12/08/24 mcg disintegrating tablet,sublingual potassium chloride 20 mEq 20 meq PO DAILY 12/31/22 12/08/24 tablet,extended release(part/cryst) melatonin 10 mg tablet 20 mg PO HS sleep 04/08/23 12/08/24 clonazepam 1 mg tablet 1 mg PO HS 07/23/23 12/08/24 mirabegron 50 mg tablet,extended 50 mg PO DAILY 09/26/23 02/11/25 release 24 hr (Myrbetriq) tamsulosin 0.4 mg capsule 0.4 mg PO HS 03/04/24 12/08/24 Previous Rx's ?Medication ?Instructions ?Recorded buspirone 5 mg tablet 7.5 mg (1.5 x 5 mg) PO BID #60 tabs 12/08/24 carbidopa ER 50 mg-levodopa 200 mg 1 tab PO TID #90 tabs 12/08/24 tablet,extended release entacapone 200 mg tablet See Rx Instructions .Route 01/04/25 .COMPLEX #90 tabs quetiapine 25 mg tablet (Seroquel) 25 mg PO BID Confusion, 02/01/25 hallucinations #60 tabs Allergies Allergy/AdvReac Type Severity Reaction Status Date / Time metoclopramide Allergy Verified 12/08/24 12:48 [facility] Disclaimer: The information contained in this section may have been updated after the patient was seen, as this information can be updated by other users. Medical History Parkinsons disease Lewy body dementia Deviated septum VIRY (obstructive sleep apnea) Unable to tolerate CPAP and currently on O2 at night Kidney stone GERD (gastroesophageal reflux disease) Depression Heart attack Hyperlipidemia Hypertension Surgical History History of cardiac cath Family History Other Cancer Coronary artery disease Hyperlipidemia Hypertension Social History Smoking Status: Current every day smoker tobacco type: smokeless tobacco second hand exposure: Yes alcohol intake: never substance use type: denies use current occupational status: retired Travel in the last 8 weeks: None household members: spouse housing: house caffeine: Yes Have you lived/traveled outside [place] in past 30 days?: No Contact w/someone who lives/traveled outside [place] past 30 days?: No Exposure to someone with infectious disease in past 14 days?: No Do you have a fever (greater than 100.4 F or 38 C)?: No Have you tested positive for COVID-19: No Exposed to someone with COVID-19 in past 14 days?: No Do you have a sore throat?: No Do you have a cough?: No Do you have any weakness?: No Do you have any diarrhea?: No Are you experiencing any unusual bleeding?: No Do you have any muscle aches/pain?: No Do you have any abdominal pain?: No Are you experiencing loss of taste or smell?: No Other Medical History Have you received the Flu Vaccine for this season: No Have you received the Pneumonia Vaccine: Yes ROS Obtained: Yes unobtainable due to mental status Physical Exam General General appearance: in no apparent distress and other (Sleeping but easily arousable to voice) Head Head exam: atraumatic Eye Eye exam: Present normal appearance and PERRL ENT ENT exam: Present normal exam Neck Neck exam: Present normal inspection Respiratory Respiratory exam: Present normal lung sounds bilaterally; Absent respiratory distress, wheezes or accessory muscle use Cardiovascular Cardiovascular exam: Present regular rate and bradycardia Abdominal Exam Abdominal exam: Present soft; Absent distention, tenderness, guarding, rebound or rigidity Extremities Exam Extremities exam: Absent tenderness Neurological Exam Neurological exam: Present other (Arousable to voice, alert and oriented x 2, intermittently following directions); Absent motor sensory deficit Medical Decision Making Medical Records Screening: Per USPSTF and CDC recommendations, given the prevalence of disease in our region, it is our hospital?s policy to screen for HIV and viral Hepatitis for all patients aged 18 and over and those with ongoing risk factors. [place] Inquiry Pt receiving controlled substance: No Vital Signs: 02/15/25 20:47 02/15/25 21:00 02/15/25 21:30 Temperature 98.3 F Temperature Source Oral Pulse Rate 58 L 54 L Pulse Rate [Radial] 57 L Respiratory Rate 14 20 19 Blood Pressure 131/81 147/84 H Blood Pressure [Right Arm] 153/92 H Blood Pressure Mean [Right Arm] 112 Blood Pressure Position [Right Arm] Supine 02 Sat by Pulse Oximetry 98 98 97 Oxygen Delivery Method Room Air Room Air 02/15/25 22:00 02/15/25 22:30 Temperature Temperature Source Pulse Rate 51 L 53 L Pulse Rate [Radial] Respiratory Rate 15 14 Blood Pressure 177/94 H 184/100 H Blood Pressure [Right Arm] Blood Pressure Mean [Right Arm] Blood Pressure Position [Right Arm] 02 Sat by Pulse Oximetry 100 95 Oxygen Delivery Method Room Air Room Air Lab Data Lab Results 02/15/25 20:30: WBC 4.7 L, RBC 4.07 L, Hgb 12.5 L, Hct 37.5 L, MCV 92.1, MCH 30.7, MCHC 33.3, RDW 14.1, Plt Count 208, MPV 10.3, Neut % (Auto) 60.6, Lymph % (Auto) 23.3, [place] % (Auto) 10.3 H, Eos % (Auto) 4.7, Baso % (Auto) 0.9, Neut # (Auto) 2.8, Lymph # (Auto) 1.1, [place] # (Auto) 0.5, Eos # (Auto) 0.2, Baso # (Auto) 0.0, VBG pH 7.38, VBG pCO2 42.3, VBG pO2 58.9 H, VBG HCO3 24.3, VBG Total CO2 25.6, VBG O2 Saturation 89.2 H, VBG Base Excess -0.8, VBG Lactic Acid 1.7, Sodium 144, Potassium 3.9, Chloride 116 H, Carbon Dioxide 25, Anion Gap 6.9, BUN 24 H, Creatinine 1.40 H, Estimated Creat Clear 43, Estimated GFR 49 L, Est GFR ( Amer) 59, Glucose 104 H, Calcium 9.4, Total Bilirubin 0.5, AST 20, ALT 9 L, Alkaline Phosphatase 31 L, Total Protein 5.9 L, Albumin 3.3 L, Globulin 2.6, Albumin/Globulin Ratio 1.3, TSH 1.12, Thyroxine (T4) 10.1 02/15/25 20:45: Lactate 1.2, Troponin I < 0.01, Urine Color Yellow, Urine Appearance Clear, Urine pH 6.0, Ur Specific [place] >= 1.030, Urine Protein Trace, Urine Glucose (UA) Negative, Urine Ketones Negative, Urine Blood 3+ A, Urine Nitrate Negative, Urine Bilirubin Negative, Urine Urobilinogen 0.2, Ur Leukocyte Esterase Negative, Urine RBC 20-50, Urine WBC 3-5, Ur Squamous Epith Cells Occasional, Urine Bacteria 1+ 02/15/25 20:30 02/15/25 20:30 Orders (Tests/Meds): ED MEDICATIONS Discontinued Medications Generic Name Dose Route Start Last Admin Trade Name Freq PRN Reason Stop Dose Admin Lactated Ringer's 500 mls @ 999 mls/hr 02/15/25 21:15 02/15/25 21:55 Lactated Ringer's 500ml IV 02/15/25 21:45 999 mls/hr .Q31M ONE Administration ORDERS Category Date Time Status CT head/brain wo con Stat Cat Scan 02/15/25 21:14 Completed Chest XR -- portable [XR chest portable] Stat Exams 02/15/25 21:21 Completed Complete Blood Count Auto Diff Stat Lab 02/15/25 20:30 Completed Comprehensive Metabolic Panel Stat Lab 02/15/25 20:30 Completed Lactic Acid Stat Lab 02/15/25 20:45 Completed T4 (Thyroxine) Stat Lab 02/15/25 20:30 Completed Thyroid Stimulating Hormone Stat Lab 02/15/25 20:30 Completed Troponin I Q3H Lab 02/16/25 00:30 Ordered Troponin I Q3H Lab 02/16/25 03:30 Ordered Troponin I Stat Lab 02/15/25 20:45 Completed Urinalysis and Microscopic Stat Lab 02/15/25 20:45 Completed Venous Blood Gas Routine RT 02/15/25 20:30 Completed Medical Decision Narrative: In summary, this 79-year-old male presents to the emergency department today with altered mental status. On initial evaluation patient is confused but arousable to voice and will intermittently answer questions correctly. He is moving all extremities has no obvious deformity. Differential diagnosis includes but is not limited to UTI, intracranial abnormality, electrolyte abnormality, pneumonia. Based on these concerns, I ordered labs and imaging. ECG personally interpreted demonstrates sinus bradycardia, no ST elevation, prolonged ID interval. Patient received IV fluids for treatment. Labs personally reviewed demonstrate leukopenia, anemia hyperchloremia, elevated creatinine but decreased from baseline. XR personally interpreted demonstrates no pneumothorax or pneumonia. CT imaging personally interpreted demonstrate no large intracranial hemorrhage. I had an interactive discussion with Dr. Dye's team and patient was admitted to their service. On reassessment similar to previous evaluation with no change in mental status. Of note, social determinants of health include poor health literacy. Critical Care Critical Care Time Critical Care Time: No
[2025-02-15 20:50] LABS: Lactate Venous 1.7 mmol/L (0.4-2.0); VBG Base Excess -0.8 mmol/L (-2.4-2.3); VBG HCO3 24.3 mmol/L (23-30); VBG Oxygen Saturation 89.2 % (50-70); VBG PCO2 42.3 mmol/L (35-51); VBG PH 7.38 mmol/L (7.31-7.41); VBG PO2 58.9 mmol/L (28-40); VBG Total CO2 25.6 mmol/L (23-27)
--- OUTSIDE RECORDS SUMMARY | 2025-02-15 20:50 | XMS_ITS ---
Author Organization Unknown TREATMENT PLAN [facility] Start Date Provider Encounter for Check-up [phone] [facility]
[2025-02-15 21:00] VITALS: BP 131/81; PULSE 58; RESP 20; O2SAT 98
--- NOTE | 2025-02-15 21:03 | PC.NURSE ---
MD Head at bedside at this time
[2025-02-15 21:05] LABS: Microscopic, Urine URINE MICROSCOPIC (MICROSCOPIC)
[2025-02-15 21:14] LABS: Albumin Level 3.3 g/dl (3.5-5.0); Chloride 116 mmol/L (98-107); Potassium 3.9 mmoL/L (3.5-5.1); Sodium 144 mmol/L (136-145)
--- NOTE | 2025-02-15 21:14 | CT_ITS ---
PROCEDURE INFORMATION: Exam: CT Head Without Contrast Exam date and time: 02/15/2025 9:38 PM Age: 79 years old Clinical indication: Altered mental status/memory loss TECHNIQUE: Imaging protocol: Computed tomography of the head without contrast. Radiation optimization: All CT scans at this facility use at least one of these dose optimization techniques: automated exposure control; mA and/or kV adjustment per patient size (includes targeted exams where dose is matched to clinical indication); or iterative reconstruction. COMPARISON: CT HEAD/BRAIN WO CON 01/19/2025 6:53 PM FINDINGS: Brain: No acute intracranial hemorrhage, midline shift, or mass effect. Diffuse brain parenchymal volume loss. Cerebral ventricles: No ventriculomegaly. Paranasal sinuses: Stable left frontal sinus osteoma. Mild scattered mucosal thickening. Mastoid air cells: Visualized mastoid air cells are well aerated. Bones: Unremarkable. No acute fracture. Soft tissues: Stable suboccipital subcutaneous lipoma. IMPRESSION: No acute intracranial findings.
[2025-02-15 21:17] LABS: Alanine Aminotransferase 9 U/L (12-78); Albumin/Globulin Ratio 1.3 (1.1-1.8); Alkaline Phosphatase 31 U/L (38-126); Anion Gap 6.9 mEq/L (5-15); Aspartate Amino Transferase 20 U/L (17-59); Bilirubin,Total 0.5 mg/dl (0.2-1.3); Blood Urea Nitrogen 24 mg/dl (9-20); Calcium 9.4 mg/dl (8.4-10.2); Carbon Dioxide 25 mmol/L (22.0-30.0); Creatinine Clearance Estimated 43 mL/min (50-200); Estimated Glomerular Filt Rate 49 ml/min (>60); GFR (African American) 59 ML/MIN (>60); Globulin 2.6 g/dL (1.3-3.2); Glucose 104 mg/dl (74-100); Total Protein,Serum 5.9 g/dl (6.3-8.2)
--- NOTE | 2025-02-15 21:21 | XR_ITS ---
PROCEDURE INFORMATION: Exam: XR Chest Exam date and time: 02/15/2025 9:33 PM Age: 79 years old Clinical indication: Other: AMS TECHNIQUE: Imaging protocol: Radiologic exam of the chest. Views: 1 view. COMPARISON: CT CHEST WO CON 01/19/2025 6:57 PM FINDINGS: Lungs: Low lung volumes. No consolidation. Mild bibasilar atelectasis. Pleural spaces: No pleural effusion. No pneumothorax. Heart/Mediastinum: No cardiomegaly. Large hiatal hernia. Bones/joints: No acute findings. IMPRESSION: No acute findings.
[2025-02-15 21:30] VITALS: BP 147/84; PULSE 54; RESP 19; O2SAT 97
[2025-02-15 21:31] LABS: Appearance,Urine CLEAR (Clear); Bilirubin,Urine Negative (Negative); Blood, Urine 3+ (Negative); Color,Urine YELLOW (Yellow); Glucose,Urine (UA) Negative (Negative); Ketones,Urine Negative (Negative); Leukocyte Esterase,Urine Negative (Negative); Nitrate,Urine Negative (Negative); Protein,Urine TRACE (Negative); Specific Gravity, Urine >= 1.030 (1.005-1.030); Urobilinogen,Urine 0.2 EU/dl (0.2)
[2025-02-15 21:35] LABS: T4 (Thyroxine) 10.1 ug/dl (5.53-11.0)
[2025-02-15 21:36] LABS: Basophils % 0.9 % (0.1-2.0); Eosinophils # 0.2 Kmm3 (0.0-0.4); Eosinophils % 4.7 % (0.1-12.0); Hematocrit 37.5 % (42.0-52.0); Hemoglobin 12.5 g/dL (14.1-18.0); Lymphocytes # 1.1 K/mm3 (0.7-4.5); Lymphocytes % 23.3 % (10-50); Mean Corpuscular HGB Conc 33.3 g/dL (31.8-35.4); Mean Corpuscular Hemoglobin 30.7 pg (27.0-31.2); Mean Corpuscular Volume 92.1 fl (80-94); Mean Platelet Volume 10.3 fl (7.4-10.4); Monocytes # 0.5 K/mm3 (0.1-1.0); Monocytes % 10.3 % (1.7-9.3); Neutrophils # 2.8 K/mm3 (1.8-7.8); Neutrophils % 60.6 % (37.0-80.0); Nucleated Red Blood Cells # 0 10^3/uL; Nucleated Red Blood Cells % 0 %; Platelet Count 208 K/mm3 (142-424); Red Blood Count 4.07 M/mm3 (4.60-6.20); Red Cell Distribution Width 14.1 % (11.5-17.5); Red Cell Distribution Width-SD 47.8 fL; White Blood Count 4.7 K/mm3 (4.8-10.8)
[2025-02-15 21:37] LABS: Lactic Acid 1.2 mmol/L (0.7-2.1)
--- NOTE | 2025-02-15 21:46 | PC.NURSE ---
Addendum entered by Blanca Zamorano RN 02/15/25 21:49: O2 sat 98% Original Note: pt back to room at this time. pt placed on 2L NC per familys request. family reports pt uses 2L NC while sleeping at home.
[2025-02-15] MEDS: RINGERS SOLUTION,LACTATED 500 ML 999 ML IV (21:55)
[2025-02-15 22:00] VITALS: BP 177/94; PULSE 51; RESP 15; O2SAT 100
[2025-02-15 22:15] LABS: Bacteria,Urine 1+ /lpf; RBC,Urine 20-50 #/hpf (0-3); Squamous Epithelial Cell,Urine Occasional #/hpf (0-5)
[2025-02-15 22:20] LABS: Thyroid Stimulating Hormone 1.12 uIU/mL (0.465-4.68)
[2025-02-15 22:30] VITALS: BP 184/100; PULSE 53; RESP 14; O2SAT 95
[2025-02-15 22:30] LABS: Troponin I < 0.01 ng/ml (0.00-0.034)
--- NOTE | 2025-02-15 22:33 | PC.NURSE ---
Pt being admitted to hospitalist for AMS. 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
--- NOTE | 2025-02-15 22:45 | PC.NURSE ---
report called to Hank EVANS at this time
--- NOTE | 2025-02-15 23:32 | PC.NURSE ---
Patient arrived to floor via wheelchair from ED at 23:32.
--- NOTE | 2025-02-15 23:35 | PC.NURSE ---
Called and spoke with pts son regarding pts home meds and pts BP being high. Son reports he had his nighttime meds from his medicine organizer, but he is not sure exactly what medicine was in it. Son reports pts is the one who organizes it and she is in following a recent surgery. Hank EVANS notified of details.
[2025-02-15 23:40] VITALS: BP 196/114; PULSE 86; RESP 18; TEMP 36.8; O2SAT 98
[2025-02-16] VITALS: BP 183/94; PULSE 61; RESP 16; TEMP 36.8; O2SAT 98; BMI 21.7
[2025-02-16 01:14] LABS: Troponin I 0.02 ng/ml (0.00-0.034)
[2025-02-16] MEDS: QUETIAPINE 25MG TABLET 25 MG PO (01:31)
[2025-02-16] MEDS: clonazePAM 1MG TABLET 1 MG PO (01:32)
[2025-02-16 04:00] VITALS: BMI 21.7
[2025-02-16 04:24] LABS: Troponin I < 0.01 ng/ml (0.00-0.034)
[2025-02-16 06:33] LABS: POC Glucose,Bedside 79 (70-110)
--- NOTE | 2025-02-16 07:31 | PC.NURSE ---
med rec completed with external med history. unconfirmed meds to be discussed with family when they arrive, as pt is unable to provide reliable insight.
[2025-02-16 07:47] VITALS: BP 175/105; PULSE 66; RESP 16; TEMP 36.6; O2SAT 98
--- NOTE | 2025-02-16 07:56 | EXP.HP ---
History of Present Illness *Admission Date: 02/16/25 *History of present illness: Mr. Gallardo is an 79-year-old male with a history of Parkinson's disease with Lewy body dementia and upper extremity tremors. He is also noted to have REM behavior, visual hallucinations, acute [place] in 2004, pulmonary embolism, hypertension, hyperlipidemia, obstructive sleep apnea (unable to tolerate CPAP and wears oxygen at night ). He was brought to the emergency room by family due to decline in his mental status over the last month but worse the past 24 hours.. He was noted to be more confused and weak compared to normal. Speech was much softer than normal. He was seen in the office at [facility] on 01/11/2025 and at that time was able to answer questions. Patient is also followed by Dr. Santa, neurology, and was last seen on 12/08/2024. His who is his primary caregiver will be having brain surgery next week and will be unable to care for him. Family [place] [facility] [place] With evaluation in the emergency room he was noted to be confused but arousable to voice. He intermittently answered questions. He was noted to move all extremities. According to the family he had no nausea, vomiting, falls, diarrhea or numbness. Patient was given 500 mL fluid bolus. He was found to be afebrile. He was noted to be hypertensive. He had a complete workup with white blood cell count showing 4.7 and hemoglobin of 12.5 hematocrit 37.5; renal function showed slight decline with a creatinine of 1.4 and GFR of 49. Urine did show 3+ blood. Protein and albumin were both low. TSH was normal. EKG did demonstrate a sinus bradycardia.. Chest x-ray showed nothing acute. head CT showed no acute intracranial findings. This a.m. at time of exam patient is difficult to arouse. Once awake he did try to assist with exam. Answers were yes and no and mumbled. He denied any chest pain, shortness of breath, abdominal pain. [facility] Disclaimer: The information contained in this section may have been updated after the patient was seen, as this information can be updated by other users. Medical History (Updated 02/16/25 @ 08:36 by Tracy Sarmiento APRN) Parkinsons disease Lewy body dementia Deviated septum VIRY (obstructive sleep apnea) Kidney stone GERD (gastroesophageal reflux disease) Depression Heart attack Hyperlipidemia Hypertension Surgical History History of cardiac cath Family History Other Cancer Coronary artery disease Hyperlipidemia Hypertension Social History (Updated 02/16/25 @ 00:15 by Odalys Dye RN) Smoking Status: Current every day smoker tobacco type: smokeless tobacco second hand exposure: Yes alcohol intake: never substance use type: denies use current occupational status: retired Travel in the last 8 weeks: None household members: spouse housing: house caffeine: Yes Have you lived/traveled outside US in past 30 days?: No Contact w/someone who lives/traveled outside US past 30 days?: No Exposure to someone with infectious disease in past 14 days?: No Do you have a fever (greater than 100.4 F or 38 C)?: No Have you tested positive for COVID-19: No Exposed to someone with COVID-19 in past 14 days?: No Do you have a sore throat?: No Do you have a cough?: No Do you have any weakness?: No Are you experiencing any nausea/vomitting?: No Do you have any diarrhea?: No Are you experiencing any unusual bleeding?: No Do you have any muscle aches/pain?: No Do you have any abdominal pain?: No Are you experiencing loss of taste or smell?: No Other Medical History Have you received the Flu Vaccine for this season: No Have you received the Pneumonia Vaccine: No Review of Systems Review of Systems Review of systems (narrative): Information obtained from patient with yes and no answers and also from ER documentation. Constitutional Constitutional: Denies fever(s), Denies headache(s), Reports weakness and Reports weight loss ENT Ears, Nose, Mouth, and Throat: Denies headache(s) and Denies sore throat *Cardiovascular Cardiovascular: Denies chest pain and Denies dyspnea *Respiratory Respiratory: Denies dyspnea *Gastrointestinal Gastrointestinal: Denies loose stools and Denies vomiting *Genitourinary Genitourinary: Denies difficulty urinating *Neurologic Neurologic: Reports abnormal speech, Reports behavioral changes, Reports confusion, Denies headache(s), Reports memory loss, Reports tremor(s) and Reports weakness Psychiatric Psychiatric: Reports behavioral changes, Reports confusion, Reports depression, Reports memory loss and Reports visual hallucinations Meds Home Medications and Allergies Home Medications ?Medication ?Instructions ?Recorded ?Confirmed ?Type atorvastatin 80 mg tablet 80 mg PO HS 11/28/17 02/16/25 History metoprolol tartrate 100 mg tablet 100 mg PO DAILY 11/28/17 02/16/25 History (Lopressor) amlodipine 5 mg tablet 5 mg PO DAILY 01/05/19 02/16/25 History fenofibrate nanocrystallized 145 145 mg PO DAILY 01/06/19 02/16/25 History mg tablet rivaroxaban 10 mg tablet 10 mg PO DAILY 07/22/19 02/16/25 History losartan 50 mg tablet 50 mg PO DAILY 11/28/22 02/16/25 History potassium chloride 20 mEq 20 meq PO DAILY 12/31/22 02/16/25 History tablet,extended release(part/cryst) melatonin 10 mg tablet 20 mg PO HS sleep 04/08/23 02/16/25 History clonazepam 1 mg tablet 1 mg PO HS 07/23/23 02/16/25 History mirabegron 50 mg tablet,extended 50 mg PO DAILY 07/23/23 02/16/25 History release 24 hr (Myrbetriq) tamsulosin 0.4 mg capsule 0.4 mg PO HS 03/04/24 02/16/25 History carbidopa ER 50 mg-levodopa 200 mg 1 tab PO TID #90 tabs 12/08/24 02/16/25 Rx tablet,extended release quetiapine 25 mg tablet (Seroquel) 25 mg PO BID Confusion, 02/01/25 02/16/25 Rx hallucinations #60 tabs buspirone 7.5 mg tablet 7.5 mg PO BID 02/16/25 02/16/25 History entacapone 200 mg tablet 200 mg PO TID 02/16/25 02/16/25 History metoprolol tartrate 100 mg tablet 50 mg PO HS 02/16/25 02/16/25 History New Prescriptions to Start Prescriptions: Allergies Allergy/AdvReac Type Severity Reaction Status Date / Time metoclopramide Allergy Verified 12/08/24 12:48 Exam Data for Last 24 hours Vital signs and Labs for Last 24 Hours: Temp Pulse Resp BP Pulse Ox O2 Del Method O2 Flow Rate 97.8 F 66 16 175/105 H 98 Nasal Cannula 1 02/16/25 07:47 02/16/25 07:47 02/16/25 07:47 02/16/25 07:47 02/16/25 07:47 02/16/25 07:47 02/16/25 07:47 Laboratory Results - last 24 hr 02/15/25 20:30: WBC 4.7 L, RBC 4.07 L, Hgb 12.5 L, Hct 37.5 L, MCV 92.1, MCH 30.7, MCHC 33.3, RDW 14.1, Plt Count 208, MPV 10.3, Neut % (Auto) 60.6, Lymph % (Auto) 23.3, [place] % (Auto) 10.3 H, Eos % (Auto) 4.7, Baso % (Auto) 0.9, Neut # (Auto) 2.8, Lymph # (Auto) 1.1, [place] # (Auto) 0.5, Eos # (Auto) 0.2, Baso # (Auto) 0.0, VBG pH 7.38, VBG pCO2 42.3, VBG pO2 58.9 H, VBG HCO3 24.3, VBG Total CO2 25.6, VBG O2 Saturation 89.2 H, VBG Base Excess -0.8, VBG Lactic Acid 1.7, Sodium 144, Potassium 3.9, Chloride 116 H, Carbon Dioxide 25, Anion Gap 6.9, BUN 24 H, Creatinine 1.40 H, Estimated Creat Clear 43, Estimated GFR 49 L, Est GFR ( Amer) 59, Glucose 104 H, Calcium 9.4, Total Bilirubin 0.5, AST 20, ALT 9 L, Alkaline Phosphatase 31 L, Total Protein 5.9 L, Albumin 3.3 L, Globulin 2.6, Albumin/Globulin Ratio 1.3, TSH 1.12, Thyroxine (T4) 10.1 02/15/25 20:45: Lactate 1.2, Troponin I < 0.01, Urine Color Yellow, Urine Appearance Clear, Urine pH 6.0, Ur Specific [place] >= 1.030, Urine Protein Trace, Urine Glucose (UA) Negative, Urine Ketones Negative, Urine Blood 3+ A, Urine Nitrate Negative, Urine Bilirubin Negative, Urine Urobilinogen 0.2, Ur Leukocyte Esterase Negative, Urine RBC 20-50, Urine WBC 3-5, Ur Squamous Epith Cells Occasional, Urine Bacteria 1+ 02/16/25 00:45: Troponin I 0.02 02/16/25 03:50: Troponin I < 0.01 02/16/25 06:03: POC Glucose 79 I & O for Last 24 hours: Intake & Output 02/13/25 02/14/25 02/15/25 02/16/25 11:59 11:59 11:59 11:59 Intake Total 50 / 50 Output Total 1400 / 1400 Balance -1350 / -1350 Weight 155 lb 8.013 oz Constitutional Constitutional: no acute distress and somnolent *Routine HEENT Exam Head: Present normocephalic and atraumatic Eye: Absent PERRL (Pupils equal and pinpoint), conjunctival icterus, scleral injection or conjunctivae pink ENT: Present mucous membranes moist *Routine Neck Exam Neck: Present supple; Absent carotid bruit, lymphadenopathy or thyromegaly *Routine Respiratory Exam Respiratory: Present CTA bilaterally (Anteriorly and posteriorly) *Routine Cardiovascular Exam Cardiovascular: Present RRR (7 days) *Routine Abdominal Exam Abdominal: Present soft and normoactive bowel sounds; Absent tenderness or distended *Routine Rectal Exam Rectal:: deferred *Routine Genitalia Exam Genitalia:: deferred Comment:: Has pure wick in place. Urine is clear and yellow *Routine Extremities Exam Extremities: Present pulses intact; Absent edema, calf tenderness or palpable cord *Routine Neurological Exam Neurological: Present altered mental status and moving all extremities; Absent normal speech Assessment and Plan *Assessment and plan (1) Altered mental status: Status: Acute Category: Medical Code(s): R41.82 - Altered mental status, unspecified (2) Parkinsonian syndrome: Problem Comment: History, presentation, findings on exam consistent with Lewy body disease. He complained of feeling nervous with internal shaking . 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1 - Tremor, unspecified (6) Visual hallucination: Status: Resolved Category: Medical Code(s): R44.1 - Visual hallucinations (7) REM behavioral disorder: Status: Chronic Category: Medical Code(s): G47.52 - REM sleep behavior disorder (8) History of pulmonary embolism: Status: Acute Category: Medical Code(s): Z86.711 - Personal history of pulmonary embolism (9) HTN (hypertension): Status: Acute Qualifiers: Hypertension type: essential hypertension Qualified Code(s): I10 - Essential (primary) hypertension Category: Medical Code(s): I10 - Essential (primary) hypertension (10) Hyperlipidemia: Status: Acute Category: Medical Code(s): E78.5 - Hyperlipidemia, unspecified (11) Coronary artery disease: Status: Acute Category: Medical Code(s): I25.10 - Atherosclerotic heart disease of [place] coronary artery without angina pectoris (12) Renal insufficiency: Status: Chronic Category: Medical Code(s): N28.9 - Disorder of kidney and ureter, unspecified (13) Physical debility: Status: Acute Category: Medical Code(s): R53.81 - Other malaise Plan Will evaluate medications as to possible cause of somnolence. Will check a urine culture as well. PT and OT have been consulted as well as care management. Will restart blood pressure medicines.
[2025-02-16] MEDS: METOPROLOL TARTRATE 50MG TABLET 100 MG PO (10:17)
[2025-02-16] MEDS: AMLODIPINE 5MG TABLET 5 MG PO (10:17)
[2025-02-16] MEDS: IRBESARTAN 75MG TABLET 75 MG PO (10:17)
[2025-02-16 10:28] LABS: Microscopic, Urine URINE MICROSCOPIC (MICROSCOPIC)
[2025-02-16 10:31] LABS: Appearance,Urine CLEAR (Clear); Bilirubin,Urine Negative (Negative); Blood, Urine 3+ (Negative); Color,Urine YELLOW (Yellow); Glucose,Urine (UA) Negative (Negative); Ketones,Urine Negative (Negative); Leukocyte Esterase,Urine Negative (Negative); Nitrate,Urine Negative (Negative); Protein,Urine Negative (Negative); Specific Gravity, Urine 1.015 (1.005-1.030); Urobilinogen,Urine 0.2 EU/dl (0.2)
[2025-02-16 11:14] LABS: Bacteria,Urine Trace /lpf; RBC,Urine 20-50 #/hpf (0-3); Squamous Epithelial Cell,Urine Occasional #/hpf (0-5); WBC,Urine Occasional #/hpf (0-3)
--- NOTE | 2025-02-16 11:14 | HMH.PTEV ---
Physical Therapy Evaluation Rehab PT IP Evaluation Start: 02/16/25 08:43 Freq: NEEDED Status: Active Protocol: Document 02/16/25 09:15 BILL (Rec: 02/16/25 11:13 PHOARUN [id number]) Subjective/History History History Mr. Gallardo is an 79-year-old male with a history of Parkinson's disease with Lewy body dementia and upper extremity tremors. He is also noted to have REM behavior, visual hallucinations, acute [place] in 2004, pulmonary embolism , hypertension, hyperlipidemia , obstructive sleep apnea. Patient was brought to the ED for a decline in mental status and weakness in the past 24 hours. Subjective Subjective Patient presented supine in bed and was alert to his name and , but unable to identify location. He was willing to participate in therapy this am. Pt was confused and a poor historian, and unable to describe his living situation. Pt was returned to bed with call light in reach. [facility] How much help from another person do you currently need... Turning from your back to your side A little while in a flat bed without using bedrails? Moving from lying on back to sitting on A little the side of a flat bed without using bedrails? Moving to and from a bed to a chair ( A little including a wheelchair)? Standing up from a chair using your arms A little ? (e.g., wheelchair, bedside chair) Walking in hospital room? A little Climbing 3-5 steps with a railing? A lot Mobility Score 17 Mobility Level [facility] Mobility Calculator Mobility 5 Stand (1 or more minutes) Rehab PT IP Eval Objective Appearance Patient Behavior Appropriate,Cooperative Patient Orientation Person,Birthday Difficulty following instructions none Speech Pattern Soft-Spoken,Difficulty Finding Words Ambulation Patient Able to Ambulate Yes Ambulation Observation IP General Gait Pattern Observation Narrow Based Gait,Shuffling Step Ambulation Distance (feet) 5 Ambulation Assistive Device Rolling Walker Ambulation Ability Minimal x 2 (25% assist) Balance Ability to Arise Able, uses arms to help Sitting Balance Steady, safe Standing Balance Steady, wide stance Dynamic Sitting Balance Ability Normal Dynamic Standing Balance Ability Good Transfers Bed Transfer Ability Minimal x 2 (25% assist) Sit to Stand Bed Transfer Ability Minimal x 2 (25% assist) Rehab PT IP prob,goals,plan Problems Date of Evaluation: 02/16/25 PT IP Problems Bed Mobility,Transfers,Gait, Balance,Safety Rehab Potential Rehab Potential Good Equipment Needs Assistive Devices Rolling / Wheeled Walker Plan PT Intervention Plan Bed Mobility,Transfers,Gait, Balance,Safety,Therapeutic Exercise PT Plan Frequency Daily Duration LOS Discharge Goals Bed Transfer Ability Contact Guard/Hand Hold Sit to Stand Chair Transfer Ability Contact Guard/Hand Hold Ambulation Distance (feet) 10 Discharge Plan PT Discharge Plan Patient is currently most appropriate for rehab placement once medically stable for d/c. He required minimal assist x 2 for all bed mobility and ambulation. Skilled acute therapy is currently indicated to improve LE strength, balance, and independence with all mobility to allow him to return to PLOF with all ADLs and ambulation and decrease caregiver burden. Eval Complexity Eval Charge Codes 28371 - High Complexity PHYSICIAN CERTIFICATION: I certify the specified therapy services for Hussein Noble Sami are required, authorized, and reviewed every 30 days.
[2025-02-16 11:36] LABS: POC Glucose,Bedside 136 (70-110)
[2025-02-16] MEDS: risperiDONE 0.25MG TABLET 0.25 MG PO ×2 (11:36→20:31)
--- NOTE | 2025-02-16 11:43 | SW/DCPLANNER ---
Addendum entered by [facility] 02/18/25 09:51: Saniya w/ Hospice stated that their team will be at patient's home around 2PM today to complete admission. Addendum entered by [facility] 02/17/25 14:39: Unable to set up w/ home health due to insurance. Patient's is agreeable to Hospice services. Patient information will be faxed to Saniya w/ Hospice to follow up w/ patient once he returns home. Patient will discharge home today. I will continue to follow up w/ Saniya. Addendum entered by [facility] 02/17/25 14:15: I have contacted patient's again this afternoon regarding discharge. Addendum entered by [facility] 02/17/25 11:30: [facility] have denied this patient. Per patient's she request that patient return home w/ home health services. CM will discuss w/ home health services along w/ waiver services. I have also informed to please follow up w/ [facility] if LTC is needed in the future. Addendum entered by [facility] 02/17/25 08:15: [facility], [place], [facility], [place], [facility], [facility], [facility] and [facility] have all denied/can not accept patient. I am currently waiting to hear back from [facility]. I did speak w/ yesterday afternoon via phone. If skilled placement can not be established she prefer patient return home rather than LTC under his Medicaid. I will continue to follow up w/ facilities and update MD. Addendum entered by [facility] 02/16/25 13:43: [facility]a w/ [facility] was willing to accept this patient under [facility]. Family went to [place] to sign paperwork and decided they are now looking for short term facility under Medicare. I will continue to follow up w/ other facilities. Addendum entered by [facility] 02/16/25 11:53: Patient information has been faxed to [facility], [facility], [facility], [place] [facility] and [facility] at this time. [facility], [facility] and [facility] do not have male beds at this time. Original Note: I spoke w/ patient's via phone regarding discharge plans. PT evaluated patient and recommended placement. stated that she is interested in LTC for this patient. did not have an agency preference. I will make contact w/ facilities and fax patient information today. Discharge date is unknown at this time. I will continue to follow up.
--- NOTE | 2025-02-16 11:54 | HMH.OTEV ---
OT Inpatient Evaluation Rehab OT IP Evaluation Start: 02/16/25 00:16 Freq: ONCE Status: Active Protocol: Document 02/16/25 11:50 [facility] (Rec: 02/16/25 11:53 [facility] [id number]) Rehab OT IP Assessment Subjective History Mr. Gallardo is an 79-year-old male with a history of Parkinson's disease with Lewy body dementia and upper extremity tremors. He is also noted to have REM behavior, visual hallucinations, acute [place] in 2004, pulmonary embolism , hypertension, hyperlipidemia , obstructive sleep apnea. Patient was brought to the ED for a decline in mental status and weakness in the past 24 hours. Subjective Patient presented supine in bed and was alert to his name and , but unable to identify location. He was willing to participate in therapy this am. Pt was confused and a poor historian, and unable to describe his living situation. Pt was returned to bed with call light in reach. Objective Patient Orientation Person Right Upper Extremity Gross ROM WFL Left Upper Extremity Gross ROM WFL Bed Mobility bed mobility-scooting,bed mobility - supine/sit Assist Level Minimal x 2 (25% assist) Transfer Training Sit/Stand Transfer Assist Level Minimal x 2 (25% assist) Rehab OT IP prob,goals,plan Problems Date of Evaluation: 02/16/25 OT IP Problems Bed Mobility,Transfers,Balance ,Self care,Safety Rehab Potential Rehab Potential Good Equipment Needs Assistive Devices Rolling / Wheeled Walker Plan OT intervention Plan Bed Mobility,Transfers,Balance ,Self care,Safety,Therapeutic Exercise OT Plan Frequency Daily Duration LOS Discharge Goals Bed Mobility Ability Standby Assistance,Assistance x1 Sit to Stand Chair Transfer Ability Contact Guard/Hand Hold, Minimal x 1 (25% assist) Chair Transfer Ability Contact Guard/Hand Hold, Minimal x 1 (25% assist) Chair Transfer Technique Sit to/from Ambulatory Chair Transfer Assistive Devices Rolling Walker Lower Body Dressing Ability Minimal Assistance Upper Body Dressing Ability Contact Guard Bathing Ability Minimal Assistance Performing Toilet Hygiene Ability Minimal Assistance Overall Commode/Toilet Transfer Ability Minimal Assistance Commode/Toilet Transfer Technique Sit to/from Ambulatory Discharge Plan OT Discharge Plan Patient is currently most appropriate for rehab placement once medically stable for d/c. He required minimal assist x 2 for all bed mobility and ambulation. Skilled acute therapy is currently indicated to improve UE strength, endurance, ADL independence, and functional transfers to reach PLOF. Eval Complexity Eval Charge Codes 83723 - Moderate Complexity PHYSICIAN CERTIFICATION: I certify the specified therapy services for Hussein Gallardo are required, authorized, and reviewed every 30 days.
[2025-02-16] MEDS: CARBIDOPA/LEVODOPA 25/100MG TABLET 1.5 EACH PO ×2 (13:21→20:31)
[2025-02-16] MEDS: ENTACAPONE 200 MG 200 EACH PO ×2 (13:24→20:36)
[2025-02-16 16:00] VITALS: BP 153/96; PULSE 57; RESP 18; TEMP 36.6; O2SAT 98
[2025-02-16] MEDS: RIVAROXABAN 10 MG PO (16:43)
[2025-02-16 16:53] LABS: POC Glucose,Bedside 140 (70-110)
--- NOTE | 2025-02-16 17:52 | PC.NURSE ---
pt alert to self only. tries to get out of bed at times, but is easily redirected. bed alarm on for safety. pt has had a good appetite this shift and has taken all medications whole with water. home medications brought in from home by son and sent to pharmacy for verification and labeling. purewick in place. no complaints of pain. call light within reach.
[2025-02-16 20:00] VITALS: BP 147/88; PULSE 65; RESP 16; TEMP 36.8; O2SAT 98
[2025-02-16] MEDS: humaLOG 100 UNITS/ML 10ML VIAL (SSI) SUBCUT (20:30)
[2025-02-16] MEDS: *PAT OWN MED* TAMSULOSIN 0.4MG CAPSULE 0.4 MG PO (20:31)
[2025-02-16] MEDS: ATORVASTATIN 80 MG 1 EACH PO (20:35)
[2025-02-16] MEDS: METOPROLOL TARTRATE 100 MG 0.5 EACH PO (20:40)
--- NOTE | 2025-02-16 23:21 | PC.NURSE ---
order desk caller Provider notified about pt's nightly meds. Clonazepam and Quetiapine one time dose ordered for tonight. Provider stated he gave a one time dose also last night and that the pt's orginal provider, Dr. Fernando should have ordered them today. Meds were not ordered for scheduled night meds or PRN's. Provider stated to make a nursing note regarding day shift to talk to Dr. fernando about ordering these meds as scheduled nightly meds.
[2025-02-17] MEDS: QUETIAPINE 25MG TABLET 25 MG PO (00:07)
[2025-02-17] MEDS: clonazePAM 1MG TABLET 1 MG PO (00:07)
[2025-02-17 04:00] VITALS: BP 160/92; PULSE 74; RESP 16; TEMP 36.6; O2SAT 97; BMI 21.7
--- NOTE | 2025-02-17 05:08 | PC.NURSE ---
v/s, pt alert to self only. Pt became agitated around midnight. Pt kept trying to get out of bed [id number], Provider was notified, see orders. Blood glucose monitored. Plan of care ongoing.
[2025-02-17 06:09] LABS: POC Glucose,Bedside 89 (70-110)
[2025-02-17 08:00] VITALS: BP 141/85; PULSE 84; RESP 20; TEMP 36.7; O2SAT 97
--- NOTE | 2025-02-17 08:16 | EXP.ACUTE.PN ---
Subjective *Date: 02/17/25 *Time: 08:16 Interval history: Patient did not rest well through the night. Nursing states he was pulling at his oxygen and could not sleep. He hasn't eaten yet this am. His only complaint is of a stiff neck. Medical Exam Vital signs and Labs for Last 24 Hours: Vital Signs Temp Pulse Resp BP Pulse Ox O2 Del Method O2 Flow Rate 02/17/25 08:00 98.1 F 84 20 141/85 H 97 Room Air 02/17/25 06:06 Room Air 02/17/25 05:00 Room Air 02/17/25 04:00 97.9 F 74 16 160/92 H 97 Room Air 02/17/25 02:46 Room Air 02/17/25 01:00 Room Air 02/16/25 23:00 Room Air 02/16/25 21:00 Room Air 02/16/25 20:00 Room Air 02/16/25 20:00 98.2 F 65 16 147/88 H 98 Nasal Cannula 2 02/16/25 18:45 Nasal Cannula 2 02/16/25 17:00 Room Air 02/16/25 16:00 97.8 F 57 L 18 153/96 H 98 Nasal Cannula 1 02/16/25 15:00 Room Air 02/16/25 13:00 Nasal Cannula 2 02/16/25 11:00 Nasal Cannula 2 02/16/25 09:00 Nasal Cannula 2 Intake and Output 02/16/25 02/17/25 02/17/25 19:59 03:59 11:59 Intake Total 870 / 970 100 / 970 Output Total 1150 / 2150 650 / 2150 350 / 2150 Balance -280 / -1180 -550 / -1180 -350 / -1180 Intake: Intake, Oral Amount 870 / 970 100 / 970 Output: Output, Urine Amount 1150 / 2150 650 / 2150 350 / 2150 Other: Number of Unmeasured Voids 0 Weight 155 lb 7.661 oz Patient Weight 02/17/25 11:59 Weight 155 lb 7.661 oz Laboratory Results - last 24 hr 02/16/25 10:23: Urine Color Yellow, Urine Appearance Clear, Urine pH 7.0, Ur Specific [place] 1.015, Urine Protein Negative, Urine Glucose (UA) Negative, Urine Ketones Negative, Urine Blood 3+ A, Urine Nitrate Negative, Urine Bilirubin Negative, Urine Urobilinogen 0.2, Ur Leukocyte Esterase Negative, Urine RBC 20-50, Urine WBC Occasional, Ur Squamous Epith Cells Occasional, Urine Bacteria Trace 02/16/25 11:26: POC Glucose 136 H 02/16/25 16:42: POC Glucose 140 H 02/17/25 06:02: POC Glucose 89 I & O for Labs for Last 24 Hours: Intake & Output 02/14/25 02/15/25 02/16/25 02/17/25 11:59 11:59 11:59 11:59 Intake Total 970 / 970 Output Total 1999 2150 / 2150 Balance -1950 / -1950 -1180 / -1180 Weight 155 lb 8.013 oz 155 lb 7.661 oz Constitutional: Present no acute distress Respiratory: Present CTA bilaterally Cardiac: Present Reg Rate and Rhythm GI: Present soft; Absent distention or tenderness Extremities: Absent edema Skin: Present intact Neuro: Present awake Assessment and Plan *Assessment and plan (1) Altered mental status: Status: Acute Category: Medical Code(s): R41.82 - Altered mental status, unspecified (2) Parkinsonian syndrome: Problem Comment: History, presentation, findings on exam consistent with Lewy body disease. He complained of feeling nervous with internal shaking . 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1 - Tremor, unspecified (6) Visual hallucination: Status: Resolved Category: Medical Code(s): R44.1 - Visual hallucinations (7) REM behavioral disorder: Status: Chronic Category: Medical Code(s): G47.52 - REM sleep behavior disorder (8) History of pulmonary embolism: Status: Acute Category: Medical Code(s): Z86.711 - Personal history of pulmonary embolism (9) HTN (hypertension): Status: Acute Qualifiers: Hypertension type: essential hypertension Qualified Code(s): I10 - Essential (primary) hypertension Category: Medical Code(s): I10 - Essential (primary) hypertension (10) Hyperlipidemia: Status: Acute Category: Medical Code(s): E78.5 - Hyperlipidemia, unspecified (11) Coronary artery disease: Status: Acute Category: Medical Code(s): I25.10 - Atherosclerotic heart disease of [place] coronary artery without angina pectoris (12) Renal insufficiency: Status: Chronic Category: Medical Code(s): N28.9 - Disorder of kidney and ureter, unspecified (13) Physical debility: Status: Acute Category: Medical Code(s): R53.81 - Other malaise Plan PT/OT felt patient would need rehab placement. Will discuss further care with Dr. Dye.
[2025-02-17] MEDS: ENTACAPONE 200 MG 200 EACH PO ×2 (09:01→13:37)
[2025-02-17] MEDS: CARBIDOPA/LEVODOPA 25/100MG TABLET 1.5 EACH PO ×2 (09:05→13:32)
[2025-02-17] MEDS: METOPROLOL TARTRATE 100 MG 1 EACH PO (09:10)
[2025-02-17] MEDS: LOSARTAN 50 MG 1 EACH PO (09:11)
[2025-02-17] MEDS: AMLODIPINE 5 MG PO (09:11)
[2025-02-17] MEDS: risperiDONE 0.25MG TABLET 0.25 MG PO (09:12)
[2025-02-17 11:21] LABS: Basophils % 0.4 % (0.1-2.0); Eosinophils # 0.1 Kmm3 (0.0-0.4); Hematocrit 45.4 % (42.0-52.0); Hemoglobin 15.6 g/dL (14.1-18.0); Lymphocytes # 0.9 K/mm3 (0.7-4.5); Mean Corpuscular HGB Conc 34.4 g/dL (31.8-35.4); Mean Corpuscular Hemoglobin 30.8 pg (27.0-31.2); Mean Corpuscular Volume 89.7 fl (80-94); Mean Platelet Volume 9.8 fl (7.4-10.4); Monocytes # 0.6 K/mm3 (0.1-1.0); Monocytes % 8.7 % (1.7-9.3); Neutrophils # 5.5 K/mm3 (1.8-7.8); Neutrophils % 76.8 % (37.0-80.0); Nucleated Red Blood Cells # 0 10^3/uL; Nucleated Red Blood Cells % 0 %; Platelet Count 212 K/mm3 (142-424); Red Blood Count 5.06 M/mm3 (4.60-6.20); Red Cell Distribution Width 13.7 % (11.5-17.5); Red Cell Distribution Width-SD 45.1 fL; White Blood Count 7.2 K/mm3 (4.8-10.8)
[2025-02-17 11:38] LABS: Anion Gap 10.6 mEq/L (5-15); Blood Urea Nitrogen 16 mg/dl (9-20); Calcium 9.9 mg/dl (8.4-10.2); Carbon Dioxide 24 mmol/L (22.0-30.0); Chloride 116 mmol/L (98-107); Creatinine Clearance Estimated 49 mL/min (50-200); Estimated Glomerular Filt Rate 58 ml/min (>60); GFR (African American) 70 ML/MIN (>60); Glucose 109 mg/dl (74-100); Potassium 3.6 mmoL/L (3.5-5.1); Sodium 147 mmol/L (136-145)
[2025-02-17 12:11] LABS: POC Glucose,Bedside 106 (70-110)
--- NOTE | 2025-02-17 12:49 | SW/DCPLANNER ---
Addendum entered by Doine Josue 02/17/25 14:28: [facility] are not able to accept patient due to they are at the limit with patient's insurance. [employer] does not take patient's insurance. Oseas Gonzalez Original Note: Spoke with patient's on the phone about once patient is medically stable for discharged if patient has a preference in home health agency. Patient's stated that she has no preference. Patient's stated that she would be interested in waiver services. I will send patient's info to [employer] and to [facility] in [facility]. Will update once i hear back. Oseas Gonzalez
[2025-02-17] MEDS: LORazepam 2MG/ML VIAL 0.5 MG IV (14:30)
--- NOTE | 2025-02-17 14:34 | PC.NURSE ---
This RN reached out to [facility] for other contact numbers for pt family. This rn got one number and when the number is dialed it has a busy tone. Multiple attempts made to call family.
--- NOTE | 2025-02-18 10:14 | SW/DCPLANNER ---
Spoke with patient's on the phone. Patient's stated that her daughter in law is helping taking care of her . Patient's stated that he is doing farely well. Patient's stated that her daughter in law knew of his upcoming appointments. Patient's stated that her son was able to get his medicine picked up. Patient's stated that she has no concerns or questions at this time. Oseas LOYD Rails Developer
--- NOTE | 2025-02-26 14:41 | P.DS_ITS ---
General Admission date:: 02/15/25 Discharge date: 02/17/25 HPI HPI HPI: Mr. Gallardo is an 79-year-old male with a history of Parkinson's disease with Lewy body dementia and upper extremity tremors. He is also noted to have REM behavior, visual hallucinations, acute ME in 2004, pulmonary embolism, hypertension, hyperlipidemia, obstructive sleep apnea (unable to tolerate CPAP and wears oxygen at night ). He was brought to the emergency room by family due to decline in his mental status over the last month but worse the past 24 hours.. He was noted to be more confused and weak compared to normal. Speech w as much softer than normal. He was seen in the office at [facility] on 01/11/2025 and at that time was able to answer questions. Patient is also followed by Dr. Santa, neurology, and was last seen on 12/08/2024. His who is his primary caregiver will be having brain surgery next week and will be unable to care for him. Family was currently looking for halfway placement With evaluation in the emergency room he was noted to be confused but arousable to voice. He intermittently answered questions. He was noted to move all extremities. According to the family he had no nausea, vomiting, falls, diarrhea or numbness. Patient was given 500 mL fluid bolus. He was found to be afebrile. He was noted to be hypertensive. He had a complete workup with white blood cell count showing 4.7 and hemoglobin of 12.5 hematocrit 37.5; renal function showed slight decline with a creatinine of 1.4 and GFR of 49. Urine did show 3+ blood. Protein and albumin were both low. TSH was normal. EKG did demonstrate a sinus bradycardia.. Chest x-ray showed nothing acute. head CT showed no acute intracranial findings. This a.m. at time of exam patient is difficult to arouse. Once awake he did try to assist with exam. Answers were yes and no and mumbled. He denied any chest pain, shortness of breath, abdominal pain. Hospital Course Hospital Course Hospital Course: The patient's medications were evaluated as the possible cause to his somnolence. A urine culture was ordered as well. PT and OT were consulted and he was restarted on his blood pressure medications. Risperidone 0.25 mg was added twice daily. By 02/17/2025, he had not rested well and was pulling at his oxygen. He complained of a stiff neck. PT and OT felt he would need rehab placement. Dr. Dye spoke with the patient's and their desire was to return home as his son would be involved with home care. His is currently [facility] with cancer of the brain status post surgery. A urine was obtained for culture and he was stable to be discharged home. Of note a recent CT scan from 01/19 showed normal kidneys and bladder. Exam Data for Last 24 hours Vital signs and Labs for Last 24 Hours: Temp Pulse Resp BP Pulse Ox O2 Del Method O2 Flow Rate 98.1 F 84 20 141/85 H 97 Room Air 2 02/17/25 08:00 02/17/25 08:00 02/17/25 08:00 02/17/25 08:00 02/17/25 08:00 02/17/25 14:55 02/16/25 20:00 Narrative: Constitutional Constitutional: no acute distress and somnolent *Routine HEENT Exam Head: Present normocephalic and atraumatic Eye: Absent PERRL (Pupils equal and pinpoint), conjunctival icterus, scleral injection or conjunctivae pink ENT: Present mucous membranes moist *Routine Neck Exam Neck: Present supple; Absent carotid bruit, lymphadenopathy or thyromegaly *Routine Respiratory Exam Respiratory: Present CTA bilaterally (Anteriorly and posteriorly) *Routine Cardiovascular Exam Cardiovascular: Present RRR (7 days) *Routine Abdominal Exam Abdominal: Present soft and normoactive bowel sounds; Absent tenderness or distended *Routine Rectal Exam Rectal:: deferred *Routine Genitalia Exam Genitalia:: deferred Comment:: Has pure wick in place. Urine is clear and yellow *Routine Extremities Exam Extremities: Present pulses intact; Absent edema, calf tenderness or palpable cord *Routine Neurological Exam Neurological: Present altered mental status and moving all extremities; Absent normal speech DS: Diagnosis Discharge Diagnosis (1) Altered mental status: Status: Acute Code(s): R41.82 - Altered mental status, unspecified (2) Parkinsonian syndrome: Status: Chronic Code(s): G20.C - Parkinsonism, unspecified Qualifiers: 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 Qualified Code(s): G21.8 - Other secondary parkinsonism Problem details: History, presentation, findings on exam consistent with Lewy body disease. He complained of feeling nervous with internal shaking . (3) Lewy body dementia: Status: Acute Code(s): G31.83 - Neurocognitive disorder with Lewy bodies; F02.80 - Dementia in other diseases classified elsewhere, unspecified severity, without behavioral disturbance, psychotic disturbance, mood disturbance, and anxiety (4) Hallucinations: Status: Inactive Code(s): R44.3 - Hallucinations, unspecified (5) 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 Code(s): G96.9 - Disorder of central nervous system, unspecified; R25.1 - Tremor, unspecified (6) Visual hallucination: Status: Resolved Code(s): R44.1 - Visual hallucinations (7) REM behavioral disorder: Status: Inactive Code(s): G47.52 - REM sleep behavior disorder (8) History of pulmonary embolism: Status: Inactive Code(s): Z86.711 - Personal history of pulmonary embolism (9) HTN (hypertension): Status: Acute Code(s): I10 - Essential (primary) hypertension Qualifiers: Hypertension type: essential hypertension Qualified Code(s): I10 - Essential (primary) hypertension (10) Hyperlipidemia: Status: Acute Code(s): E78.5 - Hyperlipidemia, unspecified (11) Coronary artery disease: Status: Acute Code(s): I25.10 - Atherosclerotic heart disease of [place] coronary artery without angina pectoris (12) Renal insufficiency: Status: Chronic Code(s): N28.9 - Disorder of kidney and ureter, unspecified (13) Physical debility: Status: Acute Code(s): R53.81 - Other malaise Meds Home Medications and Allergies Home Medications ?Medication ?Instructions ?Recorded ?Confirmed ?Type atorvastatin 80 mg tablet 80 mg PO HS 11/28/17 02/16/25 History metoprolol tartrate 100 mg tablet 100 mg PO DAILY 11/28/17 02/16/25 History (Lopressor) amlodipine 5 mg tablet 5 mg PO DAILY 01/05/19 02/16/25 History fenofibrate nanocrystallized 145 145 mg PO DAILY 01/06/19 02/16/25 History mg tablet rivaroxaban 10 mg tablet 10 mg PO DAILY 07/22/19 02/16/25 History losartan 50 mg tablet 50 mg PO DAILY 11/28/22 02/16/25 History potassium chloride 20 mEq 20 meq PO DAILY 12/31/22 02/16/25 History tablet,extended release(part/cryst) melatonin 10 mg tablet 20 mg PO HS sleep 04/08/23 02/16/25 History clonazepam 1 mg tablet 1 mg PO HS 07/23/23 02/16/25 History mirabegron 50 mg tablet,extended 50 mg PO DAILY 07/23/23 02/16/25 History release 24 hr (Myrbetriq) tamsulosin 0.4 mg capsule 0.4 mg PO HS 03/04/24 02/16/25 History carbidopa ER 50 mg-levodopa 200 mg 1 tab PO TID #90 tabs 12/08/24 02/16/25 Rx tablet,extended release quetiapine 25 mg tablet (Seroquel) 25 mg PO BID Confusion, 02/01/25 02/16/25 Rx hallucinations #60 tabs buspirone 7.5 mg tablet 7.5 mg PO BID 02/16/25 02/16/25 History entacapone 200 mg tablet 200 mg PO TID 02/16/25 02/16/25 History metoprolol tartrate 100 mg tablet 50 mg PO HS 02/16/25 02/16/25 History risperidone 0.25 mg tablet 0.25 mg PO BID #60 tabs 02/17/25 Rx New Prescriptions to Start Prescriptions: risperidone Neville Dye Allergies Allergy/AdvReac Type Severity Reaction Status Date / Time metoclopramide Allergy Verified 12/08/24 12:48 Discharge Plan Disposition Patient Disposition: Home, Self-Care Condition: Good Follow up Plan Follow up with: Neville Dye MD [Primary Care Provider] - 03/01/25 9:30 am Prescriptions/Medication Reconciliation: New risperidone 0.25 mg Tablet 0.25 mg PO BID Qty: 60 2RF Continued losartan 50 mg tablet 50 mg PO DAILY potassium chloride 20 mEq tablet,ER particles/crystals 20 meq PO DAILY melatonin 10 mg tablet 20 mg PO HS carbidopa-levodopa 50-200 mg tablet extended release 1 tab PO TID Qty: 90 2RF Rx Instructions: divide evenly over waking hours clonazepam 1 mg tablet 1 mg PO HS Patient Comments: TAKE 1 TABLET 1 TIME EACH DAY AT BEDTIME Myrbetriq 50 mg tablet extended release 24 hr 50 mg PO DAILY Patient Comments: TAKE 1 TABLET 1 TIME EACH DAY quetiapine [Seroquel] 25 mg tablet 25 mg PO BID Qty: 60 5RF tamsulosin 0.4 mg capsule 0.4 mg PO HS Patient Comments: TAKE 1 CAPSULE 1 TIME EACH DAY atorvastatin 80 MG tablet 80 mg PO HS metoprolol tartrate [Lopressor] 100 MG tablet 100 mg PO DAILY amlodipine 5 MG tablet 5 mg PO DAILY fenofibrate nanocrystallized 145 MG tablet 145 mg PO DAILY Patient Comments: TAKE 1 TABLET ONCE A DAY rivaroxaban 10 MG tablet 10 mg PO DAILY entacapone 200 mg tablet 200 mg PO TID metoprolol tartrate 100 mg tablet 50 mg PO HS Patient Comments: TAKE 1 TABLET IN THE MORNING AND TAKE 1/2 TABLET AT BEDTIME. buspirone 7.5 mg tablet 7.5 mg PO BID Patient Comments: TAKE 1 TABLET 2 TIMES EACH DAY Problem Reconciliation Problems Reviewed?: Yes Patient Discharge Instructions ACTIVITY: Limited activity DIET: advance to your usual diet Patient Instructions: DI for Altered Mental Status Print Language: Ukrainian Providers Primary Care Provider: Neville Dye Admit Provider: Mihai Richardson Attending Provider: Neville Dye
== END 2025-02-17 15:19 | disposition home or self-care (01) ==
LOC: ER 20:52 → 2ND 22:41
PROVIDERS: Nurse Practitioner Family; Admitting Provider Internal Medicine Adolescent Medicine; Emergency Provider Student in an Organized Health Care Education/Training Program; PCP Family Medicine; Visit Provider Family Medicine
DX: R41.82 Altered mental status, unspecified (principal); G31.83 Neurocognitive disorder with Lewy bodies; F02.80 Dementia in other diseases classified elsewhere, unspecified severity, without behavioral disturbance, psychotic disturbance, mood disturbance, and anxiety; G96.9 Disorder of central nervous system, unspecified; R25.1 Tremor, unspecified; R44.1 Visual hallucinations; G47.52 REM sleep behavior disorder; Z86.711 Personal history of pulmonary embolism; I10 Essential (primary) hypertension; E78.5 Hyperlipidemia, unspecified; I25.10 Atherosclerotic heart disease of native coronary artery without angina pectoris; N28.9 Disorder of kidney and ureter, unspecified; R53.81 Other malaise; Z88.8 Allergy status to other drugs, medicaments and biological substances; Z79.01 Long term (current) use of anticoagulants; F17.210 Nicotine dependence, cigarettes, uncomplicated; Z74.1 Need for assistance with personal care
CPT/HCPCS: 36415; 70450; 71045; 80048; 80053; 81001; 82803; 82962; 83605; 84436; 84443; 84484; 85025; 93005; 97163; 97166; 97530; 99285; G0378; J2060; J7120